=== PATIENT | female | born 1935 | race Caucasian/White ===

== ENCOUNTER 2017-03-04 07:32 | Inpatient (IN) | payer OTHER, MEDICAID ==
[2017-03-04] VITALS (11 sets, daily range): BP systolic 81–192; BP diastolic 32–128
[~2017-03-04] VITALS: Ht 162.6 cm; Wt 113.8 kg
[~2017-03-04 07:32] MED LIST: APAP/HYDROCODON1 T13 PO; ATORVASTATIN CA40 M1 PO; BG MC; COL100 PO; COUMADIN7.5 MG PO; ENALAPRIL MALEA10 MG PO; FERROUS SULFAT325 M2 PO; FUROSEMIDE40 MG PO; GLIPIZIDE10 M2 PO; GOOD SENSE OMEP20 MG PO; IPRATROPIUM BROM3 M2 HHN; ISOSORBIDE MONO30 MG PO; LAC PO; LEADER C1 TAB PO; LEVOTHYROXINE0.05 M2 PO; MAC100 PO; METFORMIN HCL1000 MG PO; METOPROLOL TAR100 MG PO; PRI20 PO; SYN5 PO; THERA TABS1 TAB PO; VITC PO; XARELTO20 M1 PO
--- NOTE | 2017-03-04 07:32 | NUR ---
PT W/C TO ED BED 5 AT 0735, PT TOOK AGONAL GASP AND THEN SNORING WITHOUT A PULSE; PER ERT PT WAS GETTING OUT OF THE CAR, PT STOOD UP OUT THE VEHICLE, PER ERT PT BECAME UNRESPONSIVE ON ARRIVAL TO TRIAGE
--- NOTE | 2017-03-04 07:35 | NUR ---
CPR IN PROGRESS
--- NOTE | 2017-03-04 07:41 | NUR ---
INTUBATION IN PROGRESS
--- NOTE | 2017-03-04 07:41 | NUR ---
MEDICATED WITH SUCCINYLCHOLINE 80 MG IVP FOR INTUBATION
--- NOTE | 2017-03-04 07:44 | NUR ---
INTUBATED, BILATERAL BREATH SOUNDS AUSCULTATED, POSITIVE CAPNOGRAPHY COLOR CHANGE
--- NOTE | 2017-03-04 07:44 | NUR ---
PALPABLE PULSES, HR 178
--- NOTE | 2017-03-04 07:55 | NUR ---
PT MOVING TO ED T1
--- NOTE | 2017-03-04 08:00 | NUR ---
X-RAY AT BEDSIDE.
--- NOTE | 2017-03-04 08:07 | NUR ---
X-RAY AT BEDSIDE.
--- NOTE | 2017-03-04 08:07 | NUR ---
PT AFIB ON DOCTOR CHIROPRACTIC
[2017-03-04 08:08] LABS: BASOPHIL % 0.4 % (0-2); PLATELET COUNT 284 x10^3mcL (130-400)
[2017-03-04 08:10] LABS: RED CELL DISTRIBUTION WIDTH 15.3 % (11.5-14.5)
--- NOTE | 2017-03-04 08:11 | NUR ---
PT DAUGHTER DOES NOT HAVE OR KNOW PT HOME MEDS AT THIS TIME, STATES "SHE TAKES A LOT", PT WAS RECENTLY STARTED ON XARELTO BUT DAUGHTER IS NOT SURE WHAT IT IS FOR, ASKED IF PT HAS HX OF AFIB BUT PT DAUGHTER IS UNSURE, PT DOES TAKE LEVOTHYROXINE PER DAUGHTER
[2017-03-04 08:15] LABS: CALCIUM 8.5 mg/dL (8.5-10.1); CARBON DIOXIDE 19.1 mmol/L (21-32); CHLORIDE SERUM 107 mmol/L (98-107); CREATININE SERUM 1.3 mg/dL (0.6-1.0); GLUCOSE SERUM 257 mg/dL (74-106); POTASSIUM SERUM 4.2 mmol/L (3.5-5.1); SODIUM SERUM 144 mmol/L (136-145)
--- NOTE | 2017-03-04 08:15 | NUR ---
RT AT BEDSIDE TO DRAW BLOOD GAS PER DRS ORDERS.
--- NOTE | 2017-03-04 08:18 | NUR ---
DR FARIAS AT BEDSIDE TO RE-EVAL PT.
[2017-03-04 08:25] LABS: ALBUMIN 3.5 g/dL (3.4-5.0); ALKALINE PHOSPHATASE 115 U/L (46-116); ALT/SGPT 87 U/L (14-59); AST/SGOT 58 U/L (15-37); BILIRUBIN TOTAL 0.59 mg/dL (0.20-1.00); MAGNESIUM 1.8 mg/dL (1.8-2.4); TOTAL PROTEIN, SERUM 6.9 g/dL (6.4-8.2)
--- NOTE | 2017-03-04 08:29 | NUR ---
RT SANTORO AT BEDSIDE, INTUBATION TUBE PULLED BACK TO 21 AT THE LIP PER DR FARIAS ORDERS AFTER RECIEVING X-RAY CONFIRMATION. OG TUBE INSERTED 6 CM BY KAT FLORENTINO PER DR FARIAS ORDERS AFTER X-RAY CONFIRMATION.
--- NOTE | 2017-03-04 08:30 | NUR ---
PT MEDICATED WITH ATIVAN [address] FARIAS ORDERS DUE TO PT BITTING ON INTUBATION TUBE. PT NO LONGER ATTEMPTING TO BITE INTUBATION TUBE AT THIS TIME. PT REMAINS ON CM.
[2017-03-04 08:37] LABS: UA SPECIFIC GRAVITY <=1.005 (1.005-1.035); microscopic required? YES; urine erythrocyte 1+ (NEGATIVE)
--- NOTE | 2017-03-04 08:42 | NUR ---
PT BECOMING AGGITATED, PT BITTING TUBE AND MOVING EXTREMITIES. DR FARIAS INFORMED.
--- NOTE | 2017-03-04 08:50 | NUR ---
DIPROVAN 5 MCG/KG/MIN INFUSING PER MD ORDERS VIA 20 GURAGE IN RIGHT HAND. ESTIMATED WEIGHT OF 260 POUNDS.
--- NOTE | 2017-03-04 09:30 | NUR ---
PT TO AND FROM CT VIA [facility], ACCOMPANIED BY MYSELF, SALLY PIERCE, AND RADIOLOGY STAFF ROSA, WITHOUT INCIDENCE.
--- NOTE | 2017-03-04 09:37 | NUR ---
PER DR. DINORA WATERMAN ORDERS FOR SEPSIS PROTOCOL FLUIDS, PT NEEDS MA TOTAL OF 2560ML OF NS TO BE GIVEN AT A RATE OF 150ML/HR.
--- NOTE | 2017-03-04 10:17 | NUR ---
CALLED TO GIVE REPORT TO ICU, PER JENNIFER, RN HAS NOT ARRIVED YET FOR REPORT. WILL CALL ME BACK WHEN RN HAS ARRIVED.
--- NOTE | 2017-03-04 10:27 | NUR ---
SOLEDAD FROM LAB AT BEDSIDE FOR LAB DRAW.
--- NOTE | 2017-03-04 10:41 | NUR ---
CALLED [facility] FOR REPORT, NURSE HAS NOT ARRIVED.
[2017-03-04 10:42] LABS: PHOSPHOROUS 7.2 mg/dL (2.5-4.9)
[2017-03-04 10:43] LABS: CHOLESTEROL/HDL RATIO 2.6
[2017-03-04 10:47] LABS: T3 TOTAL 0.73 ng/mL
[2017-03-04 10:50] LABS: FREE T4 0.79 ng/dL (0.76-1.46); FREE THYROXINE INDEX 2.4 ug/dL (1.4-4.5); T4(THYROXINE) 7.1 ug/dL (4.7-13.3)
--- NOTE | 2017-03-04 10:57 | NUR ---
REPORT RECEIVED AT THIS TIME FROM KAREEM STEPHENS RN. ALL QUESTIONS ANSWERED, ALL CONCERNS ADDRESSED. PT HAS RECEIVED 800ML OF BOLUS AT THIS TIME. WILL CONTINUE WITH BOLUS.
--- NOTE | 2017-03-04 11:07 | NUR ---
REPORT CALLED TO CAIO IN ICU TO ROOM 3, SHE WILL ASSUME CARE PRIMARY RN POST TRASNFER./
--- NOTE | 2017-03-04 11:20 | NUR ---
PT ARRIVED TO UNIT AT THIS TIME ACCOMPANIED BY ED RN, MEAT SERVICE TEAM MEMBER AND RT. PT TRANSFERRED TO BED VIA DRAWSHEET METHOD. PT PLACED ON MONITOR AND FLUID BOLUS CONTINUED.
--- NOTE | 2017-03-04 11:21 | NUR ---
PT'S PROPOFOL TURNED OFF AT THIS TIME, MEDICATIONS TO BE CHANGED.
--- NOTE | 2017-03-04 11:25 | NUR ---
FENATANYL DRIP INITIATED AT THIS TIME PER PROTOCOL. PT ON 1MCG/KG/HR AND RECEIVED ORDERED BOLUS. VERSED INITIATED AT THIS TIME PER PROTOCOL RECEIVING 1MG/HR AFTER ORDERED BOLUS. WILL CONTINUE TO MONITOR.
--- NOTE | 2017-03-04 11:28 | NUR ---
DR FRANCISCO AND DR PARK AT PT'S BEDSIDE WITH ITALIAN TEACHER AT THIS TIME TO PLACE RIGHT FEMORAL ARTERIAL LINE.
--- NOTE | 2017-03-04 11:30 | NUR ---
VECURONIUM DRIP INITIATED AT THIS TIME PER PROTOCOL. PT CURRENTLY ON 1.0 MCG/KG/MIN AT THIS TIME. NERVE STIMULATOR ATTACHED WILL MAINTAIN TRAIN OF FOUR.
--- NOTE | 2017-03-04 11:40 | NUR ---
PT'S VENTILTAOR SETTINGS CHANGED AT THIS TIME. PEEP DECREASED TO 5, Vt INCREASED TO 500.
--- NOTE | 2017-03-04 11:42 | NUR ---
DR RODRIGUEZ AND DR NICOLAS AT PT'S BEDSIDE WITH PUBLIC ADDRESS SYSTEM MECHANIC AT THIS TIME TO PLACE RIJ.
--- NOTE | 2017-03-04 11:45 | NUR ---
HYPOTHERMIA INITIATED AT THIS TIME. WILL DECREASE PT'S BODY TEMPERATURE PER PROTOCOL.
--- NOTE | 2017-03-04 11:55 | NUR ---
PT'S BLOOD PRESSURE LOW AT THIS TIME. MAP TRENDING BETWEEN 40-50. FLUID RATE INCREASED TO WIDE OPEN.
--- NOTE | 2017-03-04 11:58 | NUR ---
PT'S BLOOD PRESSURE CONTINUING TO DECREASE, SEDATION HELD AT THIS TIME.
--- NOTE | 2017-03-04 12:10 | NUR ---
LEVOPHED INITIATED AT THIS TIME AT 2MCG/KG/MIN. WILL MONITOR MAP.
--- NOTE | 2017-03-04 12:20 | NUR ---
PT'S MAP REMAINS LOW, INCREASED TO 5MCG/MIN. MAP 53 PER ARTERIAL LINE.
--- NOTE | 2017-03-04 12:30 | NUR ---
PT'S MAP 90, LEVOPHED DECREASEED TO 3MCG/MIN AT THIS TIME. SEDATION INITIATED AT 1MCG/KG/HR OF FENTANYL AND 1 MG/HR OF VERSED.
--- NOTE | 2017-03-04 12:35 | NUR ---
2AMP BICARB IVP GIVEN AT THIS TIME.
--- NOTE | 2017-03-04 12:43 | NUR ---
LEVOPHED HELD AT THIS TIME, MAP 103. WILL CONTINUE TO MONITOR.
--- NOTE | 2017-03-04 12:59 | NUR ---
RECEIVED XRAY REPORT POST CENTRAL LINE PLACEMENT CENTRAL LINE NOT IN PLACE NOTIFIED THAT CENTRAL LINE NOT IN PLACE PATIENT ON THERAPEUTIC HYPOTHERMIA CURRENT DRIPS INFUSING NS VECURONIUM FENTANYL VERSED LEVOPHED
--- NOTE | 2017-03-04 13:05 | NUR ---
ABG DRAWN AT THIS TIME FROM ARTERIAL LINE.
--- NOTE | 2017-03-04 13:15 | NUR ---
SYSTOLIC BP ELEVATED AT THIS TIME. MAP 108. FLUID RATE DECREASED BACK TO 150ML/HR FOR FLUID BOLUS.
--- NOTE | 2017-03-04 13:24 | NUR ---
DR CURTIS IN TO SEE PT AT THIS TIME. UPDATES PROVIDED AT THIS TIME.
--- NOTE | 2017-03-04 13:30 | NUR ---
DR PARK, DR RODRIGUEZ AND DRYING MACHINE OPERATOR PACKAGE YARNS AT BEDSIDE FOR CENTRAL LINE INSERTION.
--- NOTE | 2017-03-04 14:33 | NUR ---
PATIENT CURRENT BP 178/89 @ 1430 2 LITER BOLUS FROM EMERGENCY ROOM COMPLETED AT 1430
--- NOTE | 2017-03-04 14:35 | NUR ---
PT'S FiO2 DECREASED TO 90% AT THIS TIME. PEEP INCREASED TO 7.
--- NOTE | 2017-03-04 14:35 | NUR ---
XRAY AT BEDSIDE AT THIS TIME TO VERIFY CENTRAL LINE PLACEMENT
--- NOTE | 2017-03-04 14:35 | NUR ---
PT'S IV FLUIDS CHANGED TO NS AT 10ML/HR AT THIS TIME.
--- NOTE | 2017-03-04 15:00 | NUR ---
PT REASSESSED AT THIS TIME. PT LAYING IN BED SEDATED AND ON PARALYTIC AT THIS TIME. NO ACUTE CHANGES NOTED IN PT'S STATUS. PT HAS RIJ IN PLACE AND R FEMORAL ARTERIAL LINE IN PLACE. PT'S BLOOD PRESSURE REMAINS ELEVATED AT THIS TIME. PHYSCIANS AWARE. WILL CONTINUET TO MONITOR.
[2017-03-04 15:33] LABS: ALKALINE PHOSPHATASE 105 U/L (46-116); ALT/SGPT 106 U/L (14-59); AST/SGOT 95 U/L (15-37); BILIRUBIN TOTAL 0.5 mg/dL (0.20-1.00); CALCIUM 7.1 mg/dL (8.5-10.1); CARBON DIOXIDE 25.9 mmol/L (21-32); CHLORIDE SERUM 108 mmol/L (98-107); CREATININE SERUM 1.1 mg/dL (0.6-1.0); GLUCOSE SERUM 236 mg/dL (74-106); MAGNESIUM 1.3 mg/dL (1.8-2.4); PHOSPHOROUS 3.7 mg/dL (2.5-4.9); POTASSIUM SERUM 3.8 mmol/L (3.5-5.1); SODIUM SERUM 144 mmol/L (136-145)
[2017-03-04 15:36] LABS: ALBUMIN 2.9 g/dL (3.4-5.0)
--- NOTE | 2017-03-04 15:40 | NUR ---
HEPARIN DRIP INITIATED AT THIS TIME. PT BOLUSED PER PROTOCOL AND DRIP INITIATED AT 1300U/HR RATE 13ML/HR. WILL ORDER PTT FOR SIX HOURS FROM NOW.
--- NOTE | 2017-03-04 15:45 | NUR ---
LASIX IVP GIVEN AT THIS TIME.
--- NOTE | 2017-03-04 16:00 | NUR ---
DR NICOLAS MADE AWARE THAT PT'S BLOOD PRESSURE IS TRENDING IN THE 160s SYSTOLIC WITH MAP >100. NO NEW ORDERS RECEIVED.
--- NOTE | 2017-03-04 16:15 | NUR ---
PT'S FiO2 DECREASED AT THIS TIME TO 80% BY MARIA E RT, WILL CONTINUE TO MONITOR.
--- NOTE | 2017-03-04 16:19 | NUR ---
DR NICOLAS MADE AWARE OF MAGNESIUM LEVEL WELL DECREASED PHOS LEVEL. PHOSLO NOT TO BE GIVEN. MAG RIDER TO BE ORDERED.
--- NOTE | 2017-03-04 17:00 | NUR ---
DAIRY HAND AT BEDSIDE FOR VENOUS US OF BLE.
--- NOTE | 2017-03-04 17:45 | NUR ---
CIVIL CAD TECH AT BEDSIDE AT THIS TIME TO ASSESS PLEURAL EFFUSIONS.
--- NOTE | 2017-03-04 18:08 | NUR ---
ECHOTECH AT BEDSIDE AT THIS TIME.
--- NOTE | 2017-03-04 18:39 | NUR ---
DR NICOLAS PAGED AT THIS TIME. DR HAIR RETURNED CALL AT THIS TIME. INFORMED OF TROPONINS TRENDING UP AT THIS TIME. NO NEW ORDERS RECEIVED.
--- NOTE | 2017-03-04 18:58 | NUR ---
ECHO DONE. NOTIFIED NURSE OF FINDINGS.
--- NOTE | 2017-03-04 19:30 | NUR ---
REPORT RECEIVED FROM MELANI RN. ALL QUESTION ANSWERED AND CONCERNS ADDRESSED.
--- NOTE | 2017-03-04 20:09 | NUR ---
RT AT BEDSIDE TO ASSESS PT.
[2017-03-04 21:06] LABS: ALBUMIN 2.9 g/dL (3.4-5.0); ALKALINE PHOSPHATASE 101 U/L (46-116); ALT/SGPT 105 U/L (14-59); AST/SGOT 73 U/L (15-37); BILIRUBIN TOTAL 0.7 mg/dL (0.20-1.00); CALCIUM 7.6 mg/dL (8.5-10.1); CARBON DIOXIDE 19.2 mmol/L (21-32); CHLORIDE SERUM 106 mmol/L (98-107); GLUCOSE SERUM 343 mg/dL (74-106); MAGNESIUM 2.6 mg/dL (1.8-2.4); PHOSPHOROUS 3.3 mg/dL (2.5-4.9); POTASSIUM SERUM 3.4 mmol/L (3.5-5.1); SODIUM SERUM 140 mmol/L (136-145); TOTAL PROTEIN, SERUM 6.2 g/dL (6.4-8.2)
--- NOTE | 2017-03-04 21:35 | NUR ---
K+ 3.4. DR HAIR NOTIFIED THROUGH [facility].
--- NOTE | 2017-03-04 21:39 | NUR ---
DR HAIR AT BEDSIDE. UPDATED ON PT STATUS. WILL CONTINUE TO MONITOR.
--- NOTE | 2017-03-04 22:28 | NUR ---
RT AT BEDSIDE FOR EKG.
--- NOTE | 2017-03-04 23:08 | NUR ---
PTT RESULT >150. HEPARIN DRIP HELD PER PROTOCOL. PTT ORDERED AT 0105.
[2017-03-05] VITALS (18 sets, daily range): BP systolic 78–175; BP diastolic 47–112
--- NOTE | 2017-03-05 01:39 | NUR ---
TRAIN OF FOUR PERFORMED PT HAD 2:4. VECURONIUM REMAINS OFF. WILL CONTINUE TO MONITOR.
--- NOTE | 2017-03-05 02:13 | NUR ---
PTT >150 HEPARIN REMIANS OFF PTT ORDERED FOR 0400 PER PROTOCOL.TOF 4/4 VECURONIUM RESTARTED AT 0.2 MCG/KG/MIN.
[2017-03-05 03:48] LABS: ALKALINE PHOSPHATASE 86 U/L (46-116); ALT/SGPT 90 U/L (14-59); AST/SGOT 55 U/L (15-37); BILIRUBIN TOTAL 0.69 mg/dL (0.20-1.00); CARBON DIOXIDE 19.8 mmol/L (21-32); CHLORIDE SERUM 109 mmol/L (98-107); CREATININE SERUM 1.2 mg/dL (0.6-1.0); GLUCOSE SERUM 360 mg/dL (74-106); MAGNESIUM 2.1 mg/dL (1.8-2.4); POTASSIUM SERUM 3.7 mmol/L (3.5-5.1); SODIUM SERUM 142 mmol/L (136-145)
[2017-03-05 03:58] LABS: ALBUMIN 2.6 g/dL (3.4-5.0); TOTAL PROTEIN, SERUM 5.6 g/dL (6.4-8.2)
--- NOTE | 2017-03-05 04:00 | NUR ---
PT REMAINS SEDATED ON FENTANYL, VERSED AND VECURONIUM. ETT CONNECTED TO VENT AND REMAINS ON SAME VENT SETTINGS. OGT PRESENT/SECURED. PT REMIANS NPO. LIJ TLC PATENT WITH CVP MONITORING READING 17 AT THIS TIME IN SUPINE POSITION. NS INFUSING AT 10 ML/HR. F/C DRAINING TO GRAVITY. RIGHT FEMORAL ARTERIAL LINE REMAINS IN PLACE, CALIBRATED PER PROTOCOL. AWAITING ON PTT RESULT, HEPARIN REMAINS OFF. WILL CONTINUE TO MONITOR.
[2017-03-05 04:43] LABS: PLATELET COUNT 258 x10^3mcL (130-400)
[2017-03-05 04:45] LABS: BASOPHIL % 0 % (0-2); RED CELL DISTRIBUTION WIDTH 14.6 % (11.5-14.5)
--- NOTE | 2017-03-05 05:30 | NUR ---
PTT RESULTS 46.9. HEPARIN DRIP RESTARTED AT 1300 UNITS/HR. PTT ORDERED FOR 0930.
--- NOTE | 2017-03-05 06:20 | NUR ---
TUBE FEEDING INITIATED. DIABETASOURCE AC INFUSING AT 10 ML/HR, GOAL RATE 30 ML/HR, FWF 100 Q4HR. PLACEMENT VERIFIED BY AIR BOLUS TO GASTRIC REGION. WILL CONTINUE TO MONITOR.
--- NOTE | 2017-03-05 06:34 | NUR ---
DR NICOLAS NOTIFIED VIA [facility] OF ABG RESULTS.
--- NOTE | 2017-03-05 06:37 | NUR ---
RT NOTIFIED THAT DR NICOLAS ASKED FOR RT TO COME AND CHANGE SETTINGS, BASED ON RECENT ABG RESULTS. 0638 RT AT BEDSIDE.
--- NOTE | 2017-03-05 06:40 | NUR ---
PT CONTINUES TO BE SEDATED ON FENTANYL 1 MCG/KG/HR, VERSED 1 MG/HR AND VECUROMINUM 0.3 MCG/KG/MIN. PT CONTINUES ON HYPOTHERMIA THERAPY. PT WIPED DOWN WITH 2% LEOPOLDO WIPES PER PROTOCOL. PATIENT IS IN NEGATIVE FLUID BALANCE, DR NICOLAS UPDATED ON PT STATUS AND FIO2 ADJUSTED BY RT TO 90% PER DR NICOLAS'S REQUEST FOR RT TO CHANGE. WILL ENDORSE CARE TO INCOMING NURSE.
--- NOTE | 2017-03-05 07:00 | NUR ---
REPORT RECEIVED AT THIS TIME AT PT'S BEDSIDE. ALL QUESTIONS ANSWERED, ALL CONCERNS ADDRESSED.
--- NOTE | 2017-03-05 07:05 | NUR ---
PT LAYING IN BED SEDATED AT THIS TIME. TRAIN OF FOUR ATTEMPTED, ABSENT AT THIS TIME. VECURONIUM DECREASED TO 0.1 MCG/KG/MIN. WILL CONTINUE TO MONITOR.
--- NOTE | 2017-03-05 07:13 | NUR ---
PT'S SON CALLED UNIT. SON UPDATED ON PT'S STATUS.
--- NOTE | 2017-03-05 07:15 | NUR ---
PT ASSESSED AT THIS TIME. PT REMAINS ON COOLING MEASURES FOR HYPOTHERMIA. PT REMAINS SEDATED WITH FENT AT 1MCG/KG/HR AND VERSED AT 1MG/HR. VECURONIUM IN PLACE AT 0.1MCG/KG/MIN. NO ACUTE CHNAGES NOTED, TRAIN OF FOUR REMAINS ABSENT. WILL CONTINUE TO MONITOR AND PLACE ON HOLD IF INDICATED. PT IS UNABLE TO FOLLOW COMMANDS BUT HAS INCREASES IN BLOOD PRESSURE AND HR WHEN STIMULATED.
--- NOTE | 2017-03-05 07:30 | NUR ---
DR FRANCISCO IN TO ASSESS PT AT THIS TIME. UPDATES PROVIDED. BONNIE CHIRINOS'd. VENT SETTINGS CHANGED AT THIS TIME TO PC MODE: RATE 18, PEEP 7, PRESSURE 22, FiO2 80%, I-TIME 1.2. WILL CONTINUE TO MONITOR.
--- NOTE | 2017-03-05 07:35 | NUR ---
MARIA E RT ON UNIT AT THIS TIME TO ASSESS PT. UPDATED ON CHANGES TO VENT SETTINGS. ABG TO BE DRAWN IN ONE HOUR.
--- NOTE | 2017-03-05 08:00 | NUR ---
PT CONTINUES TO HAVE NO TRAIN OF FOUR. VECURONIUM HELD AT THIS TIME. WILL CONTINUE TO MONITOR.
--- NOTE | 2017-03-05 08:13 | NUR ---
DR CROCKER, RESIDENTS AND INTERNS ROUNDING AT THIS TIME. UPDATES PROVIDED. NO NEW ORDERS RECEIVED.
--- NOTE | 2017-03-05 08:31 | NUR ---
DR NICOLAS IN TO ASSESS PT AT THIS TIME. UPDATES PROVIDED.
--- NOTE | 2017-03-05 08:45 | NUR ---
ABG DRAWN AT THIS TIME FROM ARTERIAL LINE.
--- NOTE | 2017-03-05 08:52 | NUR ---
RADIOLOGY AT BEDSIDE AT THIS TIME TO TAKE CXR.
--- NOTE | 2017-03-05 09:05 | NUR ---
PEEP INCREASED TO 8 AT THIS TIME BY RT.
--- NOTE | 2017-03-05 09:30 | NUR ---
GRAVITY FLOW IRRIGATOR AT BEDSIDE FOR CMP AND PTT. LABS DRAWN BY CHADD.
--- NOTE | 2017-03-05 09:45 | NUR ---
PT'S FAMILY AT BEDSIDE. EDUCATED ON REWARMING PROCESS AND POSSIBLE OUTCOMES.
--- NOTE | 2017-03-05 09:57 | NUR ---
RT AT BEDSIDE FOR EKG AT THIS TIME.
--- NOTE | 2017-03-05 10:10 | NUR ---
FiO2 DECREASED TO 75% AT THIS TIME BY RT.
[2017-03-05 10:16] LABS: ALKALINE PHOSPHATASE 89 U/L (46-116); ALT/SGPT 98 U/L (14-59); AST/SGOT 51 U/L (15-37); BILIRUBIN TOTAL 0.81 mg/dL (0.20-1.00); CALCIUM 7.7 mg/dL (8.5-10.1); CARBON DIOXIDE 24.1 mmol/L (21-32); CHLORIDE SERUM 105 mmol/L (98-107); CREATININE SERUM 1.3 mg/dL (0.6-1.0); GLUCOSE SERUM 416 mg/dL (74-106); MAGNESIUM 2.1 mg/dL (1.8-2.4); PHOSPHOROUS 2.4 mg/dL (2.5-4.9); POTASSIUM SERUM 3.5 mmol/L (3.5-5.1); SODIUM SERUM 140 mmol/L (136-145); TOTAL PROTEIN, SERUM 6.2 g/dL (6.4-8.2)
--- NOTE | 2017-03-05 10:30 | NUR ---
PT HAS POSITIVE TRAIN OF FOUR AT THIS TIME. VECURONIUM REMAINS ON HOLD.
[2017-03-05 10:35] LABS: ALBUMIN 2.9 g/dL (3.4-5.0)
--- NOTE | 2017-03-05 10:50 | NUR ---
PTT LAB RESULTS RECEIVED AT THIS TIME. PTT 122.4, HEPARIN DRIP PLACED ON HOLD. WILL CHECK PTT AT 1250.
--- NOTE | 2017-03-05 11:15 | NUR ---
PT REASSESSED AT THIS TIME. PT LAYING IN BED. REMAINS OFF OF VECURONIUM AT THIS TIME. PT HAS POSITIVE TRAIN OF FOUR AT SENSITIVITY OF 9. PT ON FENTANYL AND VERSED AT THIS TIME. NO ACUTE CHNAGES NOTED IN PT'S STATUS. PT BREATHING EQUAL AND UNLABORED ON VENT. WILL CONTINUE TO MONITOR.
--- NOTE | 2017-03-05 11:20 | NUR ---
PT'S TUBE FEEDING ADVANCED TO 20ML/HR AT THIS TIME. PT HAS 5ML RESIDUAL NOTED AND REPLACED.
--- NOTE | 2017-03-05 11:22 | NUR ---
DR NICOLAS INFORMED OF PHOS LEVEL OF 2.4. WILL AWAIT NEW ORDERS.
--- NOTE | 2017-03-05 11:45 | NUR ---
REWARMING PROCESS INITIATED AT THIS TIME. PT'S BLANKET INCREASED FROM 33.0 DEGREES CELCIUS TO 33.5 DEGREES CELCIUS. FAMILY INFORMED. WILL CONTINUE TO MONITOR.
--- NOTE | 2017-03-05 12:10 | NUR ---
PT'S HR TRENDING IN LOW 50s AND HIGH 40s. FENTANYL HELD AT THIS TIME. PT HAVING ARRHYTHMIAS, PVCs AND PACs.
--- NOTE | 2017-03-05 12:20 | NUR ---
PT'F FiO2 TITRATED DOWN TO 70% AT THIS TIME BY RT.
--- NOTE | 2017-03-05 12:27 | NUR ---
PT CONTINUING TO HAVE CHANGES IN CARDIAC RATE AND RHYTHM WELL FLUCTUATIONIS IN BLOOD PRESSURE. WILL CONTINUE TO MONITOR.
--- NOTE | 2017-03-05 12:40 | NUR ---
DIE REPAIR MACHINIST AT BEDSIDE FOR PTT DRAW
--- NOTE | 2017-03-05 12:45 | NUR ---
PT'S GAYMAR INCREASED TO 34.0 DEGREES CELCIUS AT THIS TIME. WILL CONTINUE TO MONITOR. FAMILY UPDATED ON PT'S CURRENT STATUS.
--- NOTE | 2017-03-05 13:00 | NUR ---
PT ABLE TO NOD HEAD "YES", SQUEEZE HAND AND ATTEMPTS TO OPEN EYES. WILL CONTINUE TO MONITOR PT'S STATUS. FAMILY UPDATED.
--- NOTE | 2017-03-05 13:05 | NUR ---
DR NICOLAS UPDATED ON PT'S STATUS. NO NEW ORDERS RECEIVED.
--- NOTE | 2017-03-05 13:35 | NUR ---
PT'S PTT RECEIVED AT THIS TIME. 69.1, HEPARIN INFUSION REDUCED BY 2ML/HR. NEW RATE 1100U/HR (11ML/HR). WILL CONTINUE TO MONITOR.
--- NOTE | 2017-03-05 13:40 | NUR ---
DR WORTHINGTON AT BEDSIDE AT THIS TIME TO ASSESS PT'S STATUS. PT ABLE TO SQUEEZE L HAND ON COMMAND AND ATTEMPTS TO OPEN EYES.
--- NOTE | 2017-03-05 13:45 | NUR ---
[facility] TEMPERATURE INCREASED TO 34.5 DEGREES CELCIUS AT THIS TIME. WILL CONTINUE TO MONITOR.
--- NOTE | 2017-03-05 14:35 | NUR ---
CLAIMS ATTORNEY AT BEDSIDE FOR LAB DRAW AT THIS TIME.
--- NOTE | 2017-03-05 14:45 | NUR ---
[facility] TEMPERATURE INCREASED AT THIS TIME TO 35 DEGREES CELCIUS.
--- NOTE | 2017-03-05 15:00 | NUR ---
DR CURTIS AT PT'S BEDSIDE AT THIS TIME. UPDATES PROVIDED. DR CURTIS SPEAKING WITH FAMILY AT THIS TIME. EDUCATION PROVIDED BY DR CURTIS ON CARDIAC CATH PROCEDURE, BENEFITS AND RISKS. FAMILY CONSENTING TO PROCEDURE.
[2017-03-05 15:20] LABS: ALKALINE PHOSPHATASE 86 U/L (46-116); ALT/SGPT 95 U/L (14-59); AST/SGOT 39 U/L (15-37); BILIRUBIN TOTAL 0.8 mg/dL (0.20-1.00); CALCIUM 7.5 mg/dL (8.5-10.1); CARBON DIOXIDE 22.8 mmol/L (21-32); CHLORIDE SERUM 104 mmol/L (98-107); CREATININE SERUM 1.4 mg/dL (0.6-1.0); GLUCOSE SERUM 411 mg/dL (74-106); MAGNESIUM 1.9 mg/dL (1.8-2.4); PHOSPHOROUS 2.6 mg/dL (2.5-4.9); POTASSIUM SERUM 3.4 mmol/L (3.5-5.1); SODIUM SERUM 140 mmol/L (136-145); TOTAL PROTEIN, SERUM 6.2 g/dL (6.4-8.2)
[2017-03-05 15:24] LABS: ALBUMIN 2.8 g/dL (3.4-5.0)
--- NOTE | 2017-03-05 15:28 | NUR ---
DR NICOLAS MADE AWARE OF K LEVEL 3.4. UPDATES PROVIDED ON PLAN TO PERFORM CARDIAC CATH TOMORROW.
--- NOTE | 2017-03-05 15:38 | NUR ---
PT GRIMACING AT THIS TIME. FENTANYL INITIATED AT 0.5MCG/KG/HR. WILL CONTINUE TO MONITOR.
--- NOTE | 2017-03-05 15:45 | NUR ---
GAYMAR TEMP INCREASED AT THIS TIME TO 35.5 DEGREES CELCIUS. WILL CONTINUE TO MONITOR PT'S STATUS THROUGHOUT SHIFT.
--- NOTE | 2017-03-05 16:00 | NUR ---
FENTANYL HELD AT THIS TIME. PT BECOMING HYPOTENSIVE. WILL CONTINUE TO MONITOR.
--- NOTE | 2017-03-05 16:05 | NUR ---
PT REASSESSED AT THIS TIME. PT LAYING IN BED RESTING AT THIS TIME. PT REMAINS SEDATED BUT ABLE TO FOLLOW COMMANDS. PT ON REWARMING PROTOCOL AT THIS TIME. NO ACUTE CHANGES NOTED IN PT'S STATUS AT THIS TIME. WILL CONTINUE TO MONITOR THROUGHOUT REMAINDER OF SHIFT.
--- NOTE | 2017-03-05 16:10 | NUR ---
PT'S RESIDUAL 90ML AT THIS TIME AFTER RECENT FWF. TUBE FEEDING RATE INCREASED TO GOAL OF 30ML/HR AT THIS TIME.
--- NOTE | 2017-03-05 16:45 | NUR ---
GAYMAR TEMPERATURE INCREASED TO 36 DEGREES CELCIUS AT THIS TIME. WILL CONTINUE TO MONITOR.
--- NOTE | 2017-03-05 16:55 | NUR ---
RESTRAINTS PLACED AT THIS TIME. PT IS MORE AWAKE AND IS ATTEMPING TO PULL ON LINES.
--- NOTE | 2017-03-05 17:58 | NUR ---
PT'S BODY TEMP 97.1 AT THIS TIME PER RECTAL THERMOMETER.
--- NOTE | 2017-03-05 18:09 | NUR ---
PT'S TEMP 97.8 AT THIS TIME. WARMING MEASURES OFF AT THIS TIME. WILL MONTIOR PT'S STATUS.
--- NOTE | 2017-03-05 18:15 | NUR ---
HEPARIN HELD AT THIS TIME. WILL RESUME AT 1914 AT RATE OF 800U/HR. FOR PTT 106.2.
--- NOTE | 2017-03-05 19:15 | NUR ---
HEPARIN DRIP RESTARTED AT THIS TIME AT 800U/HR.
--- NOTE | 2017-03-05 19:15 | NUR ---
REPORT RECIEVED FROM MELANI RN. ALL QUESTIONS ANSWERED AND CONCERNS ADDRESSED.
--- NOTE | 2017-03-05 19:23 | NUR ---
REPORT GIVEN TO NOC RN AT THIS TIME. ALL QUESTIONS ANSWERED, ALL CONCERNS ADDRESSED.
--- NOTE | 2017-03-05 20:03 | NUR ---
RECIEVED PT AND IS SEDATED ON VERSED 1 MG/HR. RSS 4. HOB ELEVATED. NS IFUSING AT 10 ML/HR. HEPARIN INSFUSING AT 800 UNITS/HR. LIJ PRESENT/SECURED. F/C PRESENT AND DRAINING TO GRAVITY. ETT CONECTED TO VENT. SETTINGS; PRESSURE CONTROL, FIO2 70, RATE 18, PRESSURE 12 OVER PEEP OF 8. OGT PRESENT/SECURED. CVP AND RIGHT FEMORAL ARTERIL LINE PRESENT/SECURED. SOFT WRIST RESTRAINTS IN PLACE. BED LOWEST POSITION AND RAILS UP. WILL CONTINUE TO MONITOR.
--- NOTE | 2017-03-05 20:26 | NUR ---
SPEECH PATHOLOGIST ASSISTANT AT BEDSIDE FOR LAB DRAWS.
--- NOTE | 2017-03-05 20:41 | NUR ---
PT APPEARS DISTRESSED, ATTEMPTS TO MOVE ARMS TOWARDS LINES AND TUBING. FENTANYL INITIATED AT THIS TIME AT 1 MCG/KG/HR. WILL MONITOR PT CLOSELY.
[2017-03-05 20:53] LABS: ALBUMIN 2.6 g/dL (3.4-5.0); ALKALINE PHOSPHATASE 77 U/L (46-116); ALT/SGPT 78 U/L (14-59); AST/SGOT 35 U/L (15-37); BILIRUBIN TOTAL 0.59 mg/dL (0.20-1.00); CALCIUM 7.5 mg/dL (8.5-10.1); CHLORIDE SERUM 107 mmol/L (98-107); CREATININE SERUM 1.7 mg/dL (0.6-1.0); GLUCOSE SERUM 339 mg/dL (74-106); MAGNESIUM 1.9 mg/dL (1.8-2.4); PHOSPHOROUS 2.3 mg/dL (2.5-4.9); POTASSIUM SERUM 3.9 mmol/L (3.5-5.1); SODIUM SERUM 141 mmol/L (136-145); TOTAL PROTEIN, SERUM 5.8 g/dL (6.4-8.2)
--- NOTE | 2017-03-05 21:05 | NUR ---
LEVOPHED INFUSING AT 5 MCG/MIN. WILL MONITOR CLOSELY.
--- NOTE | 2017-03-05 21:05 | NUR ---
LEVOPHED INITIATED AT THIS TIME FOR MAP BELOW 65, WILL MONITOR PT CLOSELY.
--- NOTE | 2017-03-05 22:00 | NUR ---
LEVOPHED TITRATED TO 2 MCG/MIN FOR BP MAP OF 142, WILL MONITOR PT CLOSELY.
--- NOTE | 2017-03-05 23:15 | NUR ---
REASSESSMENT PERFORMED AT THIS TIME. PT IS SEDATED ON VERSED 1 MG/HR. NS INFUSING @ 10 ML/HR. HEPARIN 800 UNITS/HR. AND LEVOPHED 2 MCG/MIN. LIJ TLC ALL PORTS PATENT. IV'S LEFT HAND, RIGHT AC AND RIGHT HAND FLUSHING WELL. ETT/OGT PRESENT/SECURED. ETT REMAINS ON VENT WITH SAME SETTINGS. F/C DRAINING TO GRAVITY. RIGHT FEMORAL AKUBE AND CVP CALIBRATED PER PROTOCOL. SOFT WRIST RESTRAINTS REMAIN FOR PT SAFETY. BED IN LOWEST POSITION AND RAIL UP. WILL CONTINUE TO MONITOR.
--- NOTE | 2017-03-05 23:22 | NUR ---
PTT IS 50.1, NO CHANGE TO HEPARIN DRIP.
--- NOTE | 2017-03-05 23:46 | NUR ---
PT AGITATED, ATTEMPTS TO PULL AT LINES, VERSED TITRATED TO 2 MG/HR.
[2017-03-06] VITALS (15 sets, daily range): BP systolic 86–154; BP diastolic 44–86
--- NOTE | 2017-03-06 | NUR ---
TUBE FEEDING STOPPED AT THIS TIME. PT TO GO TO CARDIAC SERVICE DESK TEAM LEAD TOMORROW. WILL CONTINUE TO MONITOR.
--- NOTE | 2017-03-06 01:38 | NUR ---
VERSED TITRATED TO 1.5 MG/HR AT THIS TIME, WILL MONITOR PT CLOSELY.
--- NOTE | 2017-03-06 02:38 | NUR ---
REPRODUCTION ORDER PROCESSOR AT BEDSIDE FOR BLOOD DRAW.
--- NOTE | 2017-03-06 02:47 | NUR ---
PT IS HYPOTENSIVE AT THIS TIME, FENTANYL TITRATED OFF, WILL MONITOR PT CLOSELY.
[2017-03-06 02:57] LABS: ALKALINE PHOSPHATASE 75 U/L (46-116); ALT/SGPT 74 U/L (14-59); AST/SGOT 30 U/L (15-37); BILIRUBIN TOTAL 0.6 mg/dL (0.20-1.00); CALCIUM 7.4 mg/dL (8.5-10.1); CARBON DIOXIDE 24.1 mmol/L (21-32); CHLORIDE SERUM 108 mmol/L (98-107); CREATININE SERUM 1.8 mg/dL (0.6-1.0); GLUCOSE SERUM 219 mg/dL (74-106); MAGNESIUM 1.8 mg/dL (1.8-2.4); POTASSIUM SERUM 3.7 mmol/L (3.5-5.1); SODIUM SERUM 144 mmol/L (136-145)
--- NOTE | 2017-03-06 03:05 | NUR ---
PT REASSESSED AT THIS TIME. PT REMAINS SEDATED ON VERSED. HEPARIN, LEVOPHED, AND NS INFUSING. LIJ TLC, LEFT HAND, RIGHT AC AND RIGHT HAND IV'S PATENT/SECURED. F/C DRAINING TO GRAVITY. ETT CONNECTED TO VENT ON SAME SETTINGS. OGT PRESENT/SECURED. PT NPO FOR PROCEDURE LATER TODAY. RIGHT FEMORAL SHERLY PRESENT/SECURED. BED IN LOWEST POSITION, HOB ELEVATED, RAILS UP. WILL CONTINUE TO MONITOR.
[2017-03-06 03:10] LABS: ALBUMIN 2.5 g/dL (3.4-5.0); TOTAL PROTEIN, SERUM 5.6 g/dL (6.4-8.2)
--- NOTE | 2017-03-06 03:45 | NUR ---
RT AT BEDSIDE, TITRATED FIO2 TO 60%. WILL MONITOR PT CLOSLELY.
--- NOTE | 2017-03-06 03:48 | NUR ---
RT AT BEDSIDE TO ADMINISTER BREATHING TREATMENT.
--- NOTE | 2017-03-06 03:50 | NUR ---
LAB CALLED PTT RESULTS 52.2. NO CHANGE PER HEPARIN PROTOCOL. PT REMAINS ON 800 UNITS/HR. THIS IS NOW 2ND CONSECTUTIVE THERAPEUTIC LEVEL. PTT ORDERED FOR 03/07/17 AM LABS.
--- NOTE | 2017-03-06 04:30 | NUR ---
LEVOPHED TITRATED TO 5 MCG/MIN. SHERLY BP 73/39 MAP 52. WILL CONTINUE TO MONITOR.
--- NOTE | 2017-03-06 05:41 | NUR ---
DR. SMALL AT BEDSIDE, UPDATES PROVIDED.
--- NOTE | 2017-03-06 07:00 | NUR ---
RECEIVED REPORT FROM [facility] SHIFT CHADD MORALES AND JOSE. ALL QUESTIONS AND CONCERNS ADDRESSED AT THIS TIME. WILL ASSUME ALL CARE.
--- NOTE | 2017-03-06 07:05 | NUR ---
REPORT GIVEN TO TEE FLORENTINO. ALL QUESTION ANSWERED AND CONCERNS ADDRESSED.
--- NOTE | 2017-03-06 07:15 | NUR ---
MAP 100, TITRATE LEVO TO 4 MCG/MIN AND INITIATE FENT AT 0.5 MCG/KG/HR AT THIS TIME.
--- NOTE | 2017-03-06 07:40 | NUR ---
PT IS INTUBATED AND SEDATED ON 0.5 MCG/KG/HR AND VERSED 1.5 MG/HR, RSS 3 PT IS CALM AND FOLLOWS COMMANDS. PT EYES OPEN TO VERBAL STIMULI AND PUPILS ARE SLUGGISH 2 MM BILATERALLY. UNABLE TO ASSESS SPEECH AND ORIENTATION DUE TO ETT. PT INTUBATED WITH 7.5 ETT, 22 LL, OGT IN PLACE, TUBE FEEDING ON HOLD FOR COOK HELPER FRUIT PROCEDURE. PT ON PC, PRESSURE 22, RATE 18, FI02 60%, PEEP 8. BUL CLEAR, BLL DIM. NO COUGH OR SECRETIONS AT THIS TIME. PT HAS LIJ INFUSING NS 10 ML/HR, HEPARIN 800 UNITS, LEVO 4 MCG/MIN, CVP 19. PT HAS R FEM ART LINE, ZEROED AT THIS TIME. PT HAS GORMAN CATH IN PLACE DRAINING TO GRAVITY FAISAL COLORED URINE. NO VAGINAL DISCHARGE OR LABIAL EDEMA AT THIS TIME. PT IS SOFT, OBESE, SYMMETRICAL AND NONTENDER TO PALPATION. PT HAS HYPOACTIVE BOWEL SOUNDS X 4 QUADRANTS. PT HAS REDNESS TO PERIAREA AND ABD FOLDS. PT IS REPOSITIONED Q2H TO PREVENT SKIN BREAKDOWN. WILL CONTINUE TO MONITOR AT THIS TIME.
--- NOTE | 2017-03-06 08:00 | NUR ---
MAP 80, TITRATE LEVO TO 3 MCG/MIN AT THIS TIME. WILL CONTINUE TO MONITOR PT AT THIS TIME.
--- NOTE | 2017-03-06 08:46 | NUR ---
PATIENT ROUNDS WITH DR. CROCKER AND RESIDENTS. UPDATES PROVIDED. PRIMARY NURSE AND CHARGE NURSE AT BEDSIDE.
--- NOTE | 2017-03-06 08:55 | NUR ---
MAP 74, TITRATE LEVO TO 2 MCG/MIN AT THIS TIME. WILL CONTINUE TO MONITOR.
[2017-03-06 09:00] LABS: ALKALINE PHOSPHATASE 82 U/L (46-116); ALT/SGPT 81 U/L (14-59); AST/SGOT 34 U/L (15-37); BILIRUBIN TOTAL 0.7 mg/dL (0.20-1.00); CALCIUM 7.6 mg/dL (8.5-10.1); CARBON DIOXIDE 23.5 mmol/L (21-32); CHLORIDE SERUM 107 mmol/L (98-107); CREATININE SERUM 1.9 mg/dL (0.6-1.0); GLUCOSE SERUM 251 mg/dL (74-106); MAGNESIUM 1.9 mg/dL (1.8-2.4); PHOSPHOROUS 2.8 mg/dL (2.5-4.9); POTASSIUM SERUM 3.8 mmol/L (3.5-5.1); SODIUM SERUM 143 mmol/L (136-145)
[2017-03-06 09:09] LABS: ALBUMIN 2.7 g/dL (3.4-5.0)
--- NOTE | 2017-03-06 09:15 | NUR ---
MAP 74 CONSISTENTLY, LEVOPHED TURNED OFF AT THIS TIME. WILL CONTINUE TO MONITOR.
--- NOTE | 2017-03-06 10:00 | NUR ---
HEPARIN DRIP TURNED OFF AT THIS TIME FOR HVAC PROJECT ENGINEER PROCEDURE. WILL CONTINUE TO MONITOR.
--- NOTE | 2017-03-06 10:07 | NUR ---
PT AGREES NOT TO PULL OUT ETT OR LINES NEEDED FOR CARE, FOLLOWS COMMANDS. BILATERAL WRIST RESTRAINTS REMOVED AT THIS TIME. WILL MONITOR CLOSELY.
--- NOTE | 2017-03-06 11:25 | NUR ---
AT BEDSIDE. UPDATES PROVIDED. NO NEW ORDERS AT THIS TIME.
--- NOTE | 2017-03-06 11:26 | NUR ---
LAB AT BEDSIDE FOR PTT.
--- NOTE | 2017-03-06 11:44 | NUR ---
CHG BED BATH PROVIDED AT THIS TIME PRE ELECTRICAL WORKER PROCEDURE. NEW GOWN PROVIDED AT THIS TIME. WILL CONTINUE TO MONITOR.
--- NOTE | 2017-03-06 12:43 | NUR ---
REPORT GIVEN TO [employer] OFFICER CHADD POLO AND SCOUT MAY TAKEN AWAY TO SECURITY POLICE OFFICER AT THIS TIME. WILL AWAIT PT RETURN.
--- NOTE | 2017-03-06 15:00 | NUR ---
PT RETURNS FROM RD SCIENTIST AT THIS TIME. FENT TURNED OFF FOR BP SUPPORT, VERSED AT 3 MG/HR FOR COMFORT. PT CVP 11 UPON ARRIVAL. SPEAKING TO FAMILY AND PROVIDED UPDATES. POST OP TEACHING COMPLETED WITH GRANDDAUGHTER AND DAUGHTER, SEE CHART FOR DETAILS. PT IS TO REMAIN FLAT AND WITHOUT TUBE FEEDING UNTIL 1900. WILL CHECK VITALS AND PMS FOR POST OP PER ORDER. WILL CONTINUE TO MONITOR CLOSELY AT THIS TIME. R FEM ART LINE REMOVED IN RD SCIENTIST, CDI DRESSING IN PLACE, NO BLEEDING NOTED AT THIS TIME.
--- NOTE | 2017-03-06 15:06 | NUR ---
Initial Nutrition Assessment Dx: Cardiac Arrest, Heart Failure PMHx: A fib on xarelto, DM, HTN with hypertensive heart disease, obstructive sleep apnea, HLD, hypothyroidism, CHF, aortic sclerosis, mild mitral regurgitation, trace tricuspid regurgitation, morbid obesity, osteoarthritis PSHx: L side oophorectomy Labs: BG 251 H, BUN 36 H, Cr 1.9 H, ALB 2.7 L, ALT 81 H, WBC 14.9 H; (03/04) Troponin 1.494 H,A1C 6.5 H,Lactic Acid 3.9 H Meds: Colace, D50, ferrous sulfate, humulin R, imdur, Lasix, levophed, protonix, NS IV, solu-medrol, synthroid, theragran, versed, vitamin C 500 mg daily, zofran Current Diet Order: NPO (x1 day) (Cath at 1230 03/06/17) Prior Nutrition Support: TF Diabetisource AC at 10 ml/hr, increase 10 ml Q4h to goal 30 ml/hr, Free Water Flush: 100 ml Q4h via NGT I/O: 1745/800 (+945 ml) Ht: 64", 5' 4". Wt: 244 lb, 111 kg. BMI: 42.2 kg/m2 (Obesity Class III) IBW: 120 lb, 55 kg. %IBW: 202%. Adj BW: 151 lb ,69 kg. UBW: Unable to obtain Age: 81 Y/O F Food Allergies: Unable to obtain Skin: Redness in periarea and abd folds; Intact. Sam 13. Edema: None GI: Abd soft, obese, non-tender. Hypoactive bowel sounds. Last BM: Unknown. Pt found with cardiopulmonary arrest secondary to heart failure, acute hypoxemic hypercapnic respiratory failure secondary to aspiration pneumonia, PE r/o per doctor's notes. Per doctor's progress note 03/06, s/p rewarming, responsive to verbal command, alert, Tunisian-speaking only, plan to have angio today, hypotensive overnight, levophed drip started, holding heparin and tube feedings prior to procedure. Pt was away at [employer] for procedure during RD visit, unable to complete RD verbal interview, will attempt at F/U visit. Prior nutrition support provides 864 kcal, 43 gm protein, 1189 ml free water daily. Meets 52% of estimated nutritional needs. Estimated Nutritional Needs Based IBW 120 lb, 55 kg. Temperature: 99.6 F/37.5 C Energy: 1650 kcal/day (30 kcal/kg IBW for Ventilator Support) Protein: 83 gm/day (1.5 gm/kg for Ventilator Support) Fluids: <1.5 L/day (Heart Failure) or per doctor Nutrition Diagnosis Inadequate protein-energy intakes related to pending procedure as evidenced by TF held at this time, current NPO status x1 day due to laborer tree tapping procedure. Intervention 1. Consider resuming diet TF Diabetisource AC at 10 ml/hr, increase 10 ml Q4h to goal 30 ml/hr, Free Water Flush: 100 ml Q4 via NGT per doctor if/when medically appropriate. 2. If pt continues to tolerate TF well when on TF regimen, consider increasing TF rate to goal 50 ml/hr, Free Water Flush: 100 ml Q4h via NGT. This provides 1440 kcal, 72 gm protein, 1582 ml free water daily. Meets 87% of estimated nutritional needs. 3. Adjust insulin regimen. BG >200 mg/dL. Monitor/Evaluate Goal: NPO <5-7 days; Diet advancement; BG <200 mg/dL Monitor: NPO status, diet advancement, labs (BG), skin integrity, GI function, weights F/U in 2-3 days as HIGH risk (03/08-03/09)
--- NOTE | 2017-03-06 16:42 | NUR ---
RT AT BEDSIDE TO TITRATE FI02 TO 50%. WILL CONTINUE TO MONITOR.
--- NOTE | 2017-03-06 16:59 | NUR ---
CARDIZEM INITIATED AT 5MG/HR PER ORDER. WILL CONTINUE TO MONITOR PT AT THIS TIME.
--- NOTE | 2017-03-06 17:42 | NUR ---
AT BEDSIDE, UPDATES PROVIDED. TITRATED PEEP TO 5, FI02 TO 45%. WILL CONTINUE TO MONITOR AT THIS TIME.
--- NOTE | 2017-03-06 17:50 | NUR ---
R FEM CHECK, SKIN STILL WARM, DRY, NO BLEEDING AT THE SITE, PULSE CHECK AUSCULTATED VIA DOPPLER. WILL CONTINUE TO CLOSELY MONITOR FOR ANY CHANGE IN PT STATUS.
--- NOTE | 2017-03-06 19:15 | NUR ---
RECEIVED REPORT FROM DAY SHIFT RN TEE. ALL QUESTIONS AND CONCERNS ADDRESSED AT THIS TIME. WILL RESUME CARE AND WILL CONTINUE TO MONITOR.
--- NOTE | 2017-03-06 19:30 | NUR ---
PATIENT RECEIVED INTUBATED AND SEDATED ON VERSED 3MG/HR AND FENTANYL 0.5 MCG/KG/HR. NO DISTRESS NOTED. PATIENT EASILY AWAKENS WITH TACTILE STIMULUS. PATIENT IS CALM AND ABLE TO FOLLOW COMMANDS. PATIENT INTUBATED WITH ETT 7.5, LL AT 22. OGT IN PLACE, FEEDING RESTARTED AT 10ML/HR. PATIENT ON PC, PRESSURE AT 22, RATE AT 18, PEEP AT 5 AND FIO2 AT 45%. PATIENT HAS LEFT IJ, PATENT AND INTACT. NS INFUSING AT 10ML/HR. GORMAN TO GRAVITY DRAINING YELLOW URINE. NO SIGNS AND SYMPTOMS OF INFECTION OR BLEEDING NOTED TO RIGHT FEM ART LINE SITE, DRESSING CDI. WILL CONTINUE TO MONITOR.
--- NOTE | 2017-03-06 23:00 | NUR ---
PATIENT STABLE AT THIS TIME. NO DISTRESS NOTED. NO SIGNS AND SYMPTOMS OF PAIN/DISCOMFORT NOTED. WILL CONTINUE TO MONITOR.
[2017-03-07] VITALS (19 sets, daily range): BP systolic 92–137; BP diastolic 46–89
--- NOTE | 2017-03-07 00:30 | NUR ---
PATIENT STABLE AT THIS TIME. NO DISTRESS NOTED. NO SIGNS AND SYMPTOMS OF PAIN NOTED. WILL CONTINUE TO MONITOR.
--- NOTE | 2017-03-07 02:31 | NUR ---
PATIENT CONTINUES TO BE STABLE AT THIS TIME. NO DISTRESS NOTED. NO SIGNS AND SYMPTOMS OF PAIN/DISCOMFORT NOTED. WILL CONTINUE TO MONITOR.
--- NOTE | 2017-03-07 04:05 | NUR ---
CARDIZEM IV INCREASED TO 10MG/HR AT THIS TIME. NI=239/79. WILL CONTINUE TO MONITOR.
--- NOTE | 2017-03-07 05:10 | NUR ---
CARDIZEM INCREASED TO 15MG/HR FOR INCREASED HR. MB=520/76. WILL CONTINUE TO MONITOR.
--- NOTE | 2017-03-07 06:51 | NUR ---
PATIENT STABLE AT THIS TIME. BED BATH GIVEN. GORMAN AND PERICARE PROVIDED. NO DISTRESS NOTED. NO SIGNS AND SYMPTOMS OF PAIN NOTED. WILL CONTINUE TO MONITOR AND ENDORSE TO DAY SHIFT RN.
--- NOTE | 2017-03-07 07:45 | NUR ---
RECEIVED PATIENT FROM CHADD ROBERTS, DROWSY, WILL AWAKE WITH VERBAL AND TACTILE STIMULI, AND NO SIGNS OF DISTRESS NOTED. RESPIRATIONS EVEN SHALLOW, ON VENTILATOR AC MODE, FIO2 45, RATE 18, PEEP 5, PRESSURE SUPP 22, AND O2 SAT 96%, ETT/OGT IN PLACE AND SECURE. PALPABLE MODERATE PULSES TO BUE AND WEAK PEDAL PULSES TO BUE. ATIAL FIBRILLATION NOTED ON MONITOR HR 110 WITH NO SIGNS OF CHEST PAIN NOTED. ACTIVE BOWEL SOUNDS ABD SOFT/DISTENDED, WITH NO SIGNS OF ABD PAIN NOTED, AND NO N/V. NG TUBE FEEDING DIABETASOURCE INFUSING AT 10ML/HR FREELY WITH 30ML RESIDUAL NOTED AND REPLACED. SALINE LOCK TO LH/RH CDI AND FLUSH WELL. LIJ NOTED AND INFUSING FENTANYL AT 0.5MCG, CARDIZEM 15MCG AND VERSED AT 3MG, NS AT 10ML/HR FREELY TO TRIPLE LUMEN CATHEDER FREELY. CALL LIGHT WITHIN REACH, BED TO LOWEST POSITION, AND WILL CONTINUE TO MONITOR.
--- NOTE | 2017-03-07 07:45 | NUR ---
RECEIVED PATIENT FROM CHADD ROBERTS, DROWSY, WILL AWAKE WITH VERBAL AND TACTILE STIMULI, AND NO SIGNS OF DISTRESS NOTED. RESPIRATIONS EVEN SHALLOW, ON VENTILATOR AC MODE, FIO2 45, RATE 18, PEEP 5, PRESSURE SUPP 22, AND O2 SAT 96%, ETT/OGT IN PLACE AND SECURE. PALPABLE MODERATE PULSES TO BUE AND WEAK PEDAL PULSES TO BUE. ATIAL FIBRILLATION NOTED ON MONITOR HR 110 WITH NO SIGNS OF CHEST PAIN NOTED. ACTIVE BOWEL SOUNDS ABD SOFT/DISTENDED, WITH NO SIGNS OF ABD PAIN NOTED, AND NO N/V. NG TUBE FEEDING DIABETASOURCE INFUSING AT 10ML/HR FREELY WITH 30ML RESIDUAL NOTED AND REPLACED. SALINE LOCK TO LH/RH/RAC CDI AND FLUSH WELL. LIJ NOTED AND INFUSING FENTANYL AT 0.5MCG/KG/HR, CARDIZEM 15MG/HR AND VERSED AT 3MG/HR, NS AT 10ML/HR FREELY TO TRIPLE LUMEN CATHEDER FREELY. CALL LIGHT WITHIN REACH, BED TO LOWEST POSITION, AND WILL CONTINUE TO MONITOR.
--- NOTE | 2017-03-07 08:22 | NUR ---
PATIENT ROUNDS WITH DR. FARIA AND RESIDENTS. PRIMARY NURSE AND CHARGE NURSE AT BEDSIDE. UPDATES PROVIDED.
--- NOTE | 2017-03-07 08:24 | NUR ---
LAB AT BEDSIDE FOR MORNING LAB DRAW.
[2017-03-07 08:47] LABS: PLATELET COUNT 250 x10^3mcL (130-400)
[2017-03-07 08:54] LABS: RED CELL DISTRIBUTION WIDTH 15.5 % (11.5-14.5)
--- NOTE | 2017-03-07 08:55 | NUR ---
USER EXPERIENCE LEAD AT BEDSIDE.
[2017-03-07 09:08] LABS: CALCIUM 7.6 mg/dL (8.5-10.1); CARBON DIOXIDE 24.8 mmol/L (21-32); CHLORIDE SERUM 107 mmol/L (98-107); CREATININE SERUM 2.3 mg/dL (0.6-1.0); GLUCOSE SERUM 320 mg/dL (74-106); MAGNESIUM 2.1 mg/dL (1.8-2.4); PHOSPHOROUS 4.4 mg/dL (2.5-4.9); POTASSIUM SERUM 3.7 mmol/L (3.5-5.1); SODIUM SERUM 144 mmol/L (136-145)
--- NOTE | 2017-03-07 09:10 | NUR ---
ERIC USING ABD MUSCLES TO BREATH, INCREASED VERSED TO 5MG PER RECCOMENDATION OF RT MARIA E, WILL CONTINUE TO MONITOR.
--- NOTE | 2017-03-07 10:04 | NUR ---
ECHOCARDIOGRAM COMPLETED
--- NOTE | 2017-03-07 10:08 | NUR ---
PATIENT USING ABD MUSCLES TO BREATH, VERSED INCREASED TO 7MG/HR, WILL CONTINUE TO MONITOR
--- NOTE | 2017-03-07 10:28 | NUR ---
FENTANYL INCREASED TO 1MCG/KG/HR DUE TO PATIENT USING ABD MUSCLES TO BREATH, WILL CONTINUE TO MONITOR.
--- NOTE | 2017-03-07 10:45 | NUR ---
CARDIZEM DECREASED TO 10MG/HR HR RANGEING FROM 70-80s, WILL CONTINUE TO MONITOR.
--- NOTE | 2017-03-07 11:49 | NUR ---
PT STILL USING ABD MUSCLES TO BREATH, COUGHING AND LOOKING RESTLESS. TITRATED VERSED TO 10 MG/HR AT THIS TIME. WILL DECREASE ONCE COMFORT LEVEL IS MET. RSS 2. WILL CONTINUE TO MONITOR AT THIS TIME.
[2017-03-07 11:58] LABS: BAND NEUTROPHIL 1 % (0-10); MONOCYTE 4 % (0-7); SEGMENTED NEUTROPHILS 90 % (37-75)
--- NOTE | 2017-03-07 11:58 | NUR ---
PATIENT DROWSY, REPSONDS TO VERBAL AND TACTILE STIMULI WITH SLOW RESPONDS, WITH NO SIGNS OF DISTRESS NOTED. RESPIRATIONS EVEN SHALLOW, ON VENTILATOR AC MODE, FIO2 45, RATE 18, PEEP 5, PRESSURE SUPP 22, AND O2 SAT 95%, ETT/OGT IN PLACE AND SECURE. PALPABLE MODERATE PULSES TO BUE AND WEAK PEDAL PULSES TO BUE. ATIAL FIBRILLATION NOTED ON MONITOR HR 84 WITH NO SIGNS OF CHEST PAIN NOTED. ACTIVE BOWEL SOUNDS ABD SOFT/DISTENDED, WITH NO SIGNS OF ABD PAIN NOTED, AND NO N/V/D. NG TUBE FEEDING DIABETASOURCE 25ML RESIDUAL NOTED AND REPLACED, INCREASED TUBE FEEDING TO 20ML/HR. SALINE LOCK TO LH/RH/RAC CDI AND FLUSH WELL. LIJ INFUSING FENTANYL AT 1MCG/KG/HR, CARDIZEM 10MG/HR AND VERSED AT 7MG/HR, NS AT 10ML/HR FREELY TO TRIPLE LUMEN CATHEDER FREELY. CALL LIGHT WITHIN REACH, BED TO LOWEST POSITION, AND WILL CONTINUE TO MONITOR.
[2017-03-07 12:00] LABS: rbc morphology (normal/abnorm) ABNORMAL (NORMAL)
--- NOTE | 2017-03-07 12:00 | NUR ---
PT HR 57-70'S, TITRATE CARDIZEM TO 5 MCG/HR. PT LOW VOLUMING ON VENT, TITRATE VERSED TO 3 MG/HR AND FENT TO 0.5 MCG/KG/HR AT THIS TIME. MARIA E PIERCE PAGED AT THIS TIME. WILL CONTINUE TO MONITOR.
--- NOTE | 2017-03-07 12:10 | NUR ---
MADE AWARE OF PT ABD BREATHING AND LOW VOLUMING. REQUESTING FOLLOW UP CXR AT THIS TIME.
--- NOTE | 2017-03-07 12:59 | NUR ---
AT BEDSIDE, UPDATES PROVIDED. DR TO DC CARDIZEM DRIP, LOWER LOPRESSOR TO 25 MG BID, DC HEPARIN DRIP AND START PT ON XARELTO. WILL CONTINUE TO MONITOR AT THIS TIME.
--- NOTE | 2017-03-07 14:48 | NUR ---
AT BEDSIDE, UPDATES PROVIDED. PLACED PT ON CPAP AT THIS TIME. IF PT TOLERATES, TITRATE PRESSURE TO 12. RT MADE AWARE.
--- NOTE | 2017-03-07 15:08 | NUR ---
SANGUINEOUS DRAINAGE NOTED DRAINING OUT OF GORMAN CATHEDER WILL PAGE BP 106/46 (73) HR 87 O2 SAT 97%, RESPIRATIONS 22, WILL CONTINUE TO MONITOR.
--- NOTE | 2017-03-07 15:09 | NUR ---
PAGED TO REPORT SANGUINEOUS DRAINAGE NOTED DRAINING OUT OF GORMAN CATHEDER, WILL CONTINUE TO MONITOR.
--- NOTE | 2017-03-07 15:10 | NUR ---
MADE AWARE OF SANGUINEOUS DRAINAGE NOTED DRAINING OUT OF GORMAN CATHEDER, SAID TO NOTIFY AND SAID SHE WILL COME AND ASSESS PATIENT, NO FURTHER NEW ORDERS AND WILL CONTINUE TO MONITOR.
--- NOTE | 2017-03-07 15:19 | NUR ---
AND MADE AWARE OF SANGUINEOUS DRAINAGE NOTED DRAINING OUT OF GORMAN CATHEDER, NO NEW ORDERS, AND WILL CONTINUE TO MONITOR.
--- NOTE | 2017-03-07 15:36 | NUR ---
AT BEDSIDE, SHOWED GORMAN CATHEDER TUBING SHOWING SANGUNEOUS FLUID FREELY BY GRAVIY, BP 119/71 MAP 90, HR 80, O2 SAT 97%, SAID SHE WILL ORDER ULTRASOUND, AWAITING ORDERS AND WILL CONTINUE TO MONITOR.
--- NOTE | 2017-03-07 15:45 | NUR ---
Pt PUT ON CPAP TRIAL. PSV 15, PEEP +[address] FRANCISCO. PLAN IS TO DECREASE PSV TOLERATED. CPAP AND ABG TO FOLLOW IN AM.
--- NOTE | 2017-03-07 15:45 | NUR ---
PATIENT DROWSY, REPSONDS TO VERBAL AND TACTILE STIMULI WITH SLOW RESPONDS, WITH NO SIGNS OF DISTRESS NOTED. RESPIRATIONS EVEN SHALLOW, ON CPAP 15/5 AND O2 SAT 96%, ETT/OGT IN PLACE AND SECURE. PALPABLE MODERATE PULSES TO BUE AND WEAK PEDAL PULSES TO BUE. ATIAL FIBRILLATION NOTED ON MONITOR HR 93 WITH NO SIGNS OF CHEST PAIN NOTED. ACTIVE BOWEL SOUNDS ABD SOFT/DISTENDED, WITH NO SIGNS OF ABD PAIN NOTED, AND NO N/V/D. GORMAN CATHEDER IN PLACE FLOWING SANUINEOUS FLUID FREELY BY GRAVITY WTIH AND AWARE, NG TUBE FEEDING DIABETASOURCE WITH 15ML RESIDUAL NOTED AND REPLACED, INCREASED TUBE FEEDING TO 20ML/HR. SALINE LOCK TO LH/RH/RAC CDI AND FLUSH WELL. LIJ INFUSING VERSED AT 1MG/HR, NS AT 70ML/HR FREELY TO TRIPLE LUMEN CATHEDER FREELY. CALL LIGHT WITHIN REACH, BED TO LOWEST POSITION, AND WILL CONTINUE TO MONITOR.
--- NOTE | 2017-03-07 16:35 | NUR ---
PSV DECREASED TO 12, PEEP +5, FIO2 45%. WILL CONTINUE TO MONITOR.
--- NOTE | 2017-03-07 16:46 | NUR ---
AT BEDSIDE, UPDATES PROVIDED. NO NEW ORDERS AT THIS TIME.
--- NOTE | 2017-03-07 17:50 | NUR ---
Pt SWITCHED BACK TO PC 22, RR 18, PEEP +5, FIO2 45%, I TIME 1.2, WILL MONITOR.
--- NOTE | 2017-03-07 17:50 | NUR ---
NOTICED OTG TUBING LEAKING TUBE FEEDINGS, TUBE FEEDINGS HELD, ORDERED KUB FOR PLACEMENT, WILL CONTINUE TO MONITOR.
--- NOTE | 2017-03-07 18:45 | NUR ---
PATIENT AWAKE, RESPONDS TO VERBAL AND TACTILE STIMULI, NO DISTRESS NOTED, RESPIATIONS EVEN AND SHALLOW, ON PC FIO2 45, PEEP 5, RATE 18, O2 SAT 95%, BP 114/75 HR 103 WITH NO SIGNS OF CHEST PAIN NOTED. GORMAN CATHEDER NOW FLOWING FAISAL COLORED URINE FREELY BY GRAVITY. LIJ CDI WITH ALL PORTS PATENT, VERSED INFUSING AT 1MG/HR, SALINE LOCK TO LH/RH/RAC CDI. TUBE FEEDING HELD UNTIL RESULTS OF KUB, BED TO LOWEST POSITION, SIDE RAILS UP X2, CALL LIGHT WITHIN REACH, AND WILL ENDORSE TO NIGHT NURSE.
--- NOTE | 2017-03-07 19:00 | NUR ---
RECEIVED BEDSIDE REPORT FROM CHADD ARGUELLO. ALL QUESTIONS AND CONCERNS ADDRESSED AT THIS TIME. WILL ASSUME CARE. PT IN ICU BED 3 IN SEMI FOWLERS. VS STABLE. AAOX3 AND GCS OF 10. PUPILS REACT BRISK TO LIGHT, 2MM. FOLLOWS COMMANDS. NO COMPLAINTS OF TAVERAS. ETT AND OGT IN PLACE. VENT SETTINGS, PRESSURE SUPPORT, FIO2 45, RATE 18, PEEP 5, PSV 22. LS CLEAR BILAT UPPER LOBES AND DIMINISHED BILAT LOWER. CHEST RISE AND FALL EQUAL AND UNLABORED. S1S2 AUSCULTATED. HR 90. BLE+BUE PULSES EQUAL AND WEAK. TRACE EDEMA ON BILAT HANDS. SKIN IS WARM, DRY, MCNEIL, AND INTACT. LIJ IN PLACE, SECURE, AND ALL PORTS FLUSHING WELL. FC IN PLACE, SECURE, AND DRAINING TO GRAVITY. NO SIGNS OF ACUTE DISTRESSED. BED LEFT IN THE LOWEST POSITION AND CALL LIGHT LEFT IN PLACE. WILL CONTINUE TO MONITOR.
--- NOTE | 2017-03-07 20:45 | NUR ---
FAMILY AT BEDSIDE. RESTING COMFORTABLY. NO SIGNS OF ACUTE DISTRESS.
--- NOTE | 2017-03-07 21:33 | NUR ---
RT AT BEDSIDE. PT RESTING COMFORTABLY. NO SIGNS OF ACUTE DISTRESS. WILL CONTINUE TO MONITOR.
[2017-03-08] VITALS (14 sets, daily range): BP systolic 104–144; BP diastolic 33–101
--- NOTE | 2017-03-08 01:25 | NUR ---
HR 120 - 140s. INFORMED DR HAIR AND PER DR HAIR, ORDERED 10MG OF CARDIZEM. WILL CONTINUE TO MONITOR FOR EFFECTS.
--- NOTE | 2017-03-08 01:45 | NUR ---
DR HAIR AT BEDSIDE. ALL QUESTIONS AND CONCERNS ADDRESSED AT THIS TIME.
--- NOTE | 2017-03-08 02:53 | NUR ---
FENT TITRATED UP FROM 0.2MCG TO 0.4MCG AND VERSED TITRATED UP FROM 1MG TO 2MG. RSS 2.
--- NOTE | 2017-03-08 03:13 | NUR ---
TF RATE TITRATED U[P FROM 30ML/HR TO 40ML/HR. RESIDUAL 20ML AND REPLACED. GOAL MET.
--- NOTE | 2017-03-08 03:35 | NUR ---
RT AT BEDSIDE TO GIVEN BREATHING TX.
--- NOTE | 2017-03-08 03:59 | NUR ---
DR HAIR AT BEDSIDE. ADRESSED PT PRESISTANT ELEVATED HR. AWAITING ORDERS.
--- NOTE | 2017-03-08 04:23 | NUR ---
PER DR HAIR, TITRATED FENT FROM 0.4MCG TO 2MCG. VERSED TITRATED FROM 2MG TO 3MG. RSS 3
--- NOTE | 2017-03-08 05:30 | NUR ---
CARDIZEM STARTED AT THIS TIME, HR IS 130-150. CARDIZEM INFUSING AT 5 MG/HR. WILL CONTINUE TO MONITOR FOR MEDICATION EFFECTS. FENTANYL AND VERSED TURNED OFF AT THIS TIME FOR VENT WEANING IN THE MORNING, PER DR NICOLAS.
--- NOTE | 2017-03-08 06:24 | NUR ---
CARDIZEM INCREASED TO 10 MG/HR, HR CONTINUES TO BE IN THE 130-150 RANGE. WILL CONTINUE TO MONITOR.
[2017-03-08 06:35] LABS: BASOPHIL % 0.1 % (0-2); PLATELET COUNT 251 x10^3mcL (130-400)
[2017-03-08 06:48] LABS: RED CELL DISTRIBUTION WIDTH 15.8 % (11.5-14.5)
[2017-03-08 06:59] LABS: CALCIUM 7.8 mg/dL (8.5-10.1); CARBON DIOXIDE 25.2 mmol/L (21-32); CHLORIDE SERUM 108 mmol/L (98-107); CREATININE SERUM 2.4 mg/dL (0.6-1.0); GLUCOSE SERUM 283 mg/dL (74-106); POTASSIUM SERUM 4.1 mmol/L (3.5-5.1); SODIUM SERUM 145 mmol/L (136-145)
--- NOTE | 2017-03-08 07:13 | NUR ---
BEDSIDE REPORT GIVEN TO CHADD OLIVEIRA. ALL CARE WAS ENDORSED. ALL QUESTIONS AND CONCERNS ADDRESSED.
--- NOTE | 2017-03-08 07:20 | NUR ---
RECEIVED PATIENT FROM RIYA FLORENTINO, PATIENT DROWSY, REPSONDS TO VERBAL AND TACTILE STIMULI, UNABLE TO ASSESS VERABAL RESPONSE DUE TO PATIENT ON VENTILAOR PRESSURE AC MODE FIO2 45, PEEP 5, RESPIRATIONS 18, RESPIRATIONS EVEN SHALLOW, O2 SAT 96%, ETT/OGT IN PLACE AND SECURE. PALPABLE WEAK PULSES TO BUE/BLE. ATRIAL FIBRILLATION NOTED ON MONITOR HR 108 NO SIGNS OF CHEST PAIN NOTED. ACTIVE BOWEL SOUNDS ABD SOFT/DISTENDED, NO SIGNS OF ABD PAIN NOTED, AND NO N/V/D. GORMAN CATHEDER IN PLACE FLOWING TEA LIKE URINE WITH SANUINEOUS FLUID NOTED TO GORMAN CATHEDER TUBING FREELY BY GRAVITY, TUBE FEEDING DIABETASOURCE WITH 5ML RESIDUAL NOTED AND REPLACED, AND INFUSING AT 40ML/HR TO OGT. SALINE LOCK TO LH/RH/RAC CDI AND FLUSH WELL. LIJ INFUSING NS AT 70ML/HR AND CARDIZEM AT 10MG/HR FREELY TO TRIPLE LUMEN CATHEDER WITH ALL PORTS PATENT. CALL LIGHT WITHIN REACH, BED TO LOWEST POSITION, AND WILL CONTINUE TO MONITOR.
--- NOTE | 2017-03-08 07:51 | NUR ---
MADE MADE AWARE SANGUINEOUS URINE NOTED TO GORMAN CATHEDER, SAID RENAL ULTRASOUND WAS NEGATIVE, NO NEW ORDERS AND WILL CONTINUE TO MONITOR.
--- NOTE | 2017-03-08 07:58 | NUR ---
PATIENT ROUNDS WITH DR. FARIA AND RESIDENTS. PRIMARY NURSE AND CHARGE NURSE AT BEDSIDE. UPDATES PROVIDED.
--- NOTE | 2017-03-08 08:23 | NUR ---
PATIENT WAS PLACED ON CPAP MODE BY RT, PATIENT HAD PERIODS OF APNEA THEN PLACED BACK ON PRESSURE AC MODE, O2 SAT 96%, RT WILL TRY PLACING PATIENT ON CPAP AGAIN LATER, WILL CONTINUE TO MONITOR.
--- NOTE | 2017-03-08 08:45 | NUR ---
TUBE FEEDINGS HELD FOR POSSIBLE EXTUBATION, PATIENT WILL BE PLACED ON CPAP WHEN LESS DROWSY, WILL CONTINUE TO MOINTOR.
--- NOTE | 2017-03-08 09:17 | NUR ---
@0821 DID CPAP TRIAL ON THE PT ORDERED BY . PT DID NOT TOLERATE CPAP PT WENT APNEIC. PLACED BACK IMMEDIATELY ON THE PREVIOUS VENT MODE. RN PRESENT DURING THE CPAP TRIAL. INFORMED SEARCH ENGINE MARKETING MANAGER OF THE PT'S CONDITION. WILL CONT TO MONITOR.
--- NOTE | 2017-03-08 09:55 | NUR ---
CARDIZEM DECREASED TO 5MG/HR HR HAS BEEN 70-80, WILL CONTINUE TO MONITOR.
--- NOTE | 2017-03-08 10:09 | NUR ---
RT AT BEDSIDE FOR CPAP 15/5. ABG IN AN HOUR, WEANING PARAMETERS TO BE DONE. WILL CONTINUE TO MONITOR AT THIS TIME.
--- NOTE | 2017-03-08 10:20 | NUR ---
@1003 - PUT PT ON CPAP TRIAL, PSV 15, PEEP +5, 45%. ABG TO FOLLOW IN AN HOUR. WILL MONITOR
--- NOTE | 2017-03-08 11:14 | NUR ---
RT AT BEDSIDE DOING ABG, PATIENT TOLERATING WELL, WILL CONTINUE TO MONITOR.
--- NOTE | 2017-03-08 11:36 | NUR ---
PATIENT DROWSY, REPSONDS TO VERBAL AND TACTILE STIMULI, UNABLE TO ASSESS VERABAL RESPONSE DUE TO PATIENT ON VENTILAOR PRESSURE CPAP MODE PSV 15 PEEP 5 RESPIRATIONS 14, RESPIRATIONS EVEN SHALLOW, O2 SAT 97%, ETT/OGT IN PLACE AND SECURE. PALPABLE WEAK PULSES TO BUE/BLE. ATRIAL FIBRILLATION NOTED ON MONITOR HR 87 NO SIGNS OF CHEST PAIN NOTED. ACTIVE BOWEL SOUNDS ABD SOFT/DISTENDED, NO SIGNS OF ABD PAIN NOTED, AND NO N/V/D. GORMAN CATHEDER IN PLACE FLOWING TEA LIKE URINE TO GORMAN CATHEDER FREELY BY GRAVITY, TUBE FEEDINGS HELD DUE TO POSSIBLE EXTUBATION TODAY, SALINE LOCK TO LH/RH/RAC CDI AND FLUSH WELL. LIJ INFUSING NS AT 70ML/HR AND CARDIZEM AT 15MG/HR FREELY TO TRIPLE LUMEN CATHEDER WITH ALL PORTS PATENT. CALL LIGHT WITHIN REACH, BED TO LOWEST POSITION, AND WILL CONTINUE TO MONITOR.
--- NOTE | 2017-03-08 11:36 | NUR ---
PATIENT DROWSY, REPSONDS TO VERBAL AND TACTILE STIMULI, UNABLE TO ASSESS VERABAL RESPONSE DUE TO PATIENT ON VENTILAOR PRESSURE CPAP MODE PSV 15 PEEP 5 RESPIRATIONS 14, RESPIRATIONS EVEN SHALLOW, O2 SAT 97%, ETT/OGT IN PLACE AND SECURE. PALPABLE WEAK PULSES TO BUE/BLE. ATRIAL FIBRILLATION NOTED ON MONITOR HR 87 NO SIGNS OF CHEST PAIN NOTED. ACTIVE BOWEL SOUNDS ABD SOFT/DISTENDED, NO SIGNS OF ABD PAIN NOTED, AND NO N/V/D. GORMAN CATHEDER IN PLACE FLOWING TEA LIKE URINE TO GORMAN CATHEDER FREELY BY GRAVITY, TUBE FEEDINGS HELD DUE TO POSSIBLE EXTUBATION TODAY, SALINE LOCK TO LH/RH/RAC CDI AND FLUSH WELL. LIJ INFUSING NS AT 70ML/HR AND CARDIZEM AT 5MG/HR FREELY TO TRIPLE LUMEN CATHEDER WITH ALL PORTS PATENT. CALL LIGHT WITHIN REACH, BED TO LOWEST POSITION, AND WILL CONTINUE TO MONITOR.
--- NOTE | 2017-03-08 11:51 | NUR ---
AT BEDSIDE UPDATES PROVIDED, AND AWARE PATIENT WAS PLACED ON CARDIZEM IV DUE TO HR PREVIOUSLY IN THE 130'S INFUSING AT 5MG/HR, SAID HE WILL PLACE PATIENT ON METROPOLOL TO 50 BID, SAID TO TITRATE OFF CARDIZEM IF HR STAYS BELOW 70, WILL FOLLOW ORDERS AND WILL CONTINUE TO MONITOR.
--- NOTE | 2017-03-08 12:45 | NUR ---
PT GIVEN FULL BED BATH WITH GOWN AND LINEN CHANGE. CHG WIPES APPLIED PER PROTOCOL AT THIS TIME. WILL CONTINUE TO MONITOR.
--- NOTE | 2017-03-08 13:05 | NUR ---
PATIENT ON CPAP PSV 12 PEEP 5 PLACED BY RT, TOLERATING WELL. O2 SAT 97%, WILL CONTINUE TO MONITOR
--- NOTE | 2017-03-08 13:10 | NUR ---
1257: TITRATED PSV TO 12. WILL CONT TO MONITOR
--- NOTE | 2017-03-08 14:00 | NUR ---
RT LAND AND PAVEL TESTING VC AND NIF, VC 700 AND NIF 28, WILL CONTINUE TO MONITOR.
--- NOTE | 2017-03-08 14:27 | NUR ---
PAGED WITH WEANING PARAMETER RESULTS, ABG RESULTS AND PT UPDATE. OK PER TO EXTUBATE PT, ALL SEDATION TO BE DC'D AND IS TEACHING TO BE DONE. WILL CONTINUE TO MONITOR AT THIS TIME.
--- NOTE | 2017-03-08 14:48 | NUR ---
RT AT BEDSIDE TO EXTUBATE PT, PT EXTUBATED AT 1448 AND PLACED ON 4L NC SATING 95%. NO ACCESSORY MUSCLE USE OR LABORED BREATHING NOTED. PT DENIES FEELING SOB. PER , PLACE PT ON BIPAP IF NEEDED AND AT NIGHT (AND PRN). WILL CONTINUE TO MONITOR PT CLOSELY AT THIS TIME.
--- NOTE | 2017-03-08 15:16 | NUR ---
PATIENT AAOX3 TO PERSON, PLACE, BIRTHDAY, REORIENTED TO TIME, SPEECH SLOW/CLEAR, ABLE TO FOLLOW SIMPLE COMMANDS, RESPIRATIONS 23, RESPIRATIONS EVEN SHALLOW, O2 SAT 94-95%, AND DENIES SOB.ATRIAL FIBRILLATION HR 89 DENIES CHEST PAIN. DENIES N/V. GORMAN CATHEDER IN PLACE FLOWING TEA LIKE URINE TO GORMAN CATHEDER FREELY BY GRAVITY, SALINE LOCK TO LH/RH/RAC CDI AND FLUSH WELL. LIJ INFUSING NS AT 70ML/HR AND CARDIZEM AT 5MG/HR FREELY TO TRIPLE LUMEN CATHEDER WITH ALL PORTS PATENT. CALL LIGHT WITHIN REACH, BED TO LOWEST POSITION, AND WILL CONTINUE TO MONITOR.
--- NOTE | 2017-03-08 15:34 | NUR ---
1428: GOT A TELEPHONE ORDER FROM DR. FRANCISCO TO EXTUBATE THE PT.
--- NOTE | 2017-03-08 15:37 | NUR ---
PT EXTUBATED AT AROUND 1448. RN AT BEDSIDE. PT WAS IMMEDIATELY PUT ON 4L NC WITH BUBBLE HUMUDIFIER, PT'S SPO2 IS 95%. WILL CONT TO MONITOR.
--- NOTE | 2017-03-08 16:30 | NUR ---
RT AT BEDSIDE GIVING BREATHING TREATMENT, O2 SAT 95%-97% AFTER BREATHING TREATMENT, NO RESPIRATORY DISTRESS NOTED, WILL CONTINUE TO MONITOR.
--- NOTE | 2017-03-08 16:45 | NUR ---
AT BEDSIDE, UPDATES GIVEN, WANTS PATIENT ON BIPAP WHEN PATIENT FALLS ASLEEP DUE TO SLEEP APNEA, WILL FOLLOW ORDERS AND WILL CONTINUE TO MONITOR.
--- NOTE | 2017-03-08 16:45 | NUR ---
AT BEDSIDE, UPD
--- NOTE | 2017-03-08 17:15 | NUR ---
IV TO LH/RH FLUSH BUT NO BLOOD RETURN, D/C IV TO LH/RH WITH CANNULA INTACT, WILL CONTINUE TO MONITOR.
--- NOTE | 2017-03-08 17:20 | NUR ---
AT BEDSIDE, UPDATES GIVEN, WILL CONTINUE TO MONITOR.
--- NOTE | 2017-03-08 18:18 | NUR ---
SWALLOW EVAULATION GIVEN AT BEDSIDE WITH VANILLA PUDDING TO GIVE MEDICATION XERALTO, PATIENT TOLERATED PUDDING ABLE TO SWALLOW WITHOUT DIFFICULTY, NO POCKETING AND NO COUGHING NOTED, WILL CONTINUE TO MONITOR.
--- NOTE | 2017-03-08 18:42 | NUR ---
AAOX4, NO DISTRESS NOTED, RESPIRATIONS EVEN AND SHALLOW O2 SAT 95% ON 2L O2 NC, DENIES PAIN, DENIES N/V, IV TO LIJ PATENT TO ALL THREE PORTS AND INFUSING NS AT 70ML/HR FREELY AND CARDIZEM AT 5MG/HR FREELY, GORMAN CATHEDER IN PLACE AND FLOWING TEA COLORED URINE FREELY BY GRAVITY, CALL LIGHT WITHIN REACH, BED TO LOWEST POSITION, SIDE RAILS UPX2, AND WILL ENDORSE TO NIGHT NURSE
--- NOTE | 2017-03-08 19:15 | NUR ---
REPORT RECEIVED BY CHADD ARGUELLO. ALL QUESTIONS AND CONCERNS ADDRESSED.
--- NOTE | 2017-03-08 23:35 | NUR ---
PT PLACED ON BIPAP FOR THE NIGHT TO SLEEP AT THIS TIME.
--- NOTE | 2017-03-09 00:02 | NUR ---
PT REMOVED BIPAP AT THIS TIME. PT WAS RESTING WELL, WOKE UP AND REMOVED MASK. PT PLACED ON 4 LPM O2 NC.
--- NOTE | 2017-03-09 01:20 | NUR ---
PT PLACED BACK ON BIPAP AT THIS TIME. WILL CONTINUE TO MONITOR.
--- NOTE | 2017-03-09 01:56 | NUR ---
PT REMOVED BIPAP, PT PLACED ON 4 LPM O2 VIA NC. WILL CONTINUE TO MONITOR.
[2017-03-09 03:13] VITALS: BP 130/80
[2017-03-09 05:34] LABS: PLATELET COUNT 242 x10^3mcL (130-400); RED CELL DISTRIBUTION WIDTH 15.8 % (11.5-14.5)
--- NOTE | 2017-03-09 05:40 | NUR ---
MADE AWARE OF RED CIRCULAR DISCOLORATIONS ON PT BACK, PER , PT HAS FROSTBITE ON BACK FROM PREVIOUS HYPOTHERMIA PROTOCOL. SEE CHART FOR PICTURES.
[2017-03-09 06:08] LABS: CALCIUM 8.3 mg/dL (8.5-10.1); CARBON DIOXIDE 23.1 mmol/L (21-32); CHLORIDE SERUM 109 mmol/L (98-107); CREATININE SERUM 1.9 mg/dL (0.6-1.0); GLUCOSE SERUM 338 mg/dL (74-106); MAGNESIUM 2.6 mg/dL (1.8-2.4); PHOSPHOROUS 4.5 mg/dL (2.5-4.9); POTASSIUM SERUM 3.8 mmol/L (3.5-5.1); SODIUM SERUM 145 mmol/L (136-145)
--- NOTE | 2017-03-09 07:00 | NUR ---
RECEIVED REPORT FROM NOC SHIFT RN JEB, ALL QUESTIONS AND CONCERNS ADDRESSED AT THIS TIME. WILL ASSUME ALL CARE.
[2017-03-09 07:15] VITALS: BP 163/100
--- NOTE | 2017-03-09 07:20 | NUR ---
PT IS A&O X 4, SPEECH IS CLEAR, EYES OPEN SPONTANOUSLY, PUPILS REACT TO LIGHT, PT FOLLOWS COMMANDS, AND DENIES HEADACHE. PT ON HAS LIJ INFUSING CARDIZEM 5 MG/HR, NS 70 ML/HR, CDI DRESSING. CVP 23. PT ON 4L NC, BUL EXP WHEEZES, BLL DIM, PT WITH NONPRODUCTIVE COUGH. PT USING ABD MUSCLES TO ASSIST WITH BREATHING BUT DENIES FEELING SOB, DIZZINESS AND CP. PT HAS HYPOACTIVE BOWEL SOUNDS X 4 QUADRANTS. PT REFUSING TO USE BEDPAN AND STATES SHE FEELS CONSTIPATED, WILL FOLLOW UP WITH PRN MEDICATION. PT HAS GORMAN CATH IN PLACE DRAINING TO GRAVITY BLOOD TINGED URINE. NO VAGINAL DISCHARGE OR LABIAL EDEMA NOTED AT THIS TIME. PT TO HAVE SWALLOW EVAL TODAY FOR DIET ORDER. 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 WILL CONTINUE TO MONITOR PT AT THIS TIME.
--- NOTE | 2017-03-09 07:40 | NUR ---
CARDIZEM TITRATED TO 10 MG/HR AT THIS TIME DUE TO HR 110-117. WILL CONTINUE TO MONITOR AT THIS TIME.
--- NOTE | 2017-03-09 08:00 | NUR ---
PT HAD LARGE BM VIA BEDPAN, SOFT AND BROWN. PT CLEANSED AND NEW LINEN PROVIDED. WILL CONTINUE TO MONITOR.
[2017-03-09 08:30] VITALS: BP 160/100
--- NOTE | 2017-03-09 08:45 | NUR ---
DR CROCKER, RESIDENTS AND INTERNS ROUNDING AT THIS TIME. UPDATES PROVIDED. NO NEW ORDERS RECEIVED.
--- NOTE | 2017-03-09 09:28 | NUR ---
MARIA E PIERCE AT BEDSIDE TO PLACE PT ON BIPAP PT IS SLEEPING. PT SATING WELL AT 97%. FI02 40%. WILL CONTINUE TO MONITOR AT THIS TIME.
--- NOTE | 2017-03-09 09:49 | NUR ---
PT HR 65-80 CONSISTENTLY. TITRATE CARDIZEM TO 5 MG/HR AT THIS TIME. WILL CONTINUE TO MONITOR.
[2017-03-09 10:52] LABS: BAND NEUTROPHIL 1 % (0-10); BASOPHIL 0 % (0-2); MONOCYTE 3 % (0-7); PLATELET MORPHOLOGY PLATELETS NORMAL; SEGMENTED NEUTROPHILS 90 % (37-75)
[2017-03-09 10:53] LABS: rbc morphology (normal/abnorm) ABNORMAL (NORMAL)
--- NOTE | 2017-03-09 10:55 | NUR ---
AT BEDSIDE. UPDATES PROVIDED. NO NEW ORDERS TO BE PLACED AT THIS TIME.
--- NOTE | 2017-03-09 11:02 | NUR ---
PT HR IN 70'S, PER TURN OFF CARDIZEM DRIP. WILL CONTINUE TO MONITOR PT.
--- NOTE | 2017-03-09 11:28 | NUR ---
1. Recommend D/C current TF regimen order. 2. Note pending Swallow Evaluation per Speech Therapist. 3. Consider diet texture restriction per ADVERTISING INTERN if/when medically appropriate. 4. Consider CCHO-60 gm, 2 gm Na diet restriction when able to advance to PO diet. 5. Adjust insulin regimen. BG >200 mg/dL.
--- NOTE | 2017-03-09 11:28 | NUR ---
Follow Up Nutrition Assessment Dx: Cardiac Arrest, Heart Failure PMHx: A fib on xarelto, DM, HTN with hypertensive heart disease, obstructive sleep apnea, HLD, hypothyroidism, CHF, aortic sclerosis, mild mitral regurgitation, trace tricuspid regurgitation, morbid obesity, osteoarthritis Labs: BG 338 H, BUN 59 H, Cr 1.9 H, Magnesium 2.6 H, WBC 12.9 H, H/H 10.1/32 L; (03/06) ALB 2.7 L; (03/04) Troponin 1.494 H,A1C 6.5 H, Lactic Acid 3.9 H Meds: Colace, D50, ferrous sulfate, humulin R, imdur, Lasix, levemir, protonix, NS IV, solu-medrol, NS IV, solu-medrol, synthroid, theragran, vitamin C 500 mg daily, zofran Current Nutrition Support: TF Diabetisource AC at 40 ml/hr, increase to goal 60 ml/hr - Not infusing, no bag, only pump TF Intakes: (03/07) 430 ml (31% kcal goal); (03/08) 365 ml (27% kcal goal) I/O: 1962/1650 (+312 ml) Weight: (03/06) 244 lb, 111 kg; (03/09) 250 lb, 113 kg. BMI: 42.2 kg/m2 (Obesity Class III) Weight Change: +6 lb - Likely due to fluid shifts Skin: Kenny bite for back, redness abd folds. Sam 13. Edema: None GI: Abd soft, obese, non-tender. Hypoactive bowel sounds. Last BM x1 03/09. Large soft BM per RN. Problem with: N: None. V: None. D: None. C: None. Per doctor's progress note 03/09, no acute events overnight, s/p extubation, continues on Cardizem drip due to tachycardiac, swallow evaluation and PT evaluation pending; Pt with cardiopulmonary arrest possibly secondary to heart failure vs acute MD, acute hypoxemic hypercapnic respiratory failure secondary to aspiration pneumonia, PE r/o. Pt was seen sound asleep, on Bipap, no TF seen infusing at this time. Spoke with RN, reported pt did not get much sleep yesterday night, on Bipap PRN for sleeping issues, Botswanan-speaking and pending swallow evaluation. RN reported that given pt crushed medications with applesauce, tolerated ice chips, juice, no signs of coughing or intolerance. RN also stated that pt's BG levels have been high due to being on steroids. RD paged Dr. Ruiz regarding recommendations. Estimated Nutritional Needs Based IBW 120 lb, [address] adjusted estimated needs due to pt is s/p extubation Energy: 7266-2417 kcal/day (25-30 kcal/kg IBW for Geriatric Maintenance) Protein: 55-66 gm/day (1-1.2 gm/kg for Geriatric Maintenance) Fluids: <1.5 L/day (Heart Failure) or per doctor Nutrition Diagnosis Inadequate protein-energy intakes related to pending procedure as evidenced by TF held at this time, current NPO status x1 day due to refuse laborer procedure -- *Ongoing, note pending Swallow Evaluation, TF held Intervention 1. Recommend D/C current TF regimen order. 2. Note pending Swallow Evaluation per Speech Therapist. 3. Consider diet texture restriction per INSTRUMENT SETTER if/when medically appropriate. 4. Consider CCHO-60 gm, 2 gm Na diet restriction when able to advance to PO diet. 5. Adjust insulin regimen. BG >200 mg/dL. Monitor/Evaluate Goal: NPO <5-7 days; INSTRUMENT SETTER recommendations; BG <200 mg/dL Monitor: NPO status, INSTRUMENT SETTER recommendations, advancement to PO diet if able, labs (BG), skin integrity, GI function, weights F/U in 2-3 days as HIGH risk (03/11-03/12)
--- NOTE | 2017-03-09 11:30 | NUR ---
PT AWAKE AND REQUESTING TO TAKE OFF BIPAP. EDUCATED PT THAT SHE NEEDS BIPAP WHILE SHE SLEEPS. PT VERBALIZES SHE WILL STAY AWAKE. PT PLACED ON 4L NC AT THIS TIME SATING WELL AT 97%.
[2017-03-09 11:45] VITALS: BP 156/89
--- NOTE | 2017-03-09 13:38 | NUR ---
SPEECH THERAPY AT BEDSIDE FOR SWALLOW EVAL. WILL AWAIT RESULTS.
--- NOTE | 2017-03-09 13:58 | NUR ---
PER SPEECH THERAPIST PT IS OK TO TOLERATE REGULAR FOODS. WILL NOTIFY FOR POSSIBLE CCHO DIET. WILL CONTINUE TO MONITOR AT THIS TIME.
--- NOTE | 2017-03-09 14:12 | NUR ---
DIRECTOR LIFE INSURANCE note (bedside swallow evaluation completed) [id number]. Bedside swallow evaluation completed, please see report for details. DIRECTOR LIFE INSURANCE provided pt with education regarding purpose of evaluation and rationale for recommendations. Pt verbalized agreement with recommendations at this time. Recommend: 1) regular textures 2) thin liquids 3) no further DIRECTOR LIFE INSURANCE intervention indicated at this time. Physician may reorder if further concerns arise, as appropriate. G-codes: [id number] [facility] NOMS level 7. PVE for d/w RN (Dena) prior to and following swallow evaluation completion.
--- NOTE | 2017-03-09 14:15 | NUR ---
AT BEDSIDE, UPDATES PROVIDED. NO NEW ORDERS AT THIS TIME.
--- NOTE | 2017-03-09 14:30 | NUR ---
PHYSICAL THERAPY AT BEDSIDE. PT NOW SITTING IN WHEELCHAIR AT BEDSIDE. PT WILL SIT IN CHAIR FOR 30 MINUTES TOLERATED. WILL CONTINUE TO MONITOR AT THIS TIME.
--- NOTE | 2017-03-09 15:42 | NUR ---
PER JOLANTA DE SOUZA, PASSWORD FOR PATIENT INFORMATION, PASSWORD IS ZEE. WILL NOTIFY SOLAR BUSINESS DEVELOPER AND STAPLER MACHINE STAFF FOR PRIVACY PROTECTION.
[2017-03-09 15:43] VITALS: BP 154/93
--- NOTE | 2017-03-09 16:25 | NUR ---
P.T. NOTES/INITIAL EVAL [phone] Pt WAS ADMITTED DUE TO CARDIAC ARREST, AFIB; 03/04/17 CT HEAD:(-); CT ANGIO-PULMO:MULT (B)ANTERIOR RIBS FX; US LE:NO DVT; 03/06/17 CARDIAC CATH; INTUBATED, EXTUBATED; Pt LIVES W/ DAUGHTER IN MOBILE HOME, HAS 5 STEPS TO FRONT ENTRY, AMBULATORY WITHOUT ASST DEVICE; ABLE TO DRIVE; RECENTLY IN SNF PER CHART; HAS FWW, SPC. S:Pt WAS SEEN AWAKE & ALERT IN BED, SPEAKS YORUBA, ABLE TO FOLLOW SIMPLE COMMANDS W/ TACTILE & GESTURE CUES, CYRACOM PHONE AVAILABLE, NO C/O PAIN OR DIZZINESS AT THIS TIME; ORIENTED TO SELF & PLACE, FORGETFUL AT TIMES; AGREEABLE & COOPERATIVE W/ P.T.; CLEARED W/ NURSE FOR P.T. O:BED MOBILITY: MAX ASSIST+2 PERSONS IN SUPINE TO SIT TRANSFERS: MAX ASSIST+2 PERSONS IN SIT TO STAND W/ FWW GAIT: MAX ASSIST+2 PERSONS W/ FWW X 2 FT, UNABLE TO AMBU FARTHER DUE TO WEAKNESS, FATIGUE A:Pt DEMO GOOD RESPONSE TO P.T. SESSION; FALL RISK, OBESE; WADDLING GAIT, STOOPED POSTURE; Pt EDUC ON SAFE GAIT, HEP, USE OF CALL LIGHT FOR NURSE ASSIST, BREATHING TECH, NEEDS REINFORCEMENT, FAIR FOLLOW THRU; YV=087/99, 158/76; HR=94, 97; O2 SAT 4LPM W/ ACT=91% P:CONT PT ONCE DAILY 6X/WK X 1 WK; POC & DX DISCUSSED W/ SIMPLEX PRINTER INSTALLER; WILL BENEFIT W/ P.T. AFTER ACUTE STAY PRIOR TO RETURNING HOME W/ DAUGHTER. EVAL38,2PA GCODES:[id number] FUNC REACH SCORE:16 inches 1831-1813 Pt AGREEABLE W/ P.T.; REQ MAX ASSIST+2 PERSONS IN BED TO W/C TRANSFERS, WAS GIVEN THERA EXER UE/LE NILAY IN SITTING; Pt EDUC ON HAND PLACEMENT FOR SAFE TRANSFERS; NURSE AWARE; CALL CROUCH, TABLE IN REACH; O2 IN PLACE; HAD BM, NURSE AWARE FOR PERINEAL CARE; CONT PT EX8,TA15,2PA [id number] Pt WANTS TO USE BSC PER NURSE STAFF, REFUSES BEDPAN AT THIS TIME DUE TO Pt FEELS EMBARASSED & WANTS TO USE TOILET; REQ MAX ASSIST+2 PERSON IN BSC TRANSFERS W/ FWW; SAT UP IN BSC FOR A WHILE; DID BM; ASSISTED TO BED SAFELY; HOB ELEVATED, 4 SIDERAILS UP, CALL CROUCH, TABLE IN REACH; APPRE- CIATIVE; NURSE AWARE FOR PERINEAL CARE; O2 IN PLACE; CONT PT TA23,2PA,PVE(TOILETTING,SET UP)
--- NOTE | 2017-03-09 17:11 | NUR ---
REPORT GIVEN TO [facility] CHADD COLBERT, ALL QUESTIONS AND CONCERNS ADDRESSED AT THIS TIME. WILL ENDORSE ALL CARE UPON ARRIVAL TO UNIT. PT TO GO TO ROOM 242 B.
--- NOTE | 2017-03-09 19:09 | NUR ---
RECEIVED PT TRANSFER FR.ICU.REPORT GIVEN BY CHADD OLIVEIRA.AAO X4.VIETNAMESE MOSTLY.FAMILY AT BEDSIDE.KEPT PT WARM AND COMFORTABLE.ENDORSED TO CHADD AMOR.
--- NOTE | 2017-03-09 19:14 | NUR ---
PT TRANSFERRED TO [facility] FLOOR AT THIS TIME WITH TELE BOX NUMBER [phone]. NURSE SAYRA AT BEDSIDE AND VITALS DONE AT THIS TIME. NO INCIDENT OCCURED AT THIS TIME.
--- NOTE | 2017-03-09 20:00 | NUR ---
SHIFT REASSESSMENT DONE.PATIENT WAS JUST RECEIVED FROM ICU.ALERT AND ORIENTED,MAINLY FINNISH,NEEDS ANTICIPATED,FAMILY AT BEDSIDE,VERY SUPPORTIVE OF CARE.REPORT SHE IS ON C PAP AT [facility].BEDPAN USING IT ASSIST ATTIME OF TRANSFER IN THE ROOM,HAS GORMAN CAT5H.NS AT 70 CC/ HOUR.L INTENAL JUGULAR,3 LUMEN PATENT AND INTACT.HAS LANDERS BITE ON HE BACK,REDNESS ON ABD FOLDS,PATIENT IS GROSSLY OBESE.HAS TRACE EDEMA LOWER EXT,ON XARELTO.CALL LIGHT IN REACH.
[2017-03-09 20:43] VITALS: Ht 162.6 cm; Wt 113.8 kg
--- NOTE | 2017-03-09 21:15 | NUR ---
BIPAP AT NOC BUT CLAUSTROPHOBIC,WANTING MEDS TO RELAX HER.ORDERED,NOT VERIFIED YET.
--- NOTE | 2017-03-09 21:37 | NUR ---
VISTARIL GIVEN AT THIS TIME,REMINDED SHE HAS TO WEAR HER BIPAP/SAYS NO,CLAUSTROPHOBIC.
--- NOTE | 2017-03-09 21:56 | NUR ---
PATIENT SAYS SHE HAS PAIN ON HER BACK,HAS BROKEN RIB/ RESULTING FROM CPR.
[2017-03-09 22:00] VITALS: BP 131/81
--- NOTE | 2017-03-09 22:02 | NUR ---
DR HAIR MADE AWARE PATIENT NEED PAIN MED,ALL SHE HAS IS TYLENOL.
--- NOTE | 2017-03-09 22:02 | NUR ---
CHARGE NURSE AWARE THAT THIS PATIENT IS CLAUSTROPHOBIC.ALSO NEED PAIN MED STRONGER THAN TYLENOL.
--- NOTE | 2017-03-09 22:21 | NUR ---
PER DR HAIR NO OPIATES FOR THIS PATIENT PER DR FRANCISCO.CHARGE NURSE AWARE.
--- NOTE | 2017-03-10 00:57 | NUR ---
PATIENT HAD BM,KEEP CLEAN AND DRY PER BALLISTICS EXPERT,REMAINS A TOTAL CARE.ATB SCHEDULED.PATIENT HAS GORMAN CATH RED/PINK TINGED RECEIVED FROM ICU.
[2017-03-10 06:11] LABS: BASOPHIL % 0.1 % (0-2); PLATELET COUNT 210 x10^3mcL (130-400)
[2017-03-10 06:14] VITALS: BP 123/84
--- NOTE | 2017-03-10 06:18 | NUR ---
PATIENT DID NOT WEAR BIPAP AT ALL,CLAUSTROPHOBIC,THOUGHT THAT MAYBE SHE WILL WEAR IT AFTER VISTARIL GIVEN.
[2017-03-10 06:24] LABS: RED CELL DISTRIBUTION WIDTH 16.1 % (11.5-14.5)
[2017-03-10 06:29] LABS: CALCIUM 8.3 mg/dL (8.5-10.1); CHLORIDE SERUM 110 mmol/L (98-107); CREATININE SERUM 1.5 mg/dL (0.6-1.0); GLUCOSE SERUM 229 mg/dL (74-106); MAGNESIUM 2.4 mg/dL (1.8-2.4); POTASSIUM SERUM 3.7 mmol/L (3.5-5.1); SODIUM SERUM 144 mmol/L (136-145)
--- NOTE | 2017-03-10 06:53 | NUR ---
PARTIAL AM CARE AT THIS TIME,REMAINS A TOTAL CARE.GORMAN CARE DONE.PATIENT O2 AT 4 LITERS.WILL ENDORSE T6O INCOMING SHIFT.
--- NOTE | 2017-03-10 07:15 | NUR ---
AAO X4.KYRGYZ MOSTLY.C/O CHEST PAIN AT 5/10 PAIN SCALE.EXPLAINED TO PT DUE TO CHEST COMPRESSION WHEN SHE HAD CARDIAC ARREST.LUNG SOUND DIM ON THE BASES.ON 4 L O2. AFIB ON THE MONITOR.MM=360.IVF NS GOING AT 70 ML/HR INFUSINF WELL.BUE WITH +1 EDEMA.GORMAN DRAINING TO GRAVITY TRIMBLE RED IN COLOR.BLE WITH TRACE EDEMA.ABD'L FOLDS SLIGHTLY RED.NOTED LANDERS BITE ON THE BACK.FREQUENT REPOSITIONING IMPLEMENTED.CALL LIGHT WITHIN REACH.WILL CONTINUE TO MONITOR PT.
--- NOTE | 2017-03-10 08:15 | NUR ---
AND MEDICINE TEAM AT BEDSIDE.INFORMED PT ABOUT THE PLAN OF CARE.ALSO EXPLAINED TO PT THAT CHEST PAIN IS DUE TO THE CHEST COMPRESSION THAT WAS DONE TO HER WHEN SHE HAD A CARDIAC ARREST IN ER.PT VERBALIZES UNDERSTANDING.
[2017-03-10 09:32] VITALS: BP 110/56
--- NOTE | 2017-03-10 14:07 | NUR ---
PT NOTES TIME [id number] S: CLEARED BY RN FOR P.T. TX. PATIENT IS AWAKE & ALERT IN A SEMI ENGEL POSITION IN BED. AGREEABLE TO P.T. TX. C/O CHEST PAIN 03/25. RN IS AWARE. O: VS AT REST BP 154/82, SPO2 ON 4LPM 98%, HR FLUCTUATING BETWEEN 100-145 BPM. BED MOBILITY: SUPINE<>SIT W/ MAX ASSIST OF 2. PATIENT REQUIRES VC FOR STEP BY STEP SEQUENCE W/ BED MOBILITY. INSTRUCTED TO USE SIDERAILS TO ASSIST W/ BED MOBILITY. PATIENT GIVEN VC FOR PROPER POSTURAL ALIGNMENT IN SITTING. TENDS TO RETROLEAN AT TIMES, BUT ABLE TO CORRECT SITTING BALANCE W/ VC GIVEN. PATIENT ABLE TO NILAY. SITTING UP AT EOB APPROX. 10 MINS. EDUCATED PATIENT ON THE RISK/COMPLICATIONS OF IMMOBILIZATION & SAFETY FOR FALL PREVENTION W/ G UNDERSTANDING. COOPERATIVE & APPRECIATIVE OF CARE. TRANSFER: N/T PATIENT SOILED & HAD BM. COMPUTATOR WAS MADE AWARE PATIENT REQUIRED PERINEAL CARE. THER EX IN SITTING KNEE FLEX/EXT, ANKLE DF/PF, ELBOW FLEX/EXT NILAY. PATIENT IS SAFELY & COMFORTABLY IN A SEMI ENGEL POSITION IN BED W/ CALL BUTTON & TABLE IN REACH. VS AFTER TX BP 152/92, SPO2 @ 4LPM 98%, HR 120 BPM. RN NOTIFIED. P: DISCUSSED W/ PRIMARY PHYSICAL THERAPIST TA15',TE8',2PA(2)
--- NOTE | 2017-03-10 14:22 | NUR ---
PT WENT DOWN VIA HOSPITAL BED FOR STRESS TEST.
[2017-03-10 15:17] VITALS: BP 141/77
[2017-03-10 17:55] VITALS: BP 147/75
--- NOTE | 2017-03-10 19:36 | NUR ---
SHIFT REASSESSMENT DONE.PATIENT ALERT,PAL[place] MAINLY,NEEDS ANTICIPATED.FAMILY AT BEDSIDE,VISITING,SUPPORTIVE OF CARE.O2 AT 4 LITEES,RT TX SCHEDULED,PATIENT SOB ON EXERTIN,GROSSLY OBESE.TOTAL CARE,REPORT,PHYSICAL THERAPY TODAY.NS AT 70 CC/ HOUR LIJ,TRIPLE LUMEN.TELE 23 AFIB,ON XARELTO.PATIENT HAD BM SOFT,TODAY.KEEP CLEAN AND DRY,HAS REDNESS ABD FOLDS,ALSO HAS LANDERS BITES ON HER BACK,NO OPIATES FOR PAIN,HAD TORADOL TODAY.COMFORTABLE AT THIS TIME.CALL LITE IN REACH.
[2017-03-10 20:41] VITALS: BP 144/77
--- NOTE | 2017-03-10 21:00 | NUR ---
PM MEDS GIVEN,SWALLOWS WELL.PATIENT ABLE TO MAKE NEEDS KNOWN TO STAFF,WANTING TO SIT UP AT BEDSIDE,FALL PRECAUTION.STILL HAS GORMAN WITH PINK TINGED URINE.GOOD PERICARE GIVEN,HAD BM EARLIER.KEEP CLEAN,GOOD SKIN CARE PROVIDED.
--- NOTE | 2017-03-11 01:00 | NUR ---
REPOSITIONED,HAD SMALL BM.GOOD SKIN CARE.
--- NOTE | 2017-03-11 04:00 | NUR ---
CHECKED AT INTERVALS FOR NEEDS AND SAFETY.
[2017-03-11 05:37] VITALS: BP 135/72
--- NOTE | 2017-03-11 06:32 | NUR ---
I AND O MEASURED.AM CARE.WATER OFFERED AT INTERVALS,DRINKING WELL.NS AT 70 CC/HOUR L IJ,TRIPLE LUMEN.WILL ENDORSE TO INCOMING SHIFT.
--- NOTE | 2017-03-11 07:20 | NUR ---
REPORT GIVEN TO INCOMING SHIFT.
--- NOTE | 2017-03-11 07:30 | NUR ---
RECEIVED Pt. [id number], RESPIRATIONS EVEN AND UNLABORED O2 4L/MIN NC. DENIES PAIN/DISCOMFORT. NO DISTRESS NOTED. CENTRAL LINE AT LEFT IJ DSG CDI. TELE IN PLACE HR 112, DENIES CHEST PAIN/PRESSURE. GROMAN CATHETER IN PLACE, YELLOW URINE NOTED. BED LOW/LOCKED. CALL LIGHT IN REACH.
[2017-03-11 07:52] LABS: BASOPHIL % 0.5 % (0-2); PLATELET COUNT 204 x10^3mcL (130-400); RED CELL DISTRIBUTION WIDTH 15.7 % (11.5-14.5)
--- NOTE | 2017-03-11 07:58 | NUR ---
MADE ROUNDS WITH DR. CROCKER AND MEDICINE TEAM, Pt. TO CONTINUE IV ANTIBIOTICS AND AGREED WITH PLAM OF CARE.
[2017-03-11 08:06] LABS: CALCIUM 8.1 mg/dL (8.5-10.1); CARBON DIOXIDE 22.7 mmol/L (21-32); CHLORIDE SERUM 110 mmol/L (98-107); CREATININE SERUM 1.5 mg/dL (0.6-1.0); GLUCOSE SERUM 203 mg/dL (74-106); MAGNESIUM 2.3 mg/dL (1.8-2.4); PHOSPHOROUS 4.3 mg/dL (2.5-4.9); POTASSIUM SERUM 4.1 mmol/L (3.5-5.1); SODIUM SERUM 143 mmol/L (136-145)
[2017-03-11 09:44] VITALS: BP 148/80
--- NOTE | 2017-03-11 12:31 | NUR ---
Follow-up Nutrition Assessment Dx: Cardiac Arrest, Heart Failure PMHx: A fib on xarelto, DM, HTN with hypertensive heart disease, obstructive sleep apnea, HLD, hypothyroidism, CHF, aortic sclerosis, mild mitral regurgitation, trace tricuspid regurgitation, morbid obesity, osteoarthritis Labs: BG 200 H, BUN 48 H, Cr 1.5 H, WBC 9.9, H/H 9.9/31 L; (03/06) ALB 2.7 L; (03/04) Troponin 1.494 H,A1C 6.5 H, Lactic Acid 3.9 H Meds: Colace, ferrous sulfate, humulin R, levemir, protonix, NS IV, solu-medrol, synthroid, theragran, vitamin C 500 mg daily Current Diet Order: CCHO (03/09) PO Intakes: 30% (03/10), 100% (03/11) Weight: (03/06) 244 lb, 111 kg; (03/09) 250 lb, 113 kg-no new wt. BMI: 42.2 kg/m2 (Obesity Class III) Skin: intact. Sam 16. Edema: trace to BLE + BUE GI: Abd soft, obese, non-tender. Hypoactive bowel sounds. Last BM: 2 (03/11)- diarrhea. Problem with: N: None. V: None. D: Yes d/t laxative given. C: None. Per doctor's progress note 03/11-Stress test was unremarkable, no evidence of ischemia or infarction. Nuclear Medicine MUGA calculated EF: w/ stress is 37%. PT: cont PT once daily 6x/wk x 1 wk; will benefit w/ PT after acute stay prior to returning home w/ daughter. INFORMATION RESOURCES DIRECTOR note 03/09- Regular textures w/ thin liquids. Pt seen at bedside w/ no family present, pt requested interview in Tongan, the RD agreed and translated, reports feeling much better but unable to get out of bed, C/O diarrhea that was caused from laxative, reports good intake today, declined further diet review at this time. Estimated Nutritional Needs Based IBW 120 lb, 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 CCHO-60 gm, 2 gm Na diet. Make food preferences known. 2. Adjust insulin regimen. BG >/=200 mg/dL. Monitor/Evaluate Goal: PO intakes to meet at least 75% of needs w/ tolerance Monitor: PO intakes/tolerance, labs (BG), skin integrity, GI function, weights F/U in 3-5 days as MODERATE risk (03/14-03/16)
--- NOTE | 2017-03-11 12:31 | NUR ---
1. CCHO-60 gm, 2 gm Na diet. Make food preferences known. 2. Adjust insulin regimen. BG >/=200 mg/dL.
[2017-03-11 12:41] VITALS: BP 144/95
--- NOTE | 2017-03-11 13:13 | NUR ---
Pt. C/O PAIN DURING RESPIRATIONS 6/10 SCALE, TORALDOL IVP GIVEN WILL CONTINUE TO MONITOR.
--- NOTE | 2017-03-11 13:29 | NUR ---
P.T. NOTES Pt CLEARED PER RN FOR PT TREATMENT. S: Pt PRESENTS AWAKE, ALERT, AGREEABLE FOR PT. TALKATIVE. C/O 5/10 CHEST PAIN AND GENERAL WEAKNESS. RN NOTIFIED AND IN ROOM. O: VS ASSESSMENT: BP 158/99, SP02 98%, HR 114BPM. RECHECKED BP:160/104 MMHG. PRIMARY RN NOTIFIED. BED MOBILITY: SUP<>SIT: MAX ASSIST OF 2 W/ VC/TC FOR TASK INITIATION AND SEQUENCING. TRANSFERS: SIT<>STAND:MOD/MAX A OF 2 W/FWW USE AND VC FOR HAND PLACEMENTS. GT: MAX ASSIST FOR 2 SMALL LATERAL SIDESTEPS TOWARDS HOB USING FWW. THERA EX: SUPINE:GLUT AND QUAD SETS, ANKLE PUMPS. SEATED LE THERA EX FOR BLE TO TOLERANCE. Pt SAFELY ASSISTED BTB WITH ALL LINES INTACT, CALL LIGHT AND TRAY IN REACH, HOB ELEVATED. Pt COOPERATIVE AND APPRECIATIVE OF CARE. A: Pt TOLERATED PT WELL. ABLE TO INCREASE PARTICIPATION IN THERAPY TODAY AND PROGRESS W/TRANSFER AND GT. DEMO'S LIMITED ENDURANCE AND FATIGUES QUICKLY. ANTERIOR FLEXED POSTURE. MANUAL ASSIST W/FWW USE FOR SIDESTEPPING ALONG BEDSIDE. Pt DEMO'S FAIR+ SITTING BALANCE. FAIR STANDING BALANCE AND F- GAIT BALANCE. P: PROGRESS TOLERATED TOWARDS SET REHAB GOALS. EX 13' GT 10' TA 17' (3)2PA FOR PHYSICAL ASSIST, SET UP, SAFETY [phone]
--- NOTE | 2017-03-11 15:00 | NUR ---
Pt. DENIES PAIN/DISCOMFORT AT THIS TIME POST TORADOL, FAMILY AT BEDSIDE.
[2017-03-11 16:35] VITALS: BP 141/88
--- NOTE | 2017-03-11 18:19 | NUR ---
Pt. AAOX4. RESPIRATIONS EVEN AND UNLABORED O2 3L/MIN NC, DENIES SOB/DYSPNEA. C/O RIB PAIN DURING ACTIVITY, DENIES PAIN AT THIS TIME. NO DISTRESS NOTED. IVF NS RUNNING TO CENTRAL LINE LEFT IJ PATENT AND INTACT DSG CDI. TELE IN PLACE. GORMAN CATHETER YELLOW URINE NOTED. RED CIRCULAR DISCOLORATIONS STILL NOTED IN Pt. BACK MARYURI NO DRAINAGE/SWELLING NOTED. BED LOW/LOCKED. CALL LIGHT IN REACH. FAMILY AT BEDSIDE.
--- NOTE | 2017-03-11 20:05 | NUR ---
RECEIVED PT FROM AM NURSE IN NO ACUTE DISTRESS. LAYING IN BED COMFORTABLY. A/OX4. TELE #23 AFIB HR 94. ON XARELTO PO. PULSES [place] AND EVEN. TRACE EDEMA TO BLE AND BUE. BREATHING EVEN AND UNLABORED ON 3L NC AT THIS TIME. DENIES SOB. BS ACTIVE X4 QUADRANTS. LOOSE STOOL REPORTED. BSC IN PLACE. GORMAN IN PLACE. DRAINING TO GRAVITY. YELLOW URINE. GENERALIZED WEAKNESS NOTED. RED CIRCULAR DISCOLORATION NOTED TO BACK. REDNESS TO ABD FOLD. DENIES PAIN AT THIS TIME. LIJ INTACT. PORTS PATENT. BED IN LOWEST POSITION. FAMILY AT BEDSIDE. CALL LIGHT INSTRUCTIONS REINFORCED. WILL CONT TO MONITOR.
[2017-03-11 20:08] VITALS: BP 141/88
[2017-03-11 21:25] VITALS: BP 171/75
--- NOTE | 2017-03-11 22:30 | NUR ---
PT HAD 1 SMALL SOFT BM. CLEANED AND CHANGED PT IN BED. WILL CONT TO MONITOR.
--- NOTE | 2017-03-12 04:01 | NUR ---
LAYING IN BED WITH NO ACUTE DISTRESS. BREATHING EVEN AND UNLABORED. DENIES ANY PAIN. WILL CONT TO MONITOR.
[2017-03-12 05:54] VITALS: BP 146/76
--- NOTE | 2017-03-12 06:43 | NUR ---
REMAINS IN STABLE CONDITION THROUGHOUT SHIFT. ALL NEEDS MET AND ATTENDED TO. WILL CONT TO MONITOR AND ENDORSE ALL CARE TO ONCOMING NURSE.
--- NOTE | 2017-03-12 08:10 | NUR ---
RECEIVED PT IN BED A/A/OX4 DENIES TAVERAS. RESP EVEN AND UNLABORED WITH DIMINISHED BS BILAT ON O2 AT 3L/MIN VIA NC WITH RT PROTOCOL. AFIB ON TELE HR 95-105 BPM. DENIES ANY CP/PRESSURE. REPORTS SOME CHEST AREA SORENESS/ACHINESS AT TIMES. NOTED WITH +1 EDEMA TO BUE/BLE. LIJ IN PLACE WITH ALL PORTS PATTENT IVF NS AT 70ML/HR. ABD SOFT, OBESE NONTENDER WITH ACTIVE BS X4. DENIES ANY N/V AT THIS TIME. REPORTS SOME LOOSE STOOLS YESTERDAY, PER REPORT HAD ONE BM, LAST NIGHT. GORMAN CATH TO GRAVITY WITH YELLOW URINE. CARE PROVIDED QSHIFT. GEN WEAKNESS, UNABLE TO AMBULATE WITHOUT ASSISTANCE AT THIS TIME. UP WITH PT. CALL LIGHT IN REACH NEEDS ATTENDED TO.
[2017-03-12 09:25] VITALS: BP 152/83
[2017-03-12 13:45] VITALS: BP 149/77
--- NOTE | 2017-03-12 14:20 | NUR ---
PT PROVIDED WITH CENTRAL LINE CARE PER PROTOCOL. PT TOLERATED WELL. PT REPORTED SOME DISCOMFORT TO CHEST AREA. MEDICATED WITH TODAROL IVP ORDERED. WILL CONT TO MONITOR.
--- NOTE | 2017-03-12 14:53 | NUR ---
PT NOTES TIME [id number] S: CLEARED BY RN FOR P.T. TX. PATIENT IS AWAKE & ALERT IN A SEMI ENGEL POSITION IN BED. AGREEABLE TO P.T. T.X. C/O L KNEE PAIN & L CHEST PAIN 03/25. RN IS AWARE. O: VS AT REST BP 131/72, HR 74 BPM, SPO2 ON 3LPM 97% BED MOBILITY: SUPINE<>SIT MAX ASSIST OF 2. VC GIVEN TO USE SIDERAIL TO ASSIST W/ BED MOBILITY. IN SITTING PATIENT INITIALLY RETROLEANS, BUT IS ABLE TO CORRECT SITTING BALANCE W/ TC/VC GIVEN. TRANSFER: SIT<>STAND W/ FWW MOD ASSIST OF 2. VC GIVEN W/ PROPER HANDPLACEMENT FOR SIT<>STAND. IN STANDING PATIENT HAS P POSTURAL AWARENESS & REQUIRES VC TO CORRECT POSTURE. GAIT: 5FT LATERAL STEPS W/ FWW MOD ASSIST OF 2. PATIENT HAS A WBOS W/ A WADDLING GAIT. DECREASE GAIT VELOCITY. VC GIVEN FOR PROPER GAIT PATTERN W/ FWW. PATIENT GAIT DISTANCE LIMITED D/T DECREASE ENDURANCE, WEAKNESS, & FATIGUE. EDUCATED PATIENT ON SAFETY FOR FALL PREVENTION W/ G UNDERSTANDING. COOPERATIVE & APPRECIATIVE OF CARE. THER EX MARCHING IN PLACE X 10 REPS X 2 SETS W/ A SEATED REST PERIOD & ANKLE DF/PF. PATIENT IS SAFELY & COMFORTABLY IN A SEMI ENGEL POSITION IN BED W/ CALL BUTTON & TABLE IN REACH. DECLINED TO SIT UP IN A CHAIR DESPITE EDUCATION GIVEN. RN NOTIFIED.
--- NOTE | 2017-03-12 16:15 | NUR ---
PT RESTING AT THIS TIME. DENIES ANY DISCOMFORT. CALL LIGHT IN REACH NEEDS ATTENDED TO.
--- NOTE | 2017-03-12 17:00 | NUR ---
PT REFUSED K-PAD STATING SHE IS ALWAYS FEELING HOT AND WOULD NOT TOLERATE THE HEAT FROM IT. WILL CONT TO MONITOR.
[2017-03-12 18:00] VITALS: BP 145/91
--- NOTE | 2017-03-12 18:30 | NUR ---
PT ASSITED TO [facility]SC HAD LARGE SOFT STOOL. [PT TOLERATED ACTIVITY WELL. CALL LIGHT IN REACH NEEDS ATTENDED TO. DENIES ANY DISCOMFORT AT THIS TIME.
[2017-03-12 21:26] VITALS: BP 152/78
[2017-03-12 21:57] VITALS: BP 152/78
--- NOTE | 2017-03-12 23:26 | NUR ---
A & O x 4. MALTESE SPEAKING. SHOWING A-FIB ON TELE #23. LEFT ARM SHOWS +1 EDEMA, ELEVATED ON PILLOW. BILATERAL LOWER EXTREMITIES SHOW TRACE EDEMA, LEGS ELEVATED ON PILLOWS. LUNG SOUNDS DIMINISHED BILATERALLY AND CLEAR. DENIES SOB. ON NC AT 2L. BOWEL SOUNDS ACTIVE IN ALL QUADRANTS. GORMAN CATHETER PRESENT, DRAINING YELLOW URINE WITH SEDIMENT. NS RUNNING AT 70 ML/HR TO LEFT JUGULAR. RED PORT PATENT, BLUE PORT FLUSHING WITH SOME DIFFICULTY. REDNESS TO ABD FOLDS BUT SKIN INTACT. MULTIPLE BRUISING TO LEFT INNER THIGH. MULTIPLE RED CIRCULAR DISCOLORATION/SCRABBING ON BACK. DENIES PAIN AT THIS TIME. PT LAYING SUPINE WITH HOB ELEVATED 30 DEGREES. PERSONAL ITEMS WITHIN REACH, BED IN LOW POSITION, INSTRUCTED TO CALL FOR ASSISTANCE.
--- NOTE | 2017-03-13 00:34 | NUR ---
RESTING WITH EYES CLOSED. EASILY AWAKEN TO VERBAL STIMULI. COUGH PRESENT BUT DENIES SOB. DENIES PAIN. NO ACUTE DISTRESS NOTED. BED IN LOW POSITION, INSTRUCTED TO CALL FOR ASSISTANCE.
[2017-03-13 05:31] VITALS: BP 160/78
[2017-03-13 06:10] VITALS: BP 156/87
--- NOTE | 2017-03-13 06:14 | NUR ---
A & O X 4. DENIES SOB, DENIES PAIN. EDEMA TO LEFT LOWER EXTREMITY HAS IMPROVED. EDEMA TO LEFT HAND HAS INCREASED DURING SHIFT. ELEVATED ARM ON PILLOW AND EDUCATED PT ON IMPOPTANCE OF KEEPING IT ELEVATED TO REDUCE THE EDEMA. NO OTHER ACUTE CHANGES OCCURED DURING SHIFT. GORMAN CARE WAS PERFORMED, BED IN LOW POSITION, AND CALL LIGHT WITHIN REACH. WILL ENDORSE TO ONCOMING SHIFT.
[2017-03-13 06:28] LABS: CARBON DIOXIDE 26.4 mmol/L (21-32); CHLORIDE SERUM 111 mmol/L (98-107); CREATININE SERUM 1.3 mg/dL (0.6-1.0); GLUCOSE SERUM 142 mg/dL (74-106); SODIUM SERUM 144 mmol/L (136-145)
--- NOTE | 2017-03-13 07:40 | NUR ---
RECEIVED PT IN BED ALERT AND ORIENTED X4. TELE #23, AFIB 110. DENIES CHEST PAIN. REPORTS DISCOMFORT TO BRENDA RIB CAGE BUT STATES IT IS TOLERABLE. BREATHING EVEN AND UNLABORED ON O2 VIA NC AT 2L. NO SOB. LUNG SOUNDS CLEAR. DENIES ABD PAIN OR N/V/D. GORMAN CATHETER DRAINING TO FAISAL URINE WITH SEDIMENTS NOTED. GENERALIZED WEAKNESS. 1+ EDEMA NOTED TO LUE, TRACE EDEMA TO BLE. REDNESS NOTED TO ABD FOLDS AND RED DISCOLORATIONS NOTED TO BACK. CENTRAL LINE TO [facility] WITH [facility]. INSTRUCTED TO USE CALL LIGHT WHEN IN NEED OF ANY ASSISTANCE,
--- NOTE | 2017-03-13 10:03 | NUR ---
PT GOT UP WITH PT. SITTING IN RECLINER AT BEDSIDE. DENIES SOB OR DISCOMFORT.
[2017-03-13 10:47] VITALS: BP 158/82
--- NOTE | 2017-03-13 12:45 | NUR ---
PT NOTES TIME 0217-3194 S: CLEARED BY RN FOR P.T. TX. PATIENT IS AWAKE & ALERT IN A SEMI ENGEL POSITION IN BED. AGREEABLE TO P.T. TX. NO C/O PAIN OR DIZZINESS AT THIS TIME. O: VS AT REST BP 131/63, HR 100-112 BPM, SPO2 ON RA 92% BED MOBILITY: SUPINE>SIT W/ MAX ASSIST OF 2. PATIENT STILL GIVEN VC FOR SEQUENCE W/ BED MOBILITY & ABLE TO USE SIDERAILS FOR FACILITATING BED MOBILITY SKILLS. TRANSFER: SIT<>STAND W/ FWW MOD/MIN ASSIST OF 2. VC GIVEN W/ PROPER SEQUENCE FOR SIT<>STAND TRANSFERS. PATIENT DEMO'S DECREASE ASSISTANCE FOR SIT<>STAND TRANSFER. GAIT: 6FT W/ FWW MOD/MIN ASSIST OF 2. PATIENT HAS ANTALGIC GAIT. WBOS. SHORTENED STEP LENGTH. DECREASE FOOT CLEARANCE & INCREASE FORWARD TRUNK LEAN. VC GIVEN TO CORRECT POSTURAL ALIGNMENT, INCREASE HIP/KNEE FLEXION FOR IMPROVE FOOT CLEARANCE, & INCREASE STEP LENGTH. GAIT DISTANCE LIMITED D/T FATIGUE, PAIN ON L KNEE & CHEST, & DECREASE ENDURANCE. EDUCATED PATIENT ON SAFETY FOR FALL PREVENTION & DEEP BREATHING TECHNIQUES W/ G UNDERSTANDING. COOPERATIVE & APPRECIATIVE OF CARE. VS AFTER GAIT TRAINING BP 158/82, HR 93 BPM, SPO2 ON RA 98%. RN IS AWARE. THER EX IN SITTING ANKLE DF/PF, HAND/WRIST FLEX/EXT, KNEE FLEX/EXT X 1O REPS. PATIENT IS SAFELY & COMFORTABLY SITTING UP IN A RECLINER CHAIR. CALL BUTTON & TABLE IN REACH. RN NOTIFIED. P: DISCUSSED W/ PRIMARY PHYSICAL THERAPIST GT15',TA15',TE8',2PA(2) TIME 1805-9900 RETURNED TO PATIENT ROOM. PATIENT IS AWAKE & ALERT SITTING UP IN A RECLINER CHAIR. AGREEABLE TO RETURN BTB. SIT<>STAND W/ FWW MIN/MOD ASSIST OF 2. STAND PIVOT TRANSFER TO EOB W/ MIN/MOD ASSIST OF 2. SIT>SUPINE W/ MAX ASSIST OF 2. CLERK CASHIER "FERDIA" ASSISTED W/ TRANSFER & BED MOBILITY. PATIENT STILL REQUIRES VC FOR SEQUENCING W/ BED MOB & TRANSFER. PATIENT IS SAFELY & COMFORTABLY IN A SEMI ENGEL POSITION IN BED W/ CALL BUTTON & TABLE IN REACH. LEFT IN CARE OF CLERK CASHIER. RN NOTIFIED. TA10'
[2017-03-13 14:07] VITALS: BP 149/87
--- NOTE | 2017-03-13 18:08 | NUR ---
PT LYING IN BED, DENIES ANY PAIN OR DISCOMFORT AT THIS TIME. BREATHING EVEN AND UNLABORED ON RA, NO SOB. GORMAN CATHETER DRAINING WELL TO FAISAL URINE WITH SEDIMENTS. FAMILY AT BEDSIDE. ASSISTED PT TO GET UP TO BSC EARLIER, HAD BM. CALL LIGHT WITHIN REACH.
[2017-03-13 18:13] VITALS: BP 141/88
--- NOTE | 2017-03-13 20:29 | NUR ---
PT A/A/O X3 FAMILY AT BEDSIDE. DENIES DIZZINESS AND HEADACHE. BREATH SOUNDS CLEAR. BREATHING EVEN AND UNLABORED ON 2L NC. C/O CHEST PAIN RADIATING TO THE BACK. GAVE PT TORADOL IVP. PT TOLERATED IT WELL. NO V/O N/V AND ABD PAIN THUS FAR. PITTING EDEMA NOTED ON THE LUE AND BLE. TRIPLE LUMEN CENTRAL LINE INTACT ON THE LEFT JUGULAR. MADE PT COMFORTABLE. PLACED CALL LIGHT WITH IN REACH. WILL CONTINUE TO MONITOR.
[2017-03-13 21:48] VITALS: BP 152/81
--- NOTE | 2017-03-14 00:54 | NUR ---
PT RESTING WITH EYES CLOSED. SHOWS NO DISTRESS AND DISCOMFORT. WILL CONTINUE TO MONITOR.
[2017-03-14 06:15] VITALS: BP 142/75
--- NOTE | 2017-03-14 06:50 | NUR ---
PT QUIET AND RESTING. NO SIGNIFICANT CHANGES NOTED. IV INTACT AND INFUSING ORDERED. MADE PT COMFORTABLE. WILL ENDORSE TO THE AM NURSE ACCORDINGLY.
[2017-03-14 07:16] LABS: BASOPHIL % 0.1 % (0-2); PLATELET COUNT 209 x10^3mcL (130-400)
[2017-03-14 07:23] LABS: CALCIUM 7.7 mg/dL (8.5-10.1); CARBON DIOXIDE 25.4 mmol/L (21-32); CHLORIDE SERUM 111 mmol/L (98-107); CREATININE SERUM 1.2 mg/dL (0.6-1.0); GLUCOSE SERUM 175 mg/dL (74-106); MAGNESIUM 2.6 mg/dL (1.8-2.4); PHOSPHOROUS 3.9 mg/dL (2.5-4.9); POTASSIUM SERUM 3.9 mmol/L (3.5-5.1); SODIUM SERUM 143 mmol/L (136-145)
[2017-03-14 07:26] LABS: RED CELL DISTRIBUTION WIDTH 15.6 % (11.5-14.5)
[2017-03-14 09:29] VITALS: BP 151/74
--- NOTE | 2017-03-14 10:26 | NUR ---
0800 RECEIVED PATIENT ALERT AND ORIENTED X 4, NO SIGN OF DISTRESS OR SOB NO PAIN VERBALIZED, LEFT JUGULAR IV SITE INTACT, BLE EDEMATOUS NON PITTING, PATIENT LYING WITH HOB ELEVATED BED IN LOW POSITION CALL LIGHT IN PLACE SIDE RAILS UP
--- NOTE | 2017-03-14 12:28 | NUR ---
PATIENT SLEEPING EASILY [place] NO SIGN OF DISTRESS OR SOB NO PAIN VERBALIZED, BS 239 GAVE 6 UNITS REGULAR INSULIN PRESCRIBED, LYING IN BED SUPINE BED IN LOW POSITION CALL LIGHT IN APCLE SIDE RAILS UP
[2017-03-14 13:00] VITALS: BP 139/70
--- NOTE | 2017-03-14 13:25 | NUR ---
PT NOTES TIME 5279-1832 S: CHART REVIEWED AND CLEARED FOR PT BY NURSINGRICO. RECEIVED PT ON BEDSIDE COMMODE, AGREEABLE TO THERAPY. NO C/O PAIN AND DIZZINESS. O: BASELINE BP IN SITTING 144/72, 96% ON RA THER ACT: MIN/MOD A WITH TRANSFERS FOR SAFETY. PT ABLE TO PERFORM BEDSIDE COMMODE TRANSFER AND ABLE TO TOLERATE SITTING UP IN RECLINER CHAIR FOR AT LEAST 60MIN WITH NURSING TO RETURN BTB. GAIT TRAINING. PT ABLE TO PERFORM GT 1X 10' AND A FEW SIDE STEPS WITH MINIMAL VC FOR UPRIGHT POSTURE AND TO INCREASE BASE OF SUPPORT WITH FAIR RETURN. NO LOB NOTED. REQUIRES MOTVATION TO PARTICIPATE WITH THERAPY. PT ABLE TO PERFORM THER-EX FOR WARMUP, AROM IN SITTING. TRANSFERRED PT TO RECLINER/BAM CHAIR AFTER THERAPY WITH NURSING NOTIFIED TO TRANSFER BTB. PLACED ALL NEEDS WITHIN REACH. CHECKED ON PATIENT TOWARDS LUNCH TIME, AND PATIENT WAS BACK IN BED. ALSO, EDUCATED PT ON SAFETY. P: DISCUSSED WITH PRIMARY PT. TE 8' GT 15' TA 15'
[2017-03-14 17:12] VITALS: BP 152/73
--- NOTE | 2017-03-14 18:00 | NUR ---
PATIENT ALERT AND ORIENTED X4 NO SIGN OF DISTRESS OR SOB NO PAIN VERBALIZED, BS 246 GAVE REGULAR INSULIN PRESCRIBED, PATIENT LYING IN BED HOB ELEVATED BED IN LOW POSITION CALL LIGHT IN PLACE SIDE RAILS UP FAMILY AT BEDSIDE
--- NOTE | 2017-03-14 20:06 | NUR ---
AAO X4 KENYAN SPEAKING TELE #23 INPLACED CONTROLLED AFIB HR @ 90'S NO CP OR PRESSURE, IVF NS INFUSING @ TKO LT JUGULAR LINE FLUSHING WELL NO SIGNS OF IRRITATION, SOB OR EXERTION LUNGS CTA NO DISTRESS RT PROT FOR TX, BLE TRACED EDEMA ELEVATED WITH PILLOW, +1 EDEMA LUE, NO SKIN BREAKDOWN, SHIFT ASSESSMENT DONE ATTENDED NEEDS CALL LIGHT AT REACH.
[2017-03-14 23:07] VITALS: BP 148/85
--- NOTE | 2017-03-15 00:15 | NUR ---
VISUALLY CHECKED AT INTERVALS, SOUND ASLEEP NO S/SX OF PAIN NOR DISCOMFORTS, RUNNING AFIB IN THE MONITOR, IVF INFUSING WELL ORDERED, CALL LIGHT AT REACH CONT TO MONITOR.
[2017-03-15 06:20] VITALS: BP 138/76
--- NOTE | 2017-03-15 06:47 | NUR ---
SLEPT WELL DURING THE SHIFT NO C/O CP OR PRESSURE, ON CONTROLLED AFIB HR @ 80'S, DUE MEDS GIVEN WILL CONT TO MONITOR.
--- NOTE | 2017-03-15 07:20 | NUR ---
AAO X4.MOSTLY ROMANIAN.DENIES ANY PAIN/DISCOMFORT.LUNGS CLEAR.ON AFIB ON THE MONITOR KJ=[id number]. IVF NS GOING AT 10 ML/HR INFUSING WELL.GORMAN DRAINING TO GRAVITY YELLOW IN COLOR.CALL LIGHT WITHIN REACH.INSTRUCTED TO CALL FOR ANY PAIN/DISCOMFORT.PT VERBALIZES UNDERTANDING.WILL CONTINUE TO MONITOR PT.
[2017-03-15 07:38] LABS: PLATELET COUNT 229 x10^3mcL (130-400)
[2017-03-15 07:45] LABS: BASOPHIL % 0 % (0-2); RED CELL DISTRIBUTION WIDTH 15.9 % (11.5-14.5)
--- NOTE | 2017-03-15 08:00 | NUR ---
RESUMED BLADDER TRAINING.
--- NOTE | 2017-03-15 08:03 | NUR ---
AND MEDICINE TEAM AT BEDSIDE,INFORMED PT THAT THEY FOUND A PLACE FOR HER AT [facility] TOMORROW.
[2017-03-15 08:09] LABS: CALCIUM 7.8 mg/dL (8.5-10.1); CARBON DIOXIDE 26.2 mmol/L (21-32); CHLORIDE SERUM 109 mmol/L (98-107); CREATININE SERUM 0.9 mg/dL (0.6-1.0); GLUCOSE SERUM 187 mg/dL (74-106); MAGNESIUM 1.9 mg/dL (1.8-2.4); PHOSPHOROUS 3.9 mg/dL (2.5-4.9); SODIUM SERUM 143 mmol/L (136-145)
[2017-03-15 10:37] VITALS: BP 133/69
--- NOTE | 2017-03-15 12:30 | NUR ---
PT GOT UP TO THE CHAIR FOR LUNCH.
[2017-03-15 13:16] VITALS: BP 150/61
--- NOTE | 2017-03-15 15:15 | NUR ---
CENTRAL LINE D/C'D ON L IJ.OBSERVED ASEPTIC TECHNIQUE.BLUE TIP INTACT.APPLIED PRESSURE FOR 15 MINS. NO BLEEDING NOTED.
[2017-03-15 17:03] VITALS: BP 122/63
[2017-03-15 17:41] VITALS: BP 122/63
--- NOTE | 2017-03-15 18:25 | NUR ---
SHERIF DC'D WITH 500ML OUT.
--- NOTE | 2017-03-15 18:29 | NUR ---
NO SIGNIFICANT CHANGE NOTED.WILL ENDORSE TO NEXT SHIFT.
--- NOTE | 2017-03-15 19:30 | NUR ---
PT IS ALERT AND ORIENTED. PLEASANT AND COOPERATIVE. LUNGS CLEAR ON AUSCULTATIONS BILATERALLY UPPER AND LOWER BASES. 02SAT ROOM AIR. SHE IS ALSO SPEAKS MACEDONIAN. GENERALIZED WEAKNESS. FAMILY AT BEDSIDE. HAS PT. STILL HAS IV NS AT 10 ML PER HOUR INFUSING WELL IN THE LEFT FOREARM. PATENT AND INTACT. GORMAN CATHETER WAS DISCONTINUED AT AROUND 1830. USING BEDSIDE COMMODE. PT ON XARELTO. STILL GETTING THE LEVAQUIN IV SOLUMEDROL. WILL CONTINUE TO MONITOR.
[2017-03-15 21:41] VITALS: BP 150/86
--- NOTE | 2017-03-16 01:00 | NUR ---
NOTED DRY SKIN ABRASIONS ON HER BACK. AND PRESENCE OF RIGHT AND LEFT BUTTOCKS SORES.APPLIED Z-GUARD.
[2017-03-16 05:07] VITALS: BP 158/84
--- NOTE | 2017-03-16 05:22 | NUR ---
ASSISTED THE PT TO USE THE BEDSIDE COMMODE. REQUIRED EXTENSIVE ASSISTANCE WITH ADL'S. HAS SOME DISCOMFORT FROM HER CHEST WHEN SHE GOT BACK TO BED. OBESE AND SHE KNOWS ABOUT IT. MADE COMFORTABLE IN BED. CALL LIGHT WITHIN EASY REACH.
[2017-03-16 06:44] LABS: CALCIUM 8.1 mg/dL (8.5-10.1); CARBON DIOXIDE 24.5 mmol/L (21-32); CHLORIDE SERUM 108 mmol/L (98-107); CREATININE SERUM 0.8 mg/dL (0.6-1.0); GLUCOSE SERUM 193 mg/dL (74-106); MAGNESIUM 1.9 mg/dL (1.8-2.4); PHOSPHOROUS 3.4 mg/dL (2.5-4.9); POTASSIUM SERUM 3.7 mmol/L (3.5-5.1); SODIUM SERUM 142 mmol/L (136-145)
[2017-03-16 07:07] LABS: PLATELET COUNT 233 x10^3mcL (130-400)
[2017-03-16 07:19] LABS: BASOPHIL % 0 % (0-2); RED CELL DISTRIBUTION WIDTH 16.2 % (11.5-14.5)
--- NOTE | 2017-03-16 07:55 | NUR ---
REASSESSMENT DONE. PT COOPERATES WITH MOST OF CARE. REFUSED BUTTOCKS SORES ASSESSMENT. PT DENIES CP, SOB. ON 2LNC. IV HEP LOCKED TO LFA. BED IN LOWEST POSITION, CALL LIGHT WITHIN REACH. WILL CONTINUE TO MONITOR.
--- NOTE | 2017-03-16 09:25 | NUR ---
DR. CROCKER AND MADE AWARE OF WBC IS 13.5 TODAY.
[2017-03-16 10:17] VITALS: BP 145/117
[2017-03-16] MEDS ORDERED: BAY GT (12:18)
[2017-03-16] MEDS ORDERED: XARELTO20 M1 PO (12:23)
--- NOTE | 2017-03-16 12:25 | NUR ---
BLOOD GLUCOSE: 224 COVERED WITH INSULIN PER SLIDING SCALE. PT TOLERATED WELL. CALL LIGHT WITHIN REACH.
[2017-03-16] MEDS ORDERED: MEDDP PO (12:37)
[2017-03-16] MEDS ORDERED: NIT0.4 SL (13:41)
[2017-03-16] MEDS ORDERED: LOP50 PO (13:41)
[2017-03-16] MEDS ORDERED: HUMULIN R100 U/1 M1 SC (13:42)
[2017-03-16] MEDS ORDERED: LEVEMIR100 U/M1 SQ (13:42)
[2017-03-16 13:52] VITALS: BP 151/85
--- NOTE | 2017-03-16 13:55 | NUR ---
ASSISTED PT TO AMBULATE TO RESTROOM. PT NEEDS ASSISTANCE WHEN AMBULATING. PT TOLERATED WELL. PROVIDED COMFORT IN BED. PT O2SAT: 96% ON ROOM AIR. PT DENIES SOB. PT STATES PAIN AT RIBS 6/10 AFTER AMBULATION, MEDICATED PER EMAR. PT TOLERATED WELL. CALL LIGHT WITHIN REACH. DAUGHTER AT BEDSIDE.
--- NOTE | 2017-03-16 14:43 | NUR ---
PT NOTES CLEARED BY RN FOR P.T. TX. FIRST ATTEMPT FOR P.T. TX IN A.M. PATIENT DECLINED TX. PATIENT DAUGHTER STATED, "SHE JUST RETURNED TO THE BED. SHE WAS JUST UP WITH THE NURSES." PATIENT EDUCATED ON THE IMPORTANCE OF PARTICIPATING IN THERAPY. PATIENT VERBALIZED UNDERSTANDING. BUT STILL REQUESTED TO BE SEEN AT A LATER TIME. SECOND ATTEMPT (1330), PATIENT DECLINED TX. RN PRESENT AT BEDSIDE ALONG W/ DAUGHTER. RN STATED. PATIENT "WAS JUST UP TO THE RESTROOM. WE JUST GOT HER BACK TO BED." PATIENT FATIGUE & DECLINED TO PARTICIPATE IN THERAPY. CONTINUED EDUCATED ON PARTICIPATING IN THERAPY & SAFETY, BUT PATIENT STILL DECLINED. LEFT IN CARE OF RN & DAUGHTER. PRIMARY THERAPIST AWARE. PVE(2)
[2017-03-16 17:10] VITALS: BP 154/84
--- NOTE | 2017-03-16 18:00 | NUR ---
TRANSFER AKNOWLEDGEMENT FORMED SIGNED BY PATIENT, PT AGREED WITH TRANSFER. DISCHARGE INSTRUCTIONS GIVEN TO PT, PT VERBALIZED UNDERSTANDING. REPORT CALLED AND GIVEN TO DEREJE AT [facility]. IV WAS DC'D CATHETER INTACT, NO PHLEBITIS NOTED. TELE BOX REMOVED. PT ESCORTED OUT OF UNIT VIA WHEELCHAIR.
== END 2017-03-16 18:03 | DRG 207 ==
LOC: ED 07:32 → IC 09:48 → DU 09:48 → IC 11:17 → DU 03-09 19:15
PROVIDERS: Emergency Medicine; Family Medicine; ADMIT Family Medicine
PROC: 5A1955Z Respiratory Ventilation, Greater than 96 Consecutive Hours (ICD-10-PCS; principal; 2017-03-04)
PROC: 0BH17EZ Insertion of Endotracheal Airway into Trachea, Via Natural or Artificial Opening (ICD-10-PCS; 2017-03-04)
PROC: 03HY32Z Insertion of Monitoring Device into Upper Artery, Percutaneous Approach (ICD-10-PCS; 2017-03-04)
PROC: 05HM33Z Insertion of Infusion Device into Right Internal Jugular Vein, Percutaneous Approach (ICD-10-PCS; 2017-03-04)
PROC: B543ZZA Ultrasonography of Right Jugular Veins, Guidance (ICD-10-PCS; 2017-03-04)
PROC: 05HN33Z Insertion of Infusion Device into Left Internal Jugular Vein, Percutaneous Approach (ICD-10-PCS; 2017-03-04)
PROC: B544ZZA Ultrasonography of Left Jugular Veins, Guidance (ICD-10-PCS; 2017-03-04)
PROC: 5A12012 Performance of Cardiac Output, Single, Manual (ICD-10-PCS; 2017-03-04)
PROC: 4A023N7 Measurement of Cardiac Sampling and Pressure, Left Heart, Percutaneous Approach (ICD-10-PCS; 2017-03-06)
PROC: B2151ZZ Fluoroscopy of Left Heart using Low Osmolar Contrast (ICD-10-PCS; 2017-03-06)
PROC: B2111ZZ Fluoroscopy of Multiple Coronary Arteries using Low Osmolar Contrast (ICD-10-PCS; 2017-03-06)
DX: J96.02 Acute respiratory failure with hypercapnia (principal); J69.0 Pneumonitis due to inhalation of food and vomit; N17.0 Acute kidney failure with tubular necrosis; I50.43 Acute on chronic combined systolic (congestive) and diastolic (congestive) heart failure; E43 Unspecified severe protein-calorie malnutrition; I42.9 Cardiomyopathy, unspecified; E87.2 Acidosis; N39.0 Urinary tract infection, site not specified; D68.69 Other thrombophilia; Z68.41 Body mass index [BMI] 40.0-44.9, adult; J96.01 Acute respiratory failure with hypoxia; I11.0 Hypertensive heart disease with heart failure; I48.91 Unspecified atrial fibrillation; J44.9 Chronic obstructive pulmonary disease, unspecified; G47.33 Obstructive sleep apnea (adult) (pediatric); E11.65 Type 2 diabetes mellitus with hyperglycemia; E03.9 Hypothyroidism, unspecified; D64.9 Anemia, unspecified; E66.01 Morbid (severe) obesity due to excess calories; Z79.84 Long term (current) use of oral hypoglycemic drugs; Z79.01 Long term (current) use of anticoagulants
CPT/HCPCS: CLHCL; 36556; 36600; 80307; 82962; 83880; 84439; 92610-GN; 97110-GP; 97116-GP; 97530-GP; A4628; A9500; C1769; C1887; C1894; C9113; J0171; J0330; J1642; J1644; J1815; J1885; J1940; J1956; J2001; J2060; J2250; J2270; J2543; J2704; J2785; J2920; J3010; J3475; J3480; J3490; J7030; J7040; J7050; Q0092; Q0177; Q9967

== ENCOUNTER 2017-03-21 22:07 | Inpatient (IN) | payer OTHER, MEDICAID ==
[~2017-03-21] VITALS: Ht 162.6 cm; Wt 126.6 kg
[~2017-03-21 22:07] MED LIST changes: +BAY GT; +HUMULIN R100 U/1 M1 SC; +LEVEMIR100 U/M1 SQ; +LOP50 PO; +MEDDP PO; +NIT0.4 SL
[2017-03-21 22:50] LABS: PLATELET COUNT 227 x10^3mcL (130-400)
[2017-03-21 22:51] LABS: BASOPHIL % 0 % (0-2); RED CELL DISTRIBUTION WIDTH 16.9 % (11.5-14.5)
[2017-03-21 23:04] LABS: CALCIUM 7.5 mg/dL (8.5-10.1); CARBON DIOXIDE 29.4 mmol/L (21-32); CHLORIDE SERUM 102 mmol/L (98-107); GLUCOSE SERUM 172 mg/dL (74-106); POTASSIUM SERUM 3.5 mmol/L (3.5-5.1); SODIUM SERUM 140 mmol/L (136-145)
[2017-03-21 23:16] LABS: ALKALINE PHOSPHATASE 96 U/L (46-116); ALT/SGPT 40 U/L (14-59); AST/SGOT 28 U/L (15-37); BILIRUBIN TOTAL 0.7 mg/dL (0.20-1.00); HDL CHOLESTEROL 56 mg/dL (40-60); TOTAL PROTEIN, SERUM 6.5 g/dL (6.4-8.2)
[2017-03-21 23:20] VITALS: BP 159/118
[2017-03-21 23:21] LABS: ALBUMIN 2.9 g/dL (3.4-5.0); CHOLESTEROL 120 mg/dL (<200)
[2017-03-22] VITALS (17 sets, daily range): BP systolic 72–121; BP diastolic 42–75
[2017-03-22 00:29] LABS: microscopic required? YES; urine erythrocyte 1+ (NEGATIVE)
[2017-03-22 02:06] LABS: MAGNESIUM 1.2 mg/dL (1.8-2.4); PHOSPHOROUS 3.9 mg/dL (2.5-4.9)
[2017-03-22 02:09] LABS: CHOLESTEROL/HDL RATIO 2.2
[2017-03-22 02:14] LABS: T3 TOTAL 0.87 ng/mL
[2017-03-22 02:36] LABS: FREE T4 1.17 ng/dL (0.76-1.46); FREE THYROXINE INDEX 2.3 ug/dL (1.4-4.5); T4(THYROXINE) 6.4 ug/dL (4.7-13.3)
[2017-03-22 06:54] LABS: BASOPHIL % 0.2 % (0-2)
[2017-03-22 07:09] LABS: PLATELET COUNT 123 x10^3mcL (130-400)
[2017-03-22 07:10] LABS: CALCIUM 7.1 mg/dL (8.5-10.1); CARBON DIOXIDE 26.8 mmol/L (21-32); CHLORIDE SERUM 106 mmol/L (98-107); CREATININE SERUM 1.2 mg/dL (0.6-1.0); MAGNESIUM 1.2 mg/dL (1.8-2.4); PHOSPHOROUS 3.3 mg/dL (2.5-4.9); POTASSIUM SERUM 3.2 mmol/L (3.5-5.1); SODIUM SERUM 142 mmol/L (136-145)
[2017-03-22 09:00] LABS: GLUCOSE SERUM 58 mg/dL (74-106)
[2017-03-23] VITALS (15 sets, daily range): BP systolic 69–142; BP diastolic 46–94
[2017-03-23 05:36] LABS: BASOPHIL % 0.3 % (0-2)
[2017-03-23 05:42] LABS: RED CELL DISTRIBUTION WIDTH 16.9 % (11.5-14.5)
[2017-03-23 05:43] LABS: PLATELET COUNT 41 x10^3mcL (130-400)
[2017-03-23 05:46] LABS: CALCIUM 6.8 mg/dL (8.5-10.1); CARBON DIOXIDE 24.2 mmol/L (21-32); CHLORIDE SERUM 108 mmol/L (98-107); CREATININE SERUM 1.4 mg/dL (0.6-1.0); GLUCOSE SERUM 147 mg/dL (74-106); MAGNESIUM 2.2 mg/dL (1.8-2.4); PHOSPHOROUS 3.5 mg/dL (2.5-4.9); POTASSIUM SERUM 3.3 mmol/L (3.5-5.1); SODIUM SERUM 141 mmol/L (136-145)
[2017-03-24] VITALS (21 sets, daily range): BP systolic 108–128; BP diastolic 59–89
[2017-03-24 05:36] LABS: CALCIUM 7.2 mg/dL (8.5-10.1); CARBON DIOXIDE 24.7 mmol/L (21-32); CHLORIDE SERUM 106 mmol/L (98-107); CREATININE SERUM 1.7 mg/dL (0.6-1.0); GLUCOSE SERUM 266 mg/dL (74-106); MAGNESIUM 2.2 mg/dL (1.8-2.4); PHOSPHOROUS 3.8 mg/dL (2.5-4.9); POTASSIUM SERUM 3.5 mmol/L (3.5-5.1); SODIUM SERUM 140 mmol/L (136-145)
[2017-03-24 05:46] LABS: BASOPHIL % 0 % (0-2); PLATELET COUNT 24 x10^3mcL (130-400); RED CELL DISTRIBUTION WIDTH 16.9 % (11.5-14.5)
[2017-03-25] VITALS (20 sets, daily range): BP systolic 110–162; BP diastolic 53–101
[2017-03-25 05:55] LABS: BASOPHIL % 0.1 % (0-2)
[2017-03-25 05:58] LABS: PLATELET COUNT 32 x10^3mcL (130-400)
[2017-03-25 06:13] LABS: CALCIUM 7.2 mg/dL (8.5-10.1); CARBON DIOXIDE 23.5 mmol/L (21-32); CHLORIDE SERUM 108 mmol/L (98-107); CREATININE SERUM 1.4 mg/dL (0.6-1.0); GLUCOSE SERUM 312 mg/dL (74-106); MAGNESIUM 2.1 mg/dL (1.8-2.4); PHOSPHOROUS 2.7 mg/dL (2.5-4.9); POTASSIUM SERUM 3.5 mmol/L (3.5-5.1); SODIUM SERUM 140 mmol/L (136-145)
[2017-03-26] VITALS (16 sets, daily range): BP systolic 104–159; BP diastolic 54–663
[2017-03-26 05:40] LABS: BASOPHIL % 0 % (0-2); PLATELET COUNT 66 x10^3mcL (130-400); RED CELL DISTRIBUTION WIDTH 17.2 % (11.5-14.5)
[2017-03-26 05:50] LABS: CALCIUM 7.7 mg/dL (8.5-10.1); CARBON DIOXIDE 23.4 mmol/L (21-32); CHLORIDE SERUM 108 mmol/L (98-107); CREATININE SERUM 1.5 mg/dL (0.6-1.0); GLUCOSE SERUM 272 mg/dL (74-106); MAGNESIUM 2.2 mg/dL (1.8-2.4); PHOSPHOROUS 2.9 mg/dL (2.5-4.9); POTASSIUM SERUM 3.8 mmol/L (3.5-5.1); SODIUM SERUM 140 mmol/L (136-145)
[2017-03-27] VITALS (9 sets, daily range): BP systolic 108–158; BP diastolic 65–90
[2017-03-27 05:38] LABS: BASOPHIL % 0.1 % (0-2)
[2017-03-27 05:47] LABS: PLATELET COUNT 100 x10^3mcL (130-400); RED CELL DISTRIBUTION WIDTH 17.4 % (11.5-14.5)
[2017-03-27 05:52] LABS: CALCIUM 7.6 mg/dL (8.5-10.1); CARBON DIOXIDE 24.2 mmol/L (21-32); CHLORIDE SERUM 110 mmol/L (98-107); CREATININE SERUM 1.4 mg/dL (0.6-1.0); GLUCOSE SERUM 130 mg/dL (74-106); PHOSPHOROUS 2.9 mg/dL (2.5-4.9); POTASSIUM SERUM 3.9 mmol/L (3.5-5.1); SODIUM SERUM 142 mmol/L (136-145)
[2017-03-28] VITALS (9 sets, daily range): BP systolic 133–156; BP diastolic 72–96
[2017-03-28 05:21] LABS: BASOPHIL % 0.3 % (0-2); PLATELET COUNT 155 x10^3mcL (130-400)
[2017-03-28 05:31] LABS: CARBON DIOXIDE 27.2 mmol/L (21-32); CHLORIDE SERUM 113 mmol/L (98-107); CREATININE SERUM 1.1 mg/dL (0.6-1.0); GLUCOSE SERUM 124 mg/dL (74-106); MAGNESIUM 1.8 mg/dL (1.8-2.4); POTASSIUM SERUM 3.8 mmol/L (3.5-5.1); SODIUM SERUM 148 mmol/L (136-145)
[2017-03-28 05:32] LABS: RED CELL DISTRIBUTION WIDTH 17.6 % (11.5-14.5)
[2017-03-29] VITALS (9 sets, daily range): BP systolic 142–186; BP diastolic 73–114
[2017-03-29 05:29] LABS: BASOPHIL % 0.3 % (0-2); PLATELET COUNT 217 x10^3mcL (130-400)
[2017-03-29 05:32] LABS: CALCIUM 8.2 mg/dL (8.5-10.1); CARBON DIOXIDE 28.3 mmol/L (21-32); CHLORIDE SERUM 110 mmol/L (98-107); CREATININE SERUM 1.1 mg/dL (0.6-1.0); GLUCOSE SERUM 172 mg/dL (74-106); MAGNESIUM 1.8 mg/dL (1.8-2.4); PHOSPHOROUS 3.8 mg/dL (2.5-4.9); POTASSIUM SERUM 3.6 mmol/L (3.5-5.1); SODIUM SERUM 146 mmol/L (136-145)
[2017-03-29 05:39] LABS: RED CELL DISTRIBUTION WIDTH 17.6 % (11.5-14.5)
[2017-03-30 05:13] VITALS: BP 128/61
[2017-03-30 05:23] LABS: BASOPHIL % 1.4 % (0-2); PLATELET COUNT 286 x10^3mcL (130-400)
[2017-03-30 05:25] LABS: RED CELL DISTRIBUTION WIDTH 17.6 % (11.5-14.5)
[2017-03-30 05:56] LABS: CALCIUM 8.4 mg/dL (8.5-10.1); CARBON DIOXIDE 28.8 mmol/L (21-32); CHLORIDE SERUM 109 mmol/L (98-107); CREATININE SERUM 0.9 mg/dL (0.6-1.0); GLUCOSE SERUM 106 mg/dL (74-106); MAGNESIUM 1.7 mg/dL (1.8-2.4); PHOSPHOROUS 3.3 mg/dL (2.5-4.9); POTASSIUM SERUM 3.3 mmol/L (3.5-5.1); SODIUM SERUM 146 mmol/L (136-145)
[2017-03-30 08:23] VITALS: Ht 162.6 cm; Wt 126.6 kg
[2017-03-30 12:00] VITALS: BP 169/73
[2017-03-30 16:00] VITALS: BP 151/77
[2017-03-30 19:50] VITALS: BP 124/67
[2017-03-30 23:05] VITALS: BP 158/75
[2017-03-31] VITALS (7 sets, daily range): BP systolic 128–153; BP diastolic 71–99
[2017-03-31 05:46] LABS: CALCIUM 8.4 mg/dL (8.5-10.1); CARBON DIOXIDE 32.3 mmol/L (21-32); CHLORIDE SERUM 109 mmol/L (98-107); CREATININE SERUM 1.1 mg/dL (0.6-1.0); GLUCOSE SERUM 101 mg/dL (74-106); MAGNESIUM 2.1 mg/dL (1.8-2.4); PHOSPHOROUS 4.3 mg/dL (2.5-4.9); SODIUM SERUM 148 mmol/L (136-145)
[2017-03-31 05:49] LABS: BASOPHIL % 0.9 % (0-2); PLATELET COUNT 317 x10^3mcL (130-400)
[2017-03-31 05:50] LABS: RED CELL DISTRIBUTION WIDTH 18.3 % (11.5-14.5)
[2017-04-01 06:35] VITALS: BP 129/86
[2017-04-01 06:48] LABS: BASOPHIL % 0.4 % (0-2); PLATELET COUNT 361 x10^3mcL (130-400)
[2017-04-01 06:56] LABS: CALCIUM 7.9 mg/dL (8.5-10.1); CARBON DIOXIDE 33.9 mmol/L (21-32); CHLORIDE SERUM 106 mmol/L (98-107); GLUCOSE SERUM 93 mg/dL (74-106); MAGNESIUM 1.7 mg/dL (1.8-2.4); PHOSPHOROUS 4.3 mg/dL (2.5-4.9); POTASSIUM SERUM 3.8 mmol/L (3.5-5.1); SODIUM SERUM 144 mmol/L (136-145)
[2017-04-01 07:24] LABS: RED CELL DISTRIBUTION WIDTH 18.1 % (11.5-14.5)
[2017-04-01 09:38] VITALS: BP 101/44
[2017-04-01 13:58] VITALS: BP 124/68
[2017-04-01 18:17] VITALS: BP 107/58
[2017-04-01 21:09] VITALS: BP 122/78
[2017-04-02 05:24] VITALS: BP 125/75
[2017-04-02 10:05] VITALS: BP 106/50
[2017-04-02 18:03] VITALS: BP 125/74
[2017-04-02 20:37] VITALS: BP 139/79
[2017-04-03 06:17] LABS: BASOPHIL % 0.5 % (0-2); PLATELET COUNT 398 x10^3mcL (130-400)
[2017-04-03 06:54] VITALS: BP 142/75
[2017-04-03 07:01] LABS: RED CELL DISTRIBUTION WIDTH 18.9 % (11.5-14.5)
[2017-04-03 09:55] VITALS: BP 118/85
[2017-04-03 13:30] VITALS: BP 128/65
[2017-04-03 17:08] VITALS: BP 138/77
[2017-04-03 20:25] VITALS: BP 137/79
[2017-04-04 05:28] VITALS: BP 137/82
[2017-04-04 10:00] VITALS: BP 144/81
[2017-04-04] MEDS ORDERED: AMIODARONE HCL200 MG PO (10:56)
[2017-04-04] MEDS ORDERED: LOT1C TOP (11:02)
[2017-04-04] MEDS ORDERED: LEVEMIR100 U/M1 SQ (11:12)
[2017-04-04] MEDS ORDERED: NOVAPLUS LEVOF150 ML IV (11:14)
[2017-04-04] MEDS ORDERED: CLINDAMYCI600 MG/50 IV (11:15)
[2017-04-04] MEDS ORDERED: GLUCOTROL5 MG PO (11:18)
[2017-04-04] MEDS ORDERED: PREDNISONE10 M1 PO (11:21)
[2017-04-04 11:35] VITALS: BP 144/81
== END 2017-04-04 14:15 | DRG 870 ==
LOC: ED 22:07 → IC 03-22 00:25 → DU 03-31 16:16
PROVIDERS: Emergency Medicine; Family Medicine; ADMIT Family Medicine
PROC: 5A1955Z Respiratory Ventilation, Greater than 96 Consecutive Hours (ICD-10-PCS; principal; 2017-03-22)
PROC: 0BH17EZ Insertion of Endotracheal Airway into Trachea, Via Natural or Artificial Opening (ICD-10-PCS; 2017-03-22)
PROC: 05HM33Z Insertion of Infusion Device into Right Internal Jugular Vein, Percutaneous Approach (ICD-10-PCS; 2017-03-22)
PROC: B543ZZA Ultrasonography of Right Jugular Veins, Guidance (ICD-10-PCS; 2017-03-22)
DX: A41.9 Sepsis, unspecified organism (principal); J96.00 Acute respiratory failure, unspecified whether with hypoxia or hypercapnia; N17.0 Acute kidney failure with tubular necrosis; J69.0 Pneumonitis due to inhalation of food and vomit; E43 Unspecified severe protein-calorie malnutrition; Z68.41 Body mass index [BMI] 40.0-44.9, adult; E87.0 Hyperosmolality and hypernatremia; I24.8 Other forms of acute ischemic heart disease; D68.69 Other thrombophilia; I16.0 Hypertensive urgency; E83.42 Hypomagnesemia; E11.65 Type 2 diabetes mellitus with hyperglycemia; E11.51 Type 2 diabetes mellitus with diabetic peripheral angiopathy without gangrene; I48.2 Chronic atrial fibrillation; G47.33 Obstructive sleep apnea (adult) (pediatric); M19.90 Unspecified osteoarthritis, unspecified site; E03.9 Hypothyroidism, unspecified; E66.01 Morbid (severe) obesity due to excess calories; Z79.4 Long term (current) use of insulin; Z86.74 Personal history of sudden cardiac arrest; R65.20 Severe sepsis without septic shock; I48.0 Paroxysmal atrial fibrillation; I34.0 Nonrheumatic mitral (valve) insufficiency; I36.1 Nonrheumatic tricuspid (valve) insufficiency; E87.6 Hypokalemia; I25.10 Atherosclerotic heart disease of native coronary artery without angina pectoris; D69.6 Thrombocytopenia, unspecified; E87.8 Other disorders of electrolyte and fluid balance, not elsewhere classified; B37.2 Candidiasis of skin and nail; I35.8 Other nonrheumatic aortic valve disorders
CPT/HCPCS: 36556; 36600; 82962; 83880; 84439; 85378; 92610-GN; 94150; 97110-GP; 97116-GP; 97530-GP; A4628; C9113; J0330; J0360; J1642; J1815; J1940; J1956; J2060; J2250; J2270; J2370; J2405; J2543; J2704; J2920; J3010; J3475; J3480; J3490; J7030; J7040; J7620; Q0092

== ENCOUNTER 2017-09-26 02:44 | Inpatient (IN) | payer OTHER, MEDICAID ==
[~2017-09-26] VITALS: Ht 162.6 cm; Wt 97.8 kg
[~2017-09-26 02:44] MED LIST changes: +AMIODARONE HCL200 MG PO; +CLINDAMYCI600 MG/50 IV; +GLUCOTROL5 MG PO; +LOT1C TOP; +NOVAPLUS LEVOF150 ML IV; +PREDNISONE10 M1 PO
[2017-09-26 03:33] LABS: BASOPHIL % 0.7 % (0-2); PLATELET COUNT 357 x10^3mcL (130-400)
[2017-09-26 03:40] LABS: RED CELL DISTRIBUTION WIDTH 17.2 % (11.5-14.5)
[2017-09-26 03:42] LABS: CALCIUM 8.4 mg/dL (8.5-10.1); CARBON DIOXIDE 18.7 mmol/L (21-32); CHLORIDE SERUM 104 mmol/L (98-107); CREATININE SERUM 1.6 mg/dL (0.6-1.0); GLUCOSE SERUM 324 mg/dL (74-106); POTASSIUM SERUM 4.6 mmol/L (3.5-5.1); SODIUM SERUM 140 mmol/L (136-145)
[2017-09-26 03:47] LABS: ALBUMIN 3.4 g/dL (3.4-5.0); ALKALINE PHOSPHATASE 103 U/L (46-116); ALT/SGPT 48 U/L (14-59); AST/SGOT 55 U/L (15-37); BILIRUBIN TOTAL 0.72 mg/dL (0.20-1.00)
[2017-09-26 03:50] LABS: microscopic required? YES; urine erythrocyte 3+ (NEGATIVE)
[2017-09-26 05:35] LABS: FREE T4 1.21 ng/dL (0.76-1.46); FREE THYROXINE INDEX 3.5 ug/dL (1.4-4.5); T4(THYROXINE) 9.5 ug/dL (4.7-13.3)
[2017-09-26 05:37] LABS: CHOLESTEROL/HDL RATIO 2.4; MAGNESIUM 1.3 mg/dL (1.8-2.4); PHOSPHOROUS 6.1 mg/dL (2.5-4.9)
[2017-09-26 05:58] VITALS: BP 135/82
[2017-09-26 06:06] LABS: T3 TOTAL 0.56 ng/mL
[2017-09-26] MEDS ORDERED: KLOR-CON M1010 MEQ PO (06:46)
[2017-09-26] MEDS ORDERED: METFORMIN HCL1000 MG PO (06:46)
[2017-09-26] MEDS ORDERED: LEVOTHYROXIN0.075 M2 PO (06:47)
[2017-09-26] MEDS ORDERED: ISOSORBIDE MONO30 MG PO (06:47)
[2017-09-26] MEDS ORDERED: GOOD SENSE OMEP20 MG PO (06:48)
[2017-09-26] MEDS ORDERED: FUROSEMIDE40 MG PO (06:49)
[2017-09-26] MEDS ORDERED: ENALAPRIL MALEA10 MG PO (06:49)
[2017-09-26] MEDS ORDERED: AMIODARONE HCL200 MG PO (06:50)
[2017-09-26] MEDS ORDERED: XARELTO10 M1 PO (06:51)
[2017-09-26] MEDS ORDERED: LIPITOR40 MG PO (06:51)
[2017-09-26 07:03] VITALS: BP 135/82
[2017-09-26 09:28] VITALS: BP 132/68
[2017-09-26] MEDS ORDERED: XARELTO20 M1 PO (09:35)
[2017-09-26 13:44] VITALS: BP 130/92
[2017-09-26 17:02] VITALS: BP 139/71
[2017-09-26 23:00] VITALS: BP 134/74
[2017-09-27] VITALS (7 sets, daily range): BP systolic 92–159; BP diastolic 55–100
[2017-09-27 07:04] LABS: BASOPHIL % 0.3 % (0-2); PLATELET COUNT 281 x10^3mcL (130-400); RED CELL DISTRIBUTION WIDTH 17.3 % (11.5-14.5)
[2017-09-27 07:06] LABS: CALCIUM 8.3 mg/dL (8.5-10.1); CARBON DIOXIDE 26.1 mmol/L (21-32); CHLORIDE SERUM 106 mmol/L (98-107); CREATININE SERUM 1.2 mg/dL (0.6-1.0); GLUCOSE SERUM 140 mg/dL (74-106); POTASSIUM SERUM 3.9 mmol/L (3.5-5.1); SODIUM SERUM 140 mmol/L (136-145)
[2017-09-27 20:12] LABS: BASOPHIL % 0.4 % (0-2); PLATELET COUNT 317 x10^3mcL (130-400); RED CELL DISTRIBUTION WIDTH 17.1 % (11.5-14.5)
[2017-09-27 20:34] LABS: CALCIUM 7.7 mg/dL (8.5-10.1); CARBON DIOXIDE 25.3 mmol/L (21-32); CHLORIDE SERUM 101 mmol/L (98-107); CREATININE SERUM 1.5 mg/dL (0.6-1.0); GLUCOSE SERUM 277 mg/dL (74-106); POTASSIUM SERUM 4.7 mmol/L (3.5-5.1); SODIUM SERUM 136 mmol/L (136-145)
[2017-09-28 03:37] VITALS: BP 91/51
[2017-09-28 05:24] LABS: PLATELET COUNT 262 x10^3mcL (130-400)
[2017-09-28 05:25] LABS: RED CELL DISTRIBUTION WIDTH 17.1 % (11.5-14.5)
[2017-09-28 05:35] LABS: CALCIUM 8.1 mg/dL (8.5-10.1); CARBON DIOXIDE 29.5 mmol/L (21-32); CHLORIDE SERUM 106 mmol/L (98-107); CREATININE SERUM 1.5 mg/dL (0.6-1.0); GLUCOSE SERUM 107 mg/dL (74-106); PHOSPHOROUS 4.4 mg/dL (2.5-4.9); POTASSIUM SERUM 4.5 mmol/L (3.5-5.1); SODIUM SERUM 140 mmol/L (136-145)
[2017-09-28 09:34] VITALS: Ht 162.6 cm; Wt 97.8 kg
[2017-09-28 09:42] VITALS: BP 144/68
[2017-09-28 12:10] VITALS: BP 124/83
[2017-09-28 15:21] VITALS: BP 131/71
[2017-09-28 19:44] VITALS: BP 152/98
[2017-09-28 23:27] VITALS: BP 144/94
[2017-09-29] VITALS (7 sets, daily range): BP systolic 122–169; BP diastolic 53–87
[2017-09-29 05:31] LABS: BASOPHIL % 0.2 % (0-2); PLATELET COUNT 273 x10^3mcL (130-400)
[2017-09-29 05:41] LABS: CALCIUM 8.3 mg/dL (8.5-10.1); CARBON DIOXIDE 24.7 mmol/L (21-32); CHLORIDE SERUM 105 mmol/L (98-107); CREATININE SERUM 1.3 mg/dL (0.6-1.0); GLUCOSE SERUM 211 mg/dL (74-106); POTASSIUM SERUM 4.9 mmol/L (3.5-5.1); SODIUM SERUM 138 mmol/L (136-145)
[2017-09-30] VITALS (7 sets, daily range): BP systolic 132–154; BP diastolic 80–87
[2017-09-30 07:16] LABS: CALCIUM 8.4 mg/dL (8.5-10.1); CARBON DIOXIDE 24.9 mmol/L (21-32); CHLORIDE SERUM 102 mmol/L (98-107); CREATININE SERUM 1.3 mg/dL (0.6-1.0); GLUCOSE SERUM 258 mg/dL (74-106); POTASSIUM SERUM 4.5 mmol/L (3.5-5.1); SODIUM SERUM 135 mmol/L (136-145)
[2017-09-30 07:29] LABS: BASOPHIL % 0.7 % (0-2); PLATELET COUNT 283 x10^3mcL (130-400)
[2017-09-30 07:31] LABS: RED CELL DISTRIBUTION WIDTH 16.7 % (11.5-14.5)
[2017-10-01 05:44] VITALS: BP 126/71
[2017-10-01 06:23] LABS: BASOPHIL % 0.3 % (0-2); PLATELET COUNT 274 x10^3mcL (130-400)
[2017-10-01 06:45] LABS: CALCIUM 8.5 mg/dL (8.5-10.1); CARBON DIOXIDE 27.8 mmol/L (21-32); CHLORIDE SERUM 104 mmol/L (98-107); CREATININE SERUM 1.3 mg/dL (0.6-1.0); GLUCOSE SERUM 120 mg/dL (74-106); POTASSIUM SERUM 4.8 mmol/L (3.5-5.1); SODIUM SERUM 138 mmol/L (136-145)
[2017-10-01 09:34] VITALS: BP 117/56
[2017-10-01 09:36] VITALS: BP 143/71
[2017-10-01] MEDS ORDERED: COREG12.5 MG PO (11:19)
[2017-10-01] MEDS ORDERED: XARELTO15 M1 PO (11:46)
[2017-10-01] MEDS ORDERED: IPRATROPIUM BROM3 M2 HHN (12:25)
[2017-10-01] MEDS ORDERED: COR6 PO (12:29)
[2017-10-01 12:31] VITALS: BP 143/71
[2017-10-01] MEDS ORDERED: BACO TOP (12:45)
[2017-10-01] MEDS ORDERED: HIBICLENS118 ML TOP (12:45)
[2017-10-01] MEDS ORDERED: LASIX40 MG PO (12:48)
[2017-10-01 12:53] VITALS: BP 134/74
== END 2017-10-01 13:38 | disposition home or self-care (01) | DRG 291 ==
LOC: ED 02:44 → DU 04:45 → IC 04:45 → DU 05:45 → IC 09-27 19:25 → DU 09-29 06:09
PROVIDERS: Emergency Medicine; Family Medicine; Family Medicine Sports Medicine; ADMIT Student in an Organized Health Care Education/Training Program
DX: I11.0 Hypertensive heart disease with heart failure (principal); N17.0 Acute kidney failure with tubular necrosis; J96.01 Acute respiratory failure with hypoxia; N39.0 Urinary tract infection, site not specified; D68.69 Other thrombophilia; I50.43 Acute on chronic combined systolic (congestive) and diastolic (congestive) heart failure; E11.65 Type 2 diabetes mellitus with hyperglycemia; I48.2 Chronic atrial fibrillation; E83.42 Hypomagnesemia; E02 Subclinical iodine-deficiency hypothyroidism; G47.33 Obstructive sleep apnea (adult) (pediatric); E83.39 Other disorders of phosphorus metabolism; E78.1 Pure hyperglyceridemia; I35.1 Nonrheumatic aortic (valve) insufficiency; I34.0 Nonrheumatic mitral (valve) insufficiency; I36.1 Nonrheumatic tricuspid (valve) insufficiency; Z68.37 Body mass index [BMI] 37.0-37.9, adult
CPT/HCPCS: 36600; 83880; 84439; 94150; 97110-GP; 97116-GP; 97530-GP; J0360; J0696; J1815; J1940; J1956; J2270; J2920; J3475; J3490; J7030; J7620; Q0092

== ENCOUNTER 2018-04-01 23:43 | Inpatient (IN) | payer OTHER, MEDICAID ==
[~2018-04-01] VITALS: Ht 157.5 cm; Wt 98.0 kg
[~2018-04-01 23:43] MED LIST changes: +BACO TOP; +COR6 PO; +COREG12.5 MG PO; +HIBICLENS118 ML TOP; +KLOR-CON M1010 MEQ PO; +LASIX40 MG PO; +LEVOTHYROXIN0.075 M2 PO; +LIPITOR40 MG PO; +XARELTO10 M1 PO; +XARELTO15 M1 PO
[2018-04-02 00:19] LABS: BASOPHIL % 0.6 % (0-2); PLATELET COUNT 286 x10^3mcL (130-400)
[2018-04-02 00:24] LABS: RED CELL DISTRIBUTION WIDTH 18.8 % (11.5-14.5)
[2018-04-02 00:33] LABS: ALBUMIN 3.6 g/dL (3.4-5.0); ALKALINE PHOSPHATASE 124 U/L (46-116); ALT/SGPT 53 U/L (14-59); AST/SGOT 33 U/L (15-37); BILIRUBIN TOTAL 0.6 mg/dL (0.20-1.00); CALCIUM 8.2 mg/dL (8.5-10.1); CARBON DIOXIDE 19.4 mmol/L (21-32); CHLORIDE SERUM 104 mmol/L (98-107); CREATININE SERUM 1.7 mg/dL (0.6-1.0); GLUCOSE SERUM 364 mg/dL (74-106); LIPASE 154 IU/L (73-393); POTASSIUM SERUM 4.9 mmol/L (3.5-5.1); SODIUM SERUM 137 mmol/L (136-145); TOTAL PROTEIN, SERUM 7.2 g/dL (6.4-8.2)
[2018-04-02 02:19] LABS: microscopic required? NO
[2018-04-02 02:36] LABS: urine erythrocyte NEGATIVE (NEGATIVE)
[2018-04-02 03:11] LABS: MAGNESIUM 1.6 mg/dL (1.8-2.4); PHOSPHOROUS 6.1 mg/dL (2.5-4.9)
[2018-04-02 03:18] LABS: T3 TOTAL 0.61 ng/mL
[2018-04-02 03:20] LABS: FREE T4 1.26 ng/dL (0.76-1.46); T4(THYROXINE) 11.2 ug/dL (4.7-13.3)
[2018-04-02 04:10] VITALS: BP 143/75
[2018-04-02 06:30] LABS: CALCIUM 8.1 mg/dL (8.5-10.1); CARBON DIOXIDE 22.3 mmol/L (21-32); CHLORIDE SERUM 110 mmol/L (98-107); CREATININE SERUM 1.4 mg/dL (0.6-1.0); GLUCOSE SERUM 97 mg/dL (74-106); MAGNESIUM 1.5 mg/dL (1.8-2.4); PHOSPHOROUS 4.5 mg/dL (2.5-4.9); POTASSIUM SERUM 4.5 mmol/L (3.5-5.1); SODIUM SERUM 141 mmol/L (136-145)
[2018-04-02 07:00] LABS: BASOPHIL % 0.3 % (0-2); PLATELET COUNT 219 x10^3mcL (130-400)
[2018-04-02 07:03] LABS: RED CELL DISTRIBUTION WIDTH 18.9 % (11.5-14.5)
[2018-04-02 09:04] VITALS: BP 137/83
[2018-04-02 12:49] VITALS: BP 137/69
[2018-04-02 18:18] VITALS: BP 135/71
[2018-04-02 20:35] VITALS: BP 118/65
[2018-04-03 05:57] VITALS: BP 138/87
[2018-04-03 06:16] LABS: CARBON DIOXIDE 23.8 mmol/L (21-32); CHLORIDE SERUM 108 mmol/L (98-107); CREATININE SERUM 1.5 mg/dL (0.6-1.0); GLUCOSE SERUM 101 mg/dL (74-106); POTASSIUM SERUM 4.1 mmol/L (3.5-5.1); SODIUM SERUM 142 mmol/L (136-145)
[2018-04-03 07:10] LABS: BASOPHIL % 0.6 % (0-2); PLATELET COUNT 222 x10^3mcL (130-400)
[2018-04-03 07:36] LABS: RED CELL DISTRIBUTION WIDTH 19.4 % (11.5-14.5)
[2018-04-03 09:15] VITALS: BP 128/400
[2018-04-03 13:23] VITALS: BP 149/89
[2018-04-03 16:25] VITALS: BP 149/78
[2018-04-03 20:57] VITALS: BP 158/79
[2018-04-04 05:33] VITALS: BP 109/70
[2018-04-04 06:07] LABS: BASOPHIL % 0.7 % (0-2); PLATELET COUNT 225 x10^3mcL (130-400)
[2018-04-04 06:27] LABS: CALCIUM 8.1 mg/dL (8.5-10.1); CARBON DIOXIDE 28.7 mmol/L (21-32); CHLORIDE SERUM 108 mmol/L (98-107); CREATININE SERUM 1.3 mg/dL (0.6-1.0); GLUCOSE SERUM 118 mg/dL (74-106); MAGNESIUM 1.7 mg/dL (1.8-2.4); PHOSPHOROUS 3.9 mg/dL (2.5-4.9); POTASSIUM SERUM 4.2 mmol/L (3.5-5.1); SODIUM SERUM 142 mmol/L (136-145)
[2018-04-04 06:41] LABS: RED CELL DISTRIBUTION WIDTH 18.9 % (11.5-14.5)
[2018-04-04 09:00] VITALS: BP 130/54
[2018-04-04 12:00] VITALS: BP 102/41
[2018-04-04 15:40] VITALS: BP 132/77
[2018-04-04 21:38] VITALS: BP 122/68
[2018-04-05 05:38] VITALS: BP 140/61
[2018-04-05 06:33] LABS: BASOPHIL % 0.7 % (0-2); PLATELET COUNT 250 x10^3mcL (130-400)
[2018-04-05 06:37] LABS: CALCIUM 8.3 mg/dL (8.5-10.1); CARBON DIOXIDE 30.3 mmol/L (21-32); CHLORIDE SERUM 105 mmol/L (98-107); CREATININE SERUM 1.4 mg/dL (0.6-1.0); GLUCOSE SERUM 109 mg/dL (74-106); MAGNESIUM 2.1 mg/dL (1.8-2.4); PHOSPHOROUS 3.7 mg/dL (2.5-4.9); POTASSIUM SERUM 4.1 mmol/L (3.5-5.1); SODIUM SERUM 140 mmol/L (136-145)
[2018-04-05 07:02] VITALS: Ht 157.5 cm; Wt 98.0 kg
[2018-04-05 09:55] VITALS: BP 145/58
[2018-04-05 12:35] VITALS: BP 161/93
[2018-04-05 17:27] VITALS: BP 144/70
[2018-04-05 18:19] VITALS: BP 144/70
== END 2018-04-05 20:03 | disposition home or self-care (01) | DRG 280 ==
LOC: ED 23:43 → DU 04-02 01:32
PROVIDERS: Emergency Medicine; Family Medicine
DX: I11.0 Hypertensive heart disease with heart failure (principal); J96.21 Acute and chronic respiratory failure with hypoxia; I21.9 Acute myocardial infarction, unspecified; N17.0 Acute kidney failure with tubular necrosis; I50.43 Acute on chronic combined systolic (congestive) and diastolic (congestive) heart failure; I48.91 Unspecified atrial fibrillation; E11.65 Type 2 diabetes mellitus with hyperglycemia; I25.119 Atherosclerotic heart disease of native coronary artery with unspecified angina pectoris; G47.33 Obstructive sleep apnea (adult) (pediatric); E78.5 Hyperlipidemia, unspecified; E03.9 Hypothyroidism, unspecified; Z68.37 Body mass index [BMI] 37.0-37.9, adult; Z79.01 Long term (current) use of anticoagulants; Z79.84 Long term (current) use of oral hypoglycemic drugs; Z99.81 Dependence on supplemental oxygen
CPT/HCPCS: 36600; 83880; 84439; 97110-GP; 97116-GP; 97530-GP; J1940; J2543; J3490; J7030; J7620; Q0092

== ENCOUNTER 2018-09-11 03:13 | Inpatient (IN) | payer OTHER, MEDICAID ==
[~2018-09-11] VITALS: Ht 162.6 cm; Wt 96.7 kg
[2018-09-11 03:59] LABS: BASOPHIL % 0.7 % (0-2); PLATELET COUNT 317 x10^3mcL (130-400)
[2018-09-11 04:02] LABS: RED CELL DISTRIBUTION WIDTH 16.6 % (11.5-14.5)
[2018-09-11 04:07] LABS: CALCIUM 8.3 mg/dL (8.5-10.1); CARBON DIOXIDE 18.3 mmol/L (21-32); CHLORIDE SERUM 104 mmol/L (98-107); CREATININE SERUM 1.8 mg/dL (0.6-1.0); GLUCOSE SERUM 281 mg/dL (74-106); POTASSIUM SERUM 4.3 mmol/L (3.5-5.1); SODIUM SERUM 137 mmol/L (136-145)
[2018-09-11 04:11] LABS: ALBUMIN 3.5 g/dL (3.4-5.0); ALKALINE PHOSPHATASE 107 U/L (46-116); ALT/SGPT 45 U/L (14-59); AST/SGOT 44 U/L (15-37); BILIRUBIN TOTAL 0.5 mg/dL (0.20-1.00); TOTAL PROTEIN, SERUM 7.2 g/dL (6.4-8.2)
[2018-09-11] MEDS ORDERED: 1ST TIER UNILE1 EAC1 MC (04:40)
[2018-09-11] MEDS ORDERED: COREG12.5 MG PO (04:41)
[2018-09-11] MEDS ORDERED: TEST STRIPS1 EACH MC (04:42)
[2018-09-11] MEDS ORDERED: SIDEKICK BLOOD1 EACH (04:42)
[2018-09-11] MEDS ORDERED: VASOTEC20 MG PO (04:43)
[2018-09-11] MEDS ORDERED: TYLENOL WITH CO1 TA2 PO (04:43)
[2018-09-11] MEDS ORDERED: ASCORBIC ACID250 MG PO (04:44)
[2018-09-11] MEDS ORDERED: XARELTO10 M1 PO (04:44)
[2018-09-11 05:27] LABS: UA SPECIFIC GRAVITY 1.025 (1.005-1.035); microscopic required? YES; urine erythrocyte NEGATIVE (NEGATIVE)
[2018-09-11 05:55] LABS: FREE T4 1.37 ng/dL (0.76-1.46); FREE THYROXINE INDEX 3.5 ug/dL (1.4-4.5); MAGNESIUM 1.5 mg/dL (1.8-2.4); PHOSPHOROUS 5.5 mg/dL (2.5-4.9); T4(THYROXINE) 9.9 ug/dL (4.7-13.3)
[2018-09-11 05:58] LABS: CHOLESTEROL/HDL RATIO 2.2
[2018-09-11 06:11] LABS: T3 TOTAL 0.63 ng/mL
[2018-09-11 09:42] VITALS: BP 146/70
[2018-09-11 12:30] VITALS: BP 160/87
[2018-09-11 16:51] VITALS: BP 166/71
[2018-09-11 21:28] VITALS: BP 152/83
[2018-09-12] VITALS (9 sets, daily range): BP systolic 99–159; BP diastolic 63–119
[2018-09-12 07:25] LABS: CALCIUM 7.9 mg/dL (8.5-10.1); CARBON DIOXIDE 24.9 mmol/L (21-32); CHLORIDE SERUM 107 mmol/L (98-107); CREATININE SERUM 1.3 mg/dL (0.6-1.0); GLUCOSE SERUM 112 mg/dL (74-106); MAGNESIUM 1.5 mg/dL (1.8-2.4); PHOSPHOROUS 3.7 mg/dL (2.5-4.9); POTASSIUM SERUM 3.5 mmol/L (3.5-5.1); SODIUM SERUM 143 mmol/L (136-145)
[2018-09-12 07:48] LABS: BASOPHIL % 0.4 % (0-2); PLATELET COUNT 271 x10^3mcL (130-400)
[2018-09-12 08:02] LABS: RED CELL DISTRIBUTION WIDTH 15.9 % (11.5-14.5)
[2018-09-13 04:27] VITALS: BP 141/65
[2018-09-13 06:25] LABS: BASOPHIL % 0.7 % (0-2); PLATELET COUNT 288 x10^3mcL (130-400)
[2018-09-13 06:43] LABS: CALCIUM 8.2 mg/dL (8.5-10.1); CARBON DIOXIDE 27.8 mmol/L (21-32); CHLORIDE SERUM 106 mmol/L (98-107); CREATININE SERUM 1.4 mg/dL (0.6-1.0); GLUCOSE SERUM 86 mg/dL (74-106); MAGNESIUM 1.8 mg/dL (1.8-2.4); PHOSPHOROUS 4.1 mg/dL (2.5-4.9); POTASSIUM SERUM 3.9 mmol/L (3.5-5.1); SODIUM SERUM 142 mmol/L (136-145)
[2018-09-13 07:10] LABS: RED CELL DISTRIBUTION WIDTH 15.6 % (11.5-14.5)
[2018-09-13 08:12] VITALS: BP 109/85
[2018-09-13 08:14] VITALS: Ht 162.6 cm; Wt 96.7 kg
[2018-09-13 11:50] VITALS: BP 149/61
[2018-09-13 12:25] LABS: TOTAL IRON BINDING CAPACITY 368 ug/dL (250-450)
[2018-09-13 12:29] LABS: IRON 32 ug/dL (50-170)
[2018-09-13 16:37] VITALS: BP 135/85
[2018-09-13 22:01] VITALS: BP 150/74
[2018-09-14 05:18] VITALS: BP 148/76
[2018-09-14 06:47] LABS: BASOPHIL % 0.5 % (0-2); PLATELET COUNT 316 x10^3mcL (130-400)
[2018-09-14 07:05] LABS: RED CELL DISTRIBUTION WIDTH 16.8 % (11.5-14.5)
[2018-09-14 07:09] LABS: MAGNESIUM 1.9 mg/dL (1.8-2.4); PHOSPHOROUS 4.1 mg/dL (2.5-4.9)
[2018-09-14 08:15] VITALS: BP 157/58
[2018-09-14 09:03] VITALS: BP 157/58
[2018-09-14 17:26] VITALS: BP 151/86
[2018-09-14 21:35] VITALS: BP 158/82
[2018-09-15 05:48] VITALS: BP 123/62
[2018-09-15 10:45] VITALS: BP 172/79
[2018-09-15 10:50] LABS: CARBON DIOXIDE 28.3 mmol/L (21-32); CHLORIDE SERUM 107 mmol/L (98-107); CREATININE SERUM 1.3 mg/dL (0.6-1.0); GLUCOSE SERUM 112 mg/dL (74-106); POTASSIUM SERUM 3.6 mmol/L (3.5-5.1); SODIUM SERUM 142 mmol/L (136-145)
[2018-09-15 10:52] LABS: BASOPHIL % 0.5 % (0-2); PLATELET COUNT 334 x10^3mcL (130-400)
[2018-09-15 10:56] LABS: ALBUMIN 3.5 g/dL (3.4-5.0); BILIRUBIN DIRECT 0.12 mg/dL (0.0-0.2); BILIRUBIN TOTAL 0.4 mg/dL (0.20-1.00); RED CELL DISTRIBUTION WIDTH 16.9 % (11.5-14.5); TOTAL PROTEIN, SERUM 6.6 g/dL (6.4-8.2)
[2018-09-15 13:20] VITALS: BP 149/68
[2018-09-15] MEDS ORDERED: RAN500A PO (14:16)
[2018-09-15] MEDS ORDERED: ALT5 PO (14:17)
[2018-09-15 18:06] VITALS: BP 149/68
== END 2018-09-15 18:58 | disposition home or self-care (01) | DRG 291 ==
LOC: ED 03:13 → DU 04:37
PROVIDERS: Emergency Medicine; Family Medicine; Internal Medicine; Internal Medicine Gastroenterology
PROC: 0DB68ZX Excision of Stomach, Via Natural or Artificial Opening Endoscopic, Diagnostic (ICD-10-PCS; principal; 2018-09-15 08:00)
PROC: 0DBF8ZZ Excision of Right Large Intestine, Via Natural or Artificial Opening Endoscopic (ICD-10-PCS; 2018-09-15 08:00)
PROC: 0DBN8ZZ Excision of Sigmoid Colon, Via Natural or Artificial Opening Endoscopic (ICD-10-PCS; 2018-09-15 08:00)
DX: I11.0 Hypertensive heart disease with heart failure (principal); J96.21 Acute and chronic respiratory failure with hypoxia; N17.0 Acute kidney failure with tubular necrosis; N39.0 Urinary tract infection, site not specified; M48.54XA Collapsed vertebra, not elsewhere classified, thoracic region, initial encounter for fracture; I50.43 Acute on chronic combined systolic (congestive) and diastolic (congestive) heart failure; J20.9 Acute bronchitis, unspecified; E11.65 Type 2 diabetes mellitus with hyperglycemia; D89.9 Disorder involving the immune mechanism, unspecified; I48.2 Chronic atrial fibrillation; K44.9 Diaphragmatic hernia without obstruction or gangrene; K31.7 Polyp of stomach and duodenum; K29.70 Gastritis, unspecified, without bleeding; K57.30 Diverticulosis of large intestine without perforation or abscess without bleeding; E83.42 Hypomagnesemia; E83.51 Hypocalcemia; G47.33 Obstructive sleep apnea (adult) (pediatric); I25.10 Atherosclerotic heart disease of native coronary artery without angina pectoris; K76.0 Fatty (change of) liver, not elsewhere classified; D63.8 Anemia in other chronic diseases classified elsewhere; I25.2 Old myocardial infarction; Z68.31 Body mass index [BMI] 31.0-31.9, adult; Z91.81 History of falling; Z86.74 Personal history of sudden cardiac arrest; Z79.01 Long term (current) use of anticoagulants; Z79.84 Long term (current) use of oral hypoglycemic drugs; Z99.81 Dependence on supplemental oxygen; Z22.322 Carrier or suspected carrier of Methicillin resistant Staphylococcus aureus
CPT/HCPCS: 36600; 43235; 45378; 82962; 83880; 84439; 97110-GP; 97116-GP; 97530-GP; J0696; J1200; J1610; J1815; J1940; J2250; J2310; J3010; J3490; J7030; J7040; Q0092

== ENCOUNTER 2018-11-17 09:06 | Inpatient (IN) | payer OTHER, MEDICAID ==
[~2018-11-17] VITALS: Ht 162.6 cm; Wt 92.6 kg
[~2018-11-17 09:06] MED LIST changes: +1ST TIER UNILE1 EAC1 MC; +ALT5 PO; +ASCORBIC ACID250 MG PO; +RAN500A PO; +SIDEKICK BLOOD1 EACH; +TEST STRIPS1 EACH MC; +TYLENOL WITH CO1 TA2 PO; +VASOTEC20 MG PO
[2018-11-17] MEDS ORDERED: ENALAPRIL20 M1 PO (09:26)
[2018-11-17] MEDS ORDERED: METFORMIN HYDR500 M1 PO (09:26)
[2018-11-17 10:25] LABS: CALCIUM 8.6 mg/dL (8.5-10.1); CARBON DIOXIDE 22.1 mmol/L (21-32); CHLORIDE SERUM 104 mmol/L (98-107); CREATININE SERUM 1.6 mg/dL (0.6-1.0); GLUCOSE SERUM 345 mg/dL (74-106); POTASSIUM SERUM 4.1 mmol/L (3.5-5.1); SODIUM SERUM 142 mmol/L (136-145)
[2018-11-17 10:29] LABS: ALKALINE PHOSPHATASE 121 U/L (46-116); ALT/SGPT 31 U/L (14-59); AST/SGOT 23 U/L (15-37); BILIRUBIN TOTAL 0.5 mg/dL (0.20-1.00); TOTAL PROTEIN, SERUM 7.1 g/dL (6.4-8.2)
[2018-11-17 10:32] LABS: ALBUMIN 3.1 g/dL (3.4-5.0); BASOPHIL % 0.7 % (0-2)
[2018-11-17 10:36] LABS: PLATELET COUNT 426 x10^3mcL (130-400); RED CELL DISTRIBUTION WIDTH 16.9 % (11.5-14.5)
[2018-11-17 15:24] LABS: MAGNESIUM 1.5 mg/dL (1.8-2.4); PHOSPHOROUS 4.2 mg/dL (2.5-4.9)
[2018-11-17 15:27] LABS: T3 TOTAL 0.5 ng/mL
[2018-11-17 15:33] LABS: FREE T4 1.44 ng/dL (0.76-1.46); FREE THYROXINE INDEX 4.3 ug/dL (1.4-4.5)
[2018-11-17 16:15] VITALS: BP 181/86
[2018-11-17 21:03] VITALS: BP 99/69
[2018-11-18 05:35] VITALS: BP 125/71
[2018-11-18 07:10] LABS: CALCIUM 8.1 mg/dL (8.5-10.1); CARBON DIOXIDE 28.8 mmol/L (21-32); CHLORIDE SERUM 105 mmol/L (98-107); CREATININE SERUM 1.5 mg/dL (0.6-1.0); GLUCOSE SERUM 137 mg/dL (74-106); MAGNESIUM 1.5 mg/dL (1.8-2.4); POTASSIUM SERUM 3.7 mmol/L (3.5-5.1); SODIUM SERUM 141 mmol/L (136-145)
[2018-11-18 07:11] LABS: TOTAL IRON BINDING CAPACITY 319 ug/dL (250-450)
[2018-11-18 07:14] LABS: IRON 27 ug/dL (50-170)
[2018-11-18 08:27] LABS: BASOPHIL % 0.6 % (0-2); PLATELET COUNT 377 x10^3mcL (130-400); RED BLOOD CELLS 3.04 M/mm3 (4.10-5.10); RED CELL DISTRIBUTION WIDTH 15.9 % (11.5-14.5)
[2018-11-18 09:00] VITALS: BP 171/98
[2018-11-18 10:30] VITALS: Ht 162.6 cm; Wt 92.6 kg
[2018-11-18 11:56] LABS: microscopic required? NO
[2018-11-18 12:13] LABS: UA SPECIFIC GRAVITY 1.015 (1.005-1.035); urine erythrocyte NEGATIVE (NEGATIVE)
[2018-11-18 13:11] VITALS: BP 121/84
[2018-11-18 21:06] VITALS: BP 150/69
[2018-11-19 06:06] VITALS: BP 166/68
[2018-11-19 06:42] LABS: BASOPHIL % 1.3 % (0-2); PLATELET COUNT 325 x10^3mcL (130-400)
[2018-11-19 06:43] LABS: CALCIUM 8.2 mg/dL (8.5-10.1); CARBON DIOXIDE 32.3 mmol/L (21-32); CHLORIDE SERUM 104 mmol/L (98-107); CREATININE SERUM 1.5 mg/dL (0.6-1.0); GLUCOSE SERUM 119 mg/dL (74-106); MAGNESIUM 1.6 mg/dL (1.8-2.4); PHOSPHOROUS 3.6 mg/dL (2.5-4.9); POTASSIUM SERUM 4.4 mmol/L (3.5-5.1); SODIUM SERUM 142 mmol/L (136-145)
[2018-11-19 06:56] LABS: RED CELL DISTRIBUTION WIDTH 16.2 % (11.5-14.5)
[2018-11-19 07:46] VITALS: BP 156/97
[2018-11-19 11:40] VITALS: BP 130/51
[2018-11-19 17:59] VITALS: BP 160/88
[2018-11-19 21:30] VITALS: BP 145/63
[2018-11-20 05:43] VITALS: BP 153/58
[2018-11-20 06:39] VITALS: BP 153/46
[2018-11-20 07:15] LABS: BASOPHIL % 0.6 % (0-2); CALCIUM 8.4 mg/dL (8.5-10.1); CARBON DIOXIDE 33.6 mmol/L (21-32); CHLORIDE SERUM 101 mmol/L (98-107); CREATININE SERUM 1.5 mg/dL (0.6-1.0); GLUCOSE SERUM 128 mg/dL (74-106); PLATELET COUNT 400 x10^3mcL (130-400); POTASSIUM SERUM 3.6 mmol/L (3.5-5.1); SODIUM SERUM 136 mmol/L (136-145)
[2018-11-20 07:36] VITALS: BP 178/94
[2018-11-20 08:12] LABS: RED CELL DISTRIBUTION WIDTH 16.2 % (11.5-14.5)
[2018-11-20 13:01] VITALS: BP 159/74
[2018-11-20 17:14] VITALS: BP 140/52
[2018-11-20 21:02] VITALS: BP 153/85
[2018-11-21 06:26] VITALS: BP 132/52
[2018-11-21 07:18] LABS: CALCIUM 8.3 mg/dL (8.5-10.1); CARBON DIOXIDE 30.3 mmol/L (21-32); CHLORIDE SERUM 103 mmol/L (98-107); CREATININE SERUM 1.5 mg/dL (0.6-1.0); GLUCOSE SERUM 136 mg/dL (74-106); POTASSIUM SERUM 3.7 mmol/L (3.5-5.1); SODIUM SERUM 139 mmol/L (136-145)
[2018-11-21 08:35] LABS: BASOPHIL % 0.6 % (0-2); PLATELET COUNT 417 x10^3mcL (130-400); RED CELL DISTRIBUTION WIDTH 16.5 % (11.5-14.5)
[2018-11-21 10:18] VITALS: BP 132/52
[2018-11-21 10:36] VITALS: BP 155/71
[2018-11-21 14:34] VITALS: BP 144/60
== END 2018-11-21 15:06 | disposition home health service (06) | DRG 291 ==
LOC: ED 09:06 → DU 14:18
PROVIDERS: Emergency Medicine; ADMIT Family Medicine
DX: I11.0 Hypertensive heart disease with heart failure (principal); N17.0 Acute kidney failure with tubular necrosis; J96.00 Acute respiratory failure, unspecified whether with hypoxia or hypercapnia; S32.048A Other fracture of fourth lumbar vertebra, initial encounter for closed fracture; I48.91 Unspecified atrial fibrillation; E11.65 Type 2 diabetes mellitus with hyperglycemia; I50.43 Acute on chronic combined systolic (congestive) and diastolic (congestive) heart failure; E83.42 Hypomagnesemia; E03.9 Hypothyroidism, unspecified; I48.2 Chronic atrial fibrillation; K76.0 Fatty (change of) liver, not elsewhere classified; D64.9 Anemia, unspecified; Z99.81 Dependence on supplemental oxygen; Z91.81 History of falling; Z68.37 Body mass index [BMI] 37.0-37.9, adult; Z86.74 Personal history of sudden cardiac arrest; Z79.01 Long term (current) use of anticoagulants; Z79.84 Long term (current) use of oral hypoglycemic drugs; W18.39XA Other fall on same level, initial encounter; Y93.89 Activity, other specified; Y92.018 Other place in single-family (private) house as the place of occurrence of the external cause
CPT/HCPCS: 82962; 83880; 84439; 97110-GP; 97116-GP; 97530-GP; J1940; J2270; J2405; J7030; Q0092